=== PATIENT | female | born 1945 | race Hispanic/Latino ===

== ENCOUNTER 2020-05-18 09:53 | Emergency (ER) | payer OTHER ==
--- NOTE | 2020-05-18 10:25 | EDPHYS ---
Physician Documentation [facility] Name: Adriana De La Paz Age: 74 yrs Sex: Female : 1945 Arrival Date: 05/18/2020 Time: 09:55 Bed 20 Private MD: ED Physician Mike Cole HPI: 05/18 10:26 This 74 yrs old Female presents to ER via Ambulatory with complaints of Back kb Pain. 10:26 The patient presents with pain that is acute, with no known mechanism of injury. The kb symptoms are located in the low back. Onset: The symptoms/episode began/occurred 4 day(s) ago. The pain does not radiate. Associated signs and symptoms: The patient has no apparent associated signs or symptoms. The problem was sustained without known cause. Modifying factors: The patient symptoms are alleviated by nothing, the patient symptoms are aggravated by any movement. Severity of symptoms: At their worst the symptoms were mild, moderate, in the emergency department the symptoms are unchanged. The patient has not experienced similar symptoms in the past. The patient has not recently seen a physician. pain across low back for 4 days. Denies injury, trauma, urinary symptoms. . Historical: - Allergies: 10:02 tramadol; jl7 - PMHx: 10:02 Diabetes - NIDDM; jl7 - Immunization history:: Adult Immunizations unknown. - Social history:: Smoking status: Patient reports the use of cigarette tobacco products, smokes one-half pack cigarettes per day. ROS: 10:29 Constitutional: Negative for fever, chills, and weight loss, Cardiovascular: Negative kb for chest pain, palpitations, and edema, Respiratory: Negative for shortness of breath, cough, wheezing, and pleuritic chest pain, Abdomen/GI: Negative for abdominal pain, nausea, vomiting, diarrhea, and constipation, : Negative for injury, bleeding, discharge, and swelling, MS/Extremity: Negative for injury and deformity, Skin: Negative for injury, rash, and discoloration, Neuro: Negative for headache, weakness, numbness, tingling, and seizure. 10:29 Back: Positive for pain at rest, pain with movement, of the low back area, Negative for injury or acute deformity, decreased range of motion, radiated pain. Exam: 10:29 Constitutional: This is a well developed, well nourished patient who is awake, alert, kb and in no acute distress. Head/Face: Normocephalic, atraumatic. Cardiovascular: Regular rate and rhythm with a normal S1 and S2. No gallops, murmurs, or rubs. Normal PMI, no JVD. No pulse deficits. Respiratory: Lungs have equal breath sounds bilaterally, clear to auscultation and percussion. No rales, rhonchi or wheezes noted. No increased work of breathing, no retractions or nasal flaring. Abdomen/GI: Soft, non-tender, with normal bowel sounds. No distension or tympany. No guarding or rebound. No evidence of tenderness throughout. Back: No spinal tenderness. No costovertebral tenderness. Full range of motion. Skin: Warm, dry with normal turgor. Normal color with no rashes, no lesions, and no evidence of cellulitis. MS/ Extremity: Pulses equal, no cyanosis. Neurovascular intact. Full, normal range of motion. Neuro: Awake and alert, GCS 15, oriented to person, place, time, and situation. Cranial nerves II-XII grossly intact. Motor strength 5/5 in all extremities. Sensory grossly intact. Cerebellar exam normal. Normal gait. Vital Signs: 10:00 BP 138 / 80; Pulse 85; Resp 17; Temp 98; Pulse Ox 99% ; Weight 81.65 kg; Height 5 ft. jl7 (152.40 cm); Pain 7/10; 10:00 Body Mass Index 35.15 (81.65 kg, 152.40 cm) jl7 MDM: 10:05 Patient medically screened. kb 10:27 Data reviewed: vital signs, nurses notes. Data interpreted: Pulse oximetry: on room air kb is 99 %. Interpretation: normal. Counseling: I had a detailed discussion with the patient and/or guardian regarding: the historical points, exam findings, and any diagnostic results supporting the discharge/admit diagnosis, lab results, the need for outpatient follow up, a family practitioner, to return to the emergency department if symptoms worsen or persist or if there are any questions or concerns that arise at home. 05/18 10:21 Order name: Urine Dipstick--Ancillary (enter results) bd 05/18 10:34 Order name: Urine Dipstick-Ancillary EDAL 05/18 10:10 Order name: Urine Dipstick-Ancillary (obtain specimen); Complete Time: 10:20 kb Administered Medications: 10:32 Drug: Flexeril 10 mg Route: PO; ca1 10:35 Follow up: Response: Medication administered at discharge. ca1 10:33 Drug: TORadol 30 mg Route: IM; Site: left deltoid; ca1 10:35 Follow up: Response: Medication administered at discharge. ca1 Disposition: 05/18/20 10:25 Discharged to Home. Impression: Low back pain. - Condition is Stable. - Discharge Instructions: Musculoskeletal Pain, Back Pain, Adult, [id number], Back Exercises, [id number]. - Prescriptions for Cyclobenzaprine 10 mg Oral Tablet - take 1 tablet by ORAL route every 8 hours As needed; 21 tablet. Diclofenac Sodium 75 mg Oral Tablet, Delayed Release (E.C.) - take 1 tablet by ORAL route 2 times per day As needed; 30 tablet. - Medication Reconciliation Form, Thank You Letter, Antibiotic Education, Prescription Opioid Use form. - Follow up: Emergency Department; When: As needed; Reason: Worsening of condition. Follow up: Private Physician; When: 2 - 3 days; Reason: Recheck today's complaints, Continuance of care, Re-evaluation by your physician. Addendum: 05/19/2020 13:37 Co-signature as Attending Physician, Mike Cole MD I agree with the assessment and c newman plan of care. Signatures: Dispatcher [employer] EDLuisa Cortez, GAMER-C GAMER-Ckb Mike Cole MD MD cha Leal, Jahala, RN RN jl7 Brandi Cristina RN RN ca1 Corrections: (The following items were deleted from the chart) 05/18 10: 10:27 Counseling: I had a detailed discussion with the patient and/or guardian art regarding: the historical points, exam findings, and any diagnostic results supporting the discharge/admit diagnosis, radiology results, the need for outpatient follow up, a family practitioner, to return to the emergency department if symptoms worsen or persist or if there are any questions or concerns that arise at home, art 10:35 10:25 05/18/2020 10:25 Discharged to Home. Impression: Low back pain. Condition is ca1 Stable. Forms are Medication Reconciliation Form, Thank You Letter, Antibiotic Education, Prescription Opioid Use. Follow up: Emergency Department; When: As needed; Reason: Worsening of condition. Follow up: Private Physician; When: 2 - 3 days; Reason: Recheck today's complaints, Continuance of care, Re-evaluation by your physician. kb
--- NOTE | 2020-05-18 10:25 | ER ---
Nurse's Notes [facility] Name: Adriana De La Paz Age: 74 yrs Sex: Female : 1945 Arrival Date: 05/18/2020 Time: 09:55 Bed 20 Private MD: Diagnosis: Low back pain Presentation: 05/18 10:00 Chief complaint: Patient states: low back pain since Monday, radiates to mid back, jl7 denies trauma, denies urinary symtpoms. Coronavirus screen: Client denies travel out of the [place] in the last 14 days. At this time, the client does not indicate any symptoms associated with coronavirus-19. Ebola Screen: No symptoms or risks identified at this time. Initial Sepsis Screen: Does the patient meet any 2 criteria? No. Patient's initial sepsis screen is negative. Does the patient have a suspected source of infection? No. Patient's initial sepsis screen is negative. Risk Assessment: Do you want to hurt yourself or someone else? Patient reports no desire to harm self or others. Onset of symptoms was May 15, 2020. Care prior to arrival: None. 10:00 Method Of Arrival: Ambulatory jl7 10:00 Acuity: DEISY 4 jl7 Triage Assessment: 10:02 General: Appears in no apparent distress. uncomfortable, Behavior is calm, cooperative, jl7 appropriate for age. Pain: Complains of pain in low back area Pain currently is 7 out of 10 on a pain scale. Musculoskeletal: Range of motion: intact in all extremities. Historical: - Allergies: 10:02 tramadol; jl7 - PMHx: 10:02 Diabetes - NIDDM; jl7 - Immunization history:: Adult Immunizations unknown. - Social history:: Smoking status: Patient reports the use of cigarette tobacco products, smokes one-half pack cigarettes per day. Screenin:05 Abuse screen: Denies threats or abuse. Denies injuries from another. Nutritional ca1 screening: No deficits noted. Tuberculosis screening: No symptoms or risk factors identified. Fall Risk None identified. Assessment: 10:05 General: Appears in no apparent distress. comfortable, Behavior is calm, cooperative, ca1 appropriate for age. Pain: Complains of pain in low back area Pain does not radiate. Pain currently is 8 out of 10 on a pain scale. Pain began 2-3 days ago. Neuro: Level of Consciousness is awake, alert, obeys commands, Oriented to person, place, time, situation. : No signs and/or symptoms were reported regarding the genitourinary system. Derm: Skin is intact, is healthy with good turgor, Skin is pink, warm \T\ dry. Musculoskeletal: Circulation, motion, and sensation intact. Capillary refill < 3 seconds. 10:35 Reassessment: Patient appears in no apparent distress at this time. Patient is alert, ca1 oriented x 3, equal unlabored respirations, skin warm/dry/pink. Vital Signs: 10:00 BP 138 / 80; Pulse 85; Resp 17; Temp 98; Pulse Ox 99% ; Weight 81.65 kg; Height 5 ft. jl7 (152.40 cm); Pain 7/10; 10:00 Body Mass Index 35.15 (81.65 kg, 152.40 cm) jl7 ED Course: 09:55 Patient arrived in ED. ag5 10:01 Triage completed. jl7 10:02 Arm band placed on right wrist. jl7 10:03 Brandi Cristina, RN is Primary Nurse. ca1 10:04 Luisa Alexander FNP-C is PHCP. kb 10:04 Mike Cole MD is Attending Physician. kb 10:05 Patient has correct armband on for positive identification. Bed in low position. Call ca1 light in reach. Side rails up X 1. Pulse ox on. NIBP on. Warm blanket given. 10:20 No provider procedures requiring assistance completed. Urine collected: clean catch ca1 specimen, clear. Patient did not have IV access during this emergency room visit. Administered Medications: 10:32 Drug: Flexeril 10 mg Route: PO; ca1 10:35 Follow up: Response: Medication administered at discharge. ca1 10:33 Drug: TORadol 30 mg Route: IM; Site: left deltoid; ca1 10:35 Follow up: Response: Medication administered at discharge. ca1 Outcome: 10:25 Discharge ordered by . kb 10:35 Discharged to home ambulatory, with family. ca1 10:35 Condition: stable 10:35 Discharge instructions given to patient, Instructed on discharge instructions, follow up and referral plans. medication usage, Demonstrated understanding of instructions, follow-up care, medications, Prescriptions given X 2. 10:35 Patient left the ED. ca1 Signatures: Luisa Alexander FNP-C VOLUNTEER SERVICES SUPERVISOR-CkMarleny Frias, RN RN jl7 Brandi Cristina RN RN ca1 Heather Medina ag5
[2020-05-18 10:34] LABS: Urine Blood NEGATIVE (NEG); Urine Glucose NEGATIVE (NEG); Urine Protein NEGATIVE (NEG); Urine pH 5.5 (5.0-7.0)
[2020-05-18] MEDS ORDERED: CYCLOBENZAPRINE 10 MG TAB ONE (10:43)
[2020-05-18] MEDS ORDERED: KETOROLAC 30 MG/ML INJ ONE (10:44)
[2020-05-18 11:11] VITALS: BP 138/80; TEMP 98; O2SAT 99
== END 2020-05-18 10:35 | disposition home or self-care (01) ==
LOC: ER 09:53
DX: M54.5 Low back pain (principal); E11.9 Type 2 diabetes mellitus without complications; F17.210 Nicotine dependence, cigarettes, uncomplicated; Z88.5 Allergy status to narcotic agent
CPT/HCPCS: 81003; 96372; 99284

== ENCOUNTER 2021-03-23 09:46 | Emergency (ER) | payer OTHER ==
--- NOTE | 2021-03-23 12:23 | RAD REPORT ---
EXAM DESCRIPTION: CT - C Spine Wo Con - 03/23/2021 12:11 pm CLINICAL HISTORY: PAIN COMPARISON: <Comparisons> TECHNIQUE CT Scan was obtained of the cervical spine without contrast. Reformats were provided in th e sagittal and coronal plane. FINDINGS: No acute fracture of the cervical spine. No traumatic malalignment. No prevertebral edema. No significant focal degenerative changes. No suspicious thyroid nodules or lymphadenopathy. The nicolasa g apices are clear. Trace anterolisthesis at all the levels extending from C2-3 through C5-6. This is unlikely to be related to trauma. Scattered degenerative changes, including at the facets. No signif icant central spinal stenosis identified. Neural foraminal narrowing bilaterally is present though mi ld. IMPRESSION: No fracture or traumatic malalignment of the cervical spine.
[2021-03-23] MEDS ORDERED: IBUPROFEN 200 MG TAB PO ONE (12:24)
[2021-03-23] MEDS ORDERED: DIAZEPAM 5 MG TABLET ONE (12:26)
--- NOTE | 2021-03-23 13:00 | ER ---
Nurse's Notes [facility] Name: Adriana De La Paz Age: 75 yrs Sex: Female : 1945 Arrival Date: 03/23/2021 Time: 09:58 Bed Treatment Private MD: Diagnosis: Torticollis;Strain of muscle, fascia and tendon at neck level, initial encounter;Type 2 diabetes mellitus with hyperglycemia Presentation: 03/23 11:17 Chief complaint: Patient states: pain to left shoulder up to her neck, has a lot of iw pain when she turns her head to right and has a headache. Coronavirus screen: At this time, the client does not indicate any symptoms associated with coronavirus-19. Ebola Screen: Patient negative for fever greater than or equal to 101.5 degrees Fahrenheit, and additional compatible Ebola Virus Disease symptoms Patient denies exposure to infectious person. Patient denies travel to an Ebola-affected area in the 21 days before illness onset. No symptoms or risks identified at this time. Initial Sepsis Screen: Does the patient meet any 2 criteria? No. Patient's initial sepsis screen is negative. Does the patient have a suspected source of infection? No. Patient's initial sepsis screen is negative. Risk Assessment: Do you want to hurt yourself or someone else? Patient reports no desire to harm self or others. Onset of symptoms was March 21, 2021. 11:17 Method Of Arrival: Ambulatory iw 11:17 Acuity: DEISY 3 iw Triage Assessment: 12:00 General: Appears in no apparent distress. iw 12:30 General: Behavior is calm, cooperative. iw Historical: - Allergies: 11:19 tramadol; iw - Home Meds: 11:19 Dexilant oral [Active]; BP med [Active]; Metformin Oral [Active]; atorvastatin oral iw [Active]; - PMHx: 11:19 Diabetes - NIDDM; hyperlipidemia; iw - PSHx: 11:19 pinched nerve; hiatal hernia; hernia; throat; hysterectomy; tubal; Cholecystectomy; iw - Immunization history:: Adult Immunizations unknown. - Family history:: not pertinent. - Social history:: Smoking status: unknown. Screenin:03 Abuse screen: Denies threats or abuse. Denies injuries from another. Nutritional iw screening: No deficits noted. Tuberculosis screening: No symptoms or risk factors identified. Fall Risk None identified. Assessment: 12:00 General: Appears in no apparent distress. Behavior is calm, cooperative. Pain: iw Complains of pain in neck, back of head and back of neck Pain radiates to anterior aspect of left shoulder and posterior aspect of left shoulder. Neuro: Level of Consciousness is awake, alert, obeys commands, Oriented to person, place, time, situation, Full function. Cardiovascular: Patient's skin is warm and dry. Respiratory: Respiratory effort is even, unlabored, Respiratory pattern is regular. Derm: Skin is intact. Musculoskeletal: Range of motion: intact in all extremities. Vital Signs: 11:17 BP 110 / 82; Pulse 65; Resp 16; Temp 97.0; Pulse Ox 100% on R/A; Weight 81.19 kg; iw Height 5 ft. 0 in. (152.40 cm); Pain 6/10; 11:17 Body Mass Index 34.96 (81.19 kg, 152.40 cm) iw ED Course: 09:58 Patient arrived in ED. am2 11:19 Triage completed. iw 11:21 Arm band placed on. 11:31 Mike Cole MD is Attending Physician. [facility] 11:58 Yanira Salgado, RN is Primary Nurse. iw 12:00 Patient has correct armband on for positive identification. iw 12:11 CT C Spine In Process Unspecified. EDMS 13:03 No provider procedures requiring assistance completed. Patient did not have IV access iw during this emergency room visit. Administered Medications: 12:19 Drug: Motrin (ibuprofen) 600 mg Route: PO; iw 12:30 Follow up: Response: No adverse reaction iw Outcome: 12:59 Discharge ordered by . juanito 13:04 Discharged to home ambulatory. iw 13:04 Condition: good 13:04 Discharge instructions given to patient, Instructed on discharge instructions, follow up and referral plans. medication usage, Demonstrated understanding of instructions, follow-up care, medications, Prescriptions given X 2. 13:05 Patient left the ED. 5 Signatures: Dispatcher [employer] Mike Narvaez MD MD cha Williams, Irene, RN RN Ivette Adhikari [facility] Megha Bateman am2
--- NOTE | 2021-03-23 13:00 | EDPHYS ---
Physician Documentation [facility] Name: Adriana De La Paz Age: 75 yrs Sex: Female : 1945 Arrival Date: 03/23/2021 Time: 09:58 Bed Treatment Private MD: NAEL Physician Mike Cole HPI: 03/23 11:44 This 75 yrs old Female presents to ER via Ambulatory with complaints of Neck juanito Pain, <24hrs Old, Shoulder Pain - left. 11:44 This 75 yrs old Female presents to ER via Ambulatory with complaints of Neck juanito Pain, <24hrs Old, Shoulder Pain - left. 11:44 The patient or guardian complains of decreased range of motion, pain, tenderness. The juanito symptoms are located at the cervical spine on the base of the skull. Onset: The symptoms/episode began/occurred 2 day(s) ago. Context: The problem was sustained at an unknown location. Associated signs and symptoms: The patient has no apparent associated signs or symptoms. The pain does not radiate. Modifying factors: The symptoms are alleviated by remaining still, the symptoms are aggravated by movement. Severity of symptoms: At their worst the symptoms were mild, in the emergency department the symptoms are unchanged. The patient has not experienced similar symptoms in the past. Historical: - Allergies: 11:19 tramadol; iw - Home Meds: 11:19 Dexilant oral [Active]; BP med [Active]; Metformin Oral [Active]; atorvastatin oral iw [Active]; - PMHx: 11:19 Diabetes - NIDDM; hyperlipidemia; iw - PSHx: 11:19 pinched nerve; hiatal hernia; hernia; throat; hysterectomy; tubal; Cholecystectomy; iw - Immunization history:: Adult Immunizations unknown. - Family history:: not pertinent. - Social history:: Smoking status: unknown. ROS: 11:44 Constitutional: Negative for fever, chills, and weight loss, Eyes: Negative for injury, juanito pain, redness, and discharge, Neck: Negative for injury, pain, and swelling, Cardiovascular: Negative for chest pain, palpitations, and edema, Respiratory: Negative for shortness of breath, cough, wheezing, and pleuritic chest pain, Abdomen/GI: Negative for abdominal pain, nausea, vomiting, diarrhea, and constipation, Back: Negative for injury and pain, : Negative for injury, bleeding, discharge, and swelling, MS/Extremity: Negative for injury and deformity, Skin: Negative for injury, rash, and discoloration, Neuro: Negative for headache, weakness, numbness, tingling, and seizure, Psych: Negative for depression, anxiety, suicide ideation, homicidal ideation, and hallucinations, Allergy/Immunology: Negative for hives, rash, and allergies, Endocrine: Negative for neck swelling, polydipsia, polyuria, polyphagia, and marked weight changes, Hematologic/Lymphatic: Negative for swollen nodes, abnormal bleeding, and unusual bruising. 11:44 Neck: Positive for pain with movement, pain at rest, of the left trapezius, right trapezius, left scapular area, right scapular area and thoracic area. Exam: 11:44 Constitutional: This is a well developed, well nourished patient who is awake, alert, juanito and in no acute distress. Head/Face: Normocephalic, atraumatic. Eyes: Pupils equal round and reactive to light, extra-ocular motions intact. Lids and lashes normal. Conjunctiva and sclera are non-icteric and not injected. Cornea within normal limits. Periorbital areas with no swelling, redness, or edema. ENT: Nares patent. No nasal discharge, no septal abnormalities noted. Tympanic membranes are normal and external auditory canals are clear. Oropharynx with no redness, swelling, or masses, exudates, or evidence of obstruction, uvula midline. Mucous membranes moist. Neck: Trachea midline, no thyromegaly or masses palpated, and no cervical lymphadenopathy. Supple, full range of motion without nuchal rigidity, or vertebral point tenderness. No Meningismus. Chest/axilla: Normal chest wall appearance and motion. Nontender with no deformity. No lesions are appreciated. Cardiovascular: Regular rate and rhythm with a normal S1 and S2. No gallops, murmurs, or rubs. Normal PMI, no JVD. No pulse deficits. Respiratory: Lungs have equal breath sounds bilaterally, clear to auscultation and percussion. No rales, rhonchi or wheezes noted. No increased work of breathing, no retractions or nasal flaring. Abdomen/GI: Soft, non-tender, with normal bowel sounds. No distension or tympany. No guarding or rebound. No evidence of tenderness throughout. Female : Normal external genitalia. Skin: Warm, dry with normal turgor. Normal color with no rashes, no lesions, and no evidence of cellulitis. MS/ Extremity: Pulses equal, no cyanosis. Neurovascular intact. Full, normal range of motion. Neuro: Awake and alert, GCS 15, oriented to person, place, time, and situation. Cranial nerves II-XII grossly intact. Motor strength 5/5 in all extremities. Sensory grossly intact. Cerebellar exam normal. Normal gait. Psych: Awake, alert, with orientation to person, place and time. Behavior, mood, and affect are within normal limits. 11:44 Back: pain, that is mild, that is moderate, of the left trapezius, right trapezius, left scapular area, right scapular area and thoracic area, ROM is painful, normal spinal alignment noted, CVA tenderness, that is mild, vertebral tenderness, is not appreciated, muscle spasm, is appreciated in the left trapezius, right trapezius, left scapular area, right scapular area and thoracic area. Vital Signs: 11:17 BP 110 / 82; Pulse 65; Resp 16; Temp 97.0; Pulse Ox 100% on R/A; Weight 81.19 kg; iw Height 5 ft. 0 in. (152.40 cm); Pain 6/10; 11:17 Body Mass Index 34.96 (81.19 kg, 152.40 cm) iw MDM: 11:31 Patient medically screened. [facility] 12:02 Differential diagnosis: Cervical Disc Herniation Cervical Raiculopathy cervical strain, juanito Degenerative Disc Disease Neck Contusion Whiplash Injury. Data reviewed: vital signs, nurses notes, radiologic studies, CT scan. Data interpreted: hard hat diver: not applicable for this patient encounter. rate is 65 beats/min, rhythm is regular, Pulse oximetry: on room air is 100 %. Counseling: I had a detailed discussion with the patient and/or guardian regarding: the historical points, exam findings, and any diagnostic results supporting the discharge/admit diagnosis, lab results, the need for outpatient follow up, for definitive care, a family practitioner, a neurologist. 03/23 11:43 Order name: CT C Spine; Complete Time: 12:59 juanito Administered Medications: 12:19 Drug: Motrin (ibuprofen) 600 mg Route: PO; iw 12:30 Follow up: Response: No adverse reaction iw Disposition Summary: 03/23/21 12:59 Discharge Ordered Location: Home juanito Problem: new juanito Symptoms: have improved juanito Condition: Stable juanito Diagnosis - Torticollis juanito - Strain of muscle, fascia and tendon at neck level, initial encounter juanito - Type 2 diabetes mellitus with hyperglycemia juanito Followup: juanito - With: Private Physician - When: 2 - 3 days - Reason: Recheck today's complaints, Continuance of care, Re-evaluation by your physician Discharge Instructions: - Discharge Summary Sheet juanito - Type 2 Diabetes Mellitus, Diagnosis, Adult juanito - Acute Torticollis, Adult juanito Forms: - Medication Reconciliation Form juanito - Thank You Letter juanito - Antibiotic Education juanito - Prescription Opioid Use juanito Prescriptions: - Valium 2 mg Oral Tablet - take 1 tablet by ORAL route every 8 hours As needed; 20 tablet; Refills: 0, juanito Product Selection Permitted - Medrol (Kumar) 4 mg Oral Tablets, Dose Pack - take 1 tablet by ORAL route as directed - follow package instructions; 1 juanito packet; Refills: 0, Product Selection Permitted - Motrin IB 200 mg Oral Tablet - take 2 tablet by ORAL route every 6 hours As needed as needed with food; 30 juanito tablet; Refills: 0, Product Selection Permitted Signatures: Dispatcher [employer] Mike Narvaez MD MD cha Williams, Irene, RN RN iw
[2021-03-23 13:14] VITALS: BP 110/82; TEMP 97; O2SAT 100
== END 2021-03-23 13:05 | disposition home or self-care (01) ==
LOC: ER 09:46
DX: S16.1XXA Strain of muscle, fascia and tendon at neck level, initial encounter (principal); E11.65 Type 2 diabetes mellitus with hyperglycemia; Z88.5 Allergy status to narcotic agent
CPT/HCPCS: 72125; 99283

== ENCOUNTER 2023-05-12 11:20 | Emergency (ER) | payer OTHER ==
--- OUTSIDE RECORDS SUMMARY | 2023-05-12 11:26 | XMS REPORT | Continuity of Care Document ---
:1945 Author Organization [facility] t Address [address] [facility] [address] [place] [address] Care Team Providers Name Role Phone Mary Lou PHILLIPS, Benjie Primary Care Physician [phone] Problems This patient has no known problems. Allergies, Adverse Reactions, Alerts Allergy Allergy Status Severity Reaction(s) Onset Inactive Treating Comm ents Source Name Type Date Date Clinician Tramadol Propensi Active ty to 2-18 adverse 00:00: reaction 00 to drug Medications Ordered Filled Start Stop Current Ordering Indication Dosage Frequency Signature Comments Components Source Medication Medication Date Date Medication? Clinician (SIG) Name Name Dose 2021-0 No Unknown 8-15 00:00: 00 Dose 2021-0 No Unknown 815 00:00: 00 Dose 2021-0 No Unknown 8-11 00:00: 00 TAKE 1 2021-0 No 60 TABLET BY 8-11 MOUTH EVERY 00:00: DAY 00 Dose 2021-0 No Unknown 8-11 00:00: 00 TAKE 1 2021-0 No 60 TABLET BY 8-11 MOUTH EVERY 00:00: DAY 00 Dose 2021-0 No Unknown 8-10 00:00: 00 TAKE 1 2021-0 No 40 CAPSULE BY 8-10 MOUTH EVERY 00:00: DAY 00 &lt 2021-0 No 300 8-10 00:00: 00 TAKE 1 2021-0 No 40 TABLET BY 8-10 MOUTH DAILY 00:00: AT NIGHT 00 Dose 2-0 No Unknown 8-10 00:00: 00 Dose 2021-0 No Unknown 8-10 00:00: 00 TAKE 1 2021-0 No 40 CAPSULE BY 8-10 MOUTH EVERY 00:00: DAY 00 &lt 2021-0 No 300 8-10 00:00: 00 TAKE 1 2022-0 No 40 TABLET BY 8-10 MOUTH DAILY 00:00: AT NIGHT 00 Dose 2022-0 No Unknown 8 00:00: 00 TAKE 1 2022-0 No 2 TABLET BY 7-11 MOUTH EVERY 00:00: 8 HOURS 00 NEEDED Dose 2022-0 No Unknown 7 00:00: 00 TAKE 1 2022-0 No 2 TABLET BY 7-11 MOUTH EVERY 00:00: 8 HOURS 00 NEEDED Dose 2022-0 No Unknown 7 00:00: 00 Dose 2022-0 No Unknown 7- 00:00: 00 Dose 2022-0 No Unknown 7 00:00: 00 Dose 2022-0 No Unknown 02-25 00:00: 00 Dose 2022-0 No Unknown 02-25 00:00: 00 Dose 2022-0 No Unknown 02-25 00:00: 00 Dose 2022-0 No Unknown 7- 00:00: 00 &lt 2022-0 No 7- 00:00: 00 &lt 2022-0 No 7- 00:00: 00 TAKE 1 2022-0 No TABLET BY 7- MOUTH THREE 00:00: TIMES A DAY 00 NEEDED FOR MUSCLE SPASMS TAKE 1 2022-0 No TABLET BY 7- MOUTH THREE 00:00: TIMES A DAY 00 NEEDED FOR MUSCLE SPASMS &lt 2022-0 No 7- 00:00: 00 &lt 2022-0 No 7- 00:00: 00 &lt 2022-0 No 7- 00:00: 00 TAKE 1 2022-0 No TABLET BY 7- MOUTH THREE 00:00: TIMES A DAY 00 NEEDED FOR MUSCLE SPASMS &lt 2022-0 No 7- 00:00: 00 Dose 2022-0 No Unknown 7- 00:00: 00 &lt 2022-0 No 7- 00:00: 00 &lt 2022-0 No 7- 00:00: 00 TAKE 1 2022-0 No TABLET BY 7- MOUTH THREE 00:00: TIMES A DAY 00 NEEDED FOR MUSCLE SPASMS TAKE 1 2022-0 No TABLET BY 7-01 MOUTH THREE 00:00: TIMES A DAY 00 NEEDED FOR MUSCLE SPASMS &lt 2022-0 No 7- 00:00: 00 &lt 2022-0 No 7-01 00:00: 00 &lt 2022-0 No 7-01 00:00: 00 TAKE 1 2-0 No TABLET BY 7- MOUTH THREE 00:00: TIMES A DAY 00 NEEDED FOR MUSCLE SPASMS &lt 2022-0 No 7-01 00:00: 00 Dose 2022-0 No Unknown 7-01 00:00: 00 sertraline 2022-0 No 1mg 100 mg 6-14 tablet 00:00: 00 omeprazole 2022-0 No 1mg 40 mg 6-14 capsule,del 00:00: ayed 00 release sertraline 2022-0 No 1mg 100 mg 6-14 tablet 00:00: 00 omeprazole 2022-0 No 1mg 40 mg 6-14 capsule,del 00:00: ayed 00 release Dose 2022-0 No Unknown 3-30 00:00: 00 Dose 2022-0 No Unknown 3-30 00:00: 00 Dose 2022-0 No Unknown 3-30 00:00: 00 Dose 2022-0 No Unknown 3-30 00:00: 00 Dose 2022-0 No Unknown 3-30 00:00: 00 Dose 2022-0 No Unknown 3-30 00:00: 00 Dose 2022-0 No Unknown 3-30 00:00: 00 Dose 2022-0 No Unknown 3-30 00:00: 00 Dose 2022-0 No Unknown 3-30 00:00: 00 Dose 2022-0 No Unknown 3-30 00:00: 00 sertraline 2022-0 No 1mg 100 mg 3-28 tablet 00:00: 00 sertraline 2022-0 No 1mg 100 mg 3-28 tablet 00:00: 00 Dose 2022-0 No Unknown 3-22 00:00: 00 Dose 2022-0 No Unknown 3-22 00:00: 00 Dose 2022-0 No Unknown 3-22 00:00: 00 Dose 2022-0 No Unknown 3-22 00:00: 00 Dose 2022-0 No Unknown 3-22 00:00: 00 Dose 2022-0 No Unknown 3-22 00:00: 00 Dose 2022-0 No Unknown 3-22 00:00: 00 Dose 2022-0 No Unknown 3-22 00:00: 00 Dose 2022-0 No Unknown 3-22 00:00: 00 Dose 2022-0 No Unknown 3-22 00:00: 00 Dose 2022-0 No Unknown 3-22 00:00: 00 Dose 2022-0 No Unknown 3-22 00:00: 00 Dose 2022-0 No Unknown 3-22 00:00: 00 Dose 2022-0 No Unknown 3-22 00:00: 00 Dose 2022-0 No Unknown 3-22 00:00: 00 Dose 2022-0 No Unknown 3-22 00:00: 00 Dose 2022-0 No Unknown 3-22 00:00: 00 Dose 2022-0 No Unknown 3-22 00:00: 00 Dose 2022-0 No Unknown 3-22 00:00: 00 Dose 2022-0 No Unknown 3-22 00:00: 00 Dose 2022-0 No Unknown 3-16 00:00: 00 Dose 2022-0 No Unknown 3-16 00:00: 00 Dose 2022-0 No Unknown 3-16 00:00: 00 Dose 2022-0 No Unknown 3-16 00:00: 00 Dose 2022-0 No Unknown 3-16 00:00: 00 Dose 2022-0 No Unknown 3-16 00:00: 00 Dose 2022-0 No Unknown 3-15 00:00: 00 Dose 2022-0 No Unknown 3-15 00:00: 00 Dose 2022-0 No Unknown 3-15 00:00: 00 Dose 2022-0 No Unknown 3-15 00:00: 00 Dose 2022-0 No Unknown 3-15 00:00: 00 Dose 2022-0 No Unknown 3-15 00:00: 00 Dose 2022-0 No Unknown 3-15 00:00: 00 Dose 2022-0 No Unknown 3-15 00:00: 00 Dose 2022-0 No Unknown 3-15 00:00: 00 Dose 2022-0 No Unknown 3-15 00:00: 00 Dose 2022-0 No Unknown 3-15 00:00: 00 Dose 2022-0 No Unknown 3-15 00:00: 00 Dose 2022-0 No Unknown 3-15 00:00: 00 Dose 2022-0 No Unknown 3-15 00:00: 00 Dose 2022-0 No Unknown 3-15 00:00: 00 Dose 2022-0 No Unknown 3-15 00:00: 00 Dose 2022-0 No Unknown 3-15 00:00: 00 Dose 2022-0 No Unknown 3-15 00:00: 00 Dose 2022-0 No Unknown 3-15 00:00: 00 omeprazole 2022-0 No 1mg 40 mg 3-15 capsule,del 00:00: ayed 00 release Dose 2022-0 No Unknown 3-15 00:00: 00 Dose 2022-0 No Unknown 3-15 00:00: 00 Dose 2022-0 No Unknown 3-15 00:00: 00 Dose 2022-0 No Unknown 3-15 00:00: 00 Dose 2022-0 No Unknown 3-15 00:00: 00 Dose 2022-0 No Unknown 3-15 00:00: 00 Dose 2022-0 No Unknown 3-15 00:00: 00 Dose 2022-0 No Unknown 3-15 00:00: 00 Dose 2022-0 No Unknown 3-15 00:00: 00 Dose 2022-0 No Unknown 3-15 00:00: 00 Dose 2022-0 No Unknown 3-15 00:00: 00 Dose 2022-0 No Unknown 3-15 00:00: 00 Dose 2022-0 No Unknown 3-15 00:00: 00 Dose 2022-0 No Unknown 3-15 00:00: 00 Dose 2022-0 No Unknown 3-15 00:00: 00 Dose 2022-0 No Unknown 3-15 00:00: 00 Dose 2022-0 No Unknown 3-15 00:00: 00 Dose 2022-0 No Unknown 3-15 00:00: 00 Dose 2022-0 No Unknown 3-15 00:00: 00 Dose 2022-0 No Unknown 3-15 00:00: 00 Dose 2022-0 No Unknown 3-15 00:00: 00 Dose 2022-0 No Unknown 3-15 00:00: 00 Dose 2022-0 No Unknown 3-15 00:00: 00 Dose 2022-0 No Unknown 3-15 00:00: 00 Dose 2022-0 No Unknown 3-15 00:00: 00 Dose 2022-0 No Unknown 3-15 00:00: 00 Dose 2022-0 No Unknown 3-15 00:00: 00 Dose 2022-0 No Unknown 3-15 00:00: 00 Dose 2022-0 No Unknown 3-15 00:00: 00 Dose 2022-0 No Unknown 3-15 00:00: 00 Dose 2022-0 No Unknown 3-15 00:00: 00 Dose 2022-0 No Unknown 3-15 00:00: 00 Dose 2022-0 No Unknown 3-15 00:00: 00 Dose 2022-0 No Unknown 3-15 00:00: 00 Dose 2022-0 No Unknown 3-15 00:00: 00 Dose 2022-0 No Unknown 3-15 00:00: 00 Dose 2022-0 No Unknown 3-15 00:00: 00 Dose 2022-0 No Unknown 3-15 00:00: 00 Dose 2022-0 No Unknown 3-15 00:00: 00 Dose 2022-0 No Unknown 3-15 00:00: 00 Dose 2022-0 No Unknown 3-15 00:00: 00 Dose 2022-0 No Unknown 3-15 00:00: 00 Dose 2022-0 No Unknown 3-15 00:00: 00 Dose 2022-0 No Unknown 3-15 00:00: 00 Dose 2022-0 No Unknown 3-15 00:00: 00 Dose 2022-0 No Unknown 3-15 00:00: 00 Dose 2022-0 No Unknown 3-15 00:00: 00 Dose 2022-0 No Unknown 3-15 00:00: 00 Dose 2022-0 No Unknown 3-15 00:00: 00 Dose 2022-0 No Unknown 3-15 00:00: 00 Dose 2022-0 No Unknown 3-15 00:00: 00 Dose 2022-0 No Unknown 3-15 00:00: 00 Dose 2022-0 No Unknown 3-15 00:00: 00 Dose 2022-0 No Unknown 3-15 00:00: 00 Dose 2022-0 No Unknown 3-15 00:00: 00 Dose 2022-0 No Unknown 3-15 00:00: 00 Dose 2022-0 No Unknown 3-15 00:00: 00 Dose 2022-0 No Unknown 3-15 00:00: 00 Dose 2022-0 No Unknown 3-15 00:00: 00 Dose 2022-0 No Unknown 3-15 00:00: 00 Dose 2022-0 No Unknown 3-15 00:00: 00 Dose 2022-0 No Unknown 3-15 00:00: 00 Dose 2022-0 No Unknown 3-15 00:00: 00 Dose 2022-0 No Unknown 3-15 00:00: 00 Dose 2022-0 No Unknown 3-15 00:00: 00 omeprazole 2022-0 No 1mg 40 mg 3-15 capsule,del 00:00: ayed 00 release Dose 2022-0 No Unknown 3-15 00:00: 00 Dose 2022-0 No Unknown 3-15 00:00: 00 Dose 2022-0 No Unknown 3-15 00:00: 00 Dose 2022-0 No Unknown 3-15 00:00: 00 Dose 2022-0 No Unknown 3-15 00:00: 00 Dose 2022-0 No Unknown 3-15 00:00: 00 Dose 2022-0 No Unknown 3-15 00:00: 00 Dose 2022-0 No Unknown 3-15 00:00: 00 Dose 2022-0 No Unknown 3-15 00:00: 00 Dose 2022-0 No Unknown 3-15 00:00: 00 Dose 2022-0 No Unknown 3-15 00:00: 00 Dose 2022-0 No Unknown 3-15 00:00: 00 Dose 2022-0 No Unknown 3-15 00:00: 00 Dose 2022-0 No Unknown 3-15 00:00: 00 Dose 2022-0 No Unknown 3-15 00:00: 00 Dose 2022-0 No Unknown 3-15 00:00: 00 Dose 2022-0 No Unknown 3-15 00:00: 00 Dose 2022-0 No Unknown 3-15 00:00: 00 Dose 2022-0 No Unknown 3-15 00:00: 00 Dose 2022-0 No Unknown 3-15 00:00: 00 Dose 2022-0 No Unknown 3-15 00:00: 00 Dose 2022-0 No Unknown 3-15 00:00: 00 Dose 2022-0 No Unknown 3-15 00:00: 00 Dose 2022-0 No Unknown 3-15 00:00: 00 Dose 2022-0 No Unknown 3-15 00:00: 00 Dose 2022-0 No Unknown 3-15 00:00: 00 Dose 2022-0 No Unknown 3-15 00:00: 00 Dose 2022-0 No Unknown 3-15 00:00: 00 Dose 2022-0 No Unknown 3-15 00:00: 00 Dose 2022-0 No Unknown 3-15 00:00: 00 Dose 2022-0 No Unknown 3-15 00:00: 00 Dose 2022-0 No Unknown 3-15 00:00: 00 Dose 2022-0 No Unknown 3-15 00:00: 00 Dose 2022-0 No Unknown 3-15 00:00: 00 Dose 2022-0 No Unknown 3-15 00:00: 00 Dose 2022-0 No Unknown 3-15 00:00: 00 Dose 2022-0 No Unknown 3-15 00:00: 00 Dose 2022-0 No Unknown 3-15 00:00: 00 Dose 2022-0 No Unknown 3-15 00:00: 00 Dose 2022-0 No Unknown 3-15 00:00: 00 Dose 2022-0 No Unknown 3-15 00:00: 00 Dose 2022-0 No Unknown 3-15 00:00: 00 Dose 2022-0 No Unknown 3-15 00:00: 00 Dose 2022-0 No Unknown 3-15 00:00: 00 Dose 2022-0 No Unknown 3-15 00:00: 00 Dose 2022-0 No Unknown 3-15 00:00: 00 gabapentin 2022-0 No 1mg 300 mg 2-10 capsule 00:00: 00 gabapentin 2022-0 No 1mg 300 mg 2-10 capsule 00:00: 00 Dose 2022-0 No Unknown 2-08 00:00: 00 Dose 2022-0 No Unknown 2-08 00:00: 00 metformin 2022-0 No 1mg 500 mg 2-08 tablet 00:00: 00 Dexilant 30 2022-0 No 1mg mg capsule, 2-08 delayed 00:00: release 00 Dose 2022-0 No Unknown 2-08 00:00: 00 pravastatin 2022-0 No 1mg 40 mg 2-08 tablet 00:00: 00 metformin 2022-0 No 1mg 500 mg 2-08 tablet 00:00: 00 Dexilant 30 2022-0 No 1mg mg capsule, 2-08 delayed 00:00: release 00 Dexilant 30 1-1 No 1mg mg capsule, 1-22 delayed 00:00: release 00 Dexilant 30 1-1 No 1mg mg capsule, 1-22 delayed 00:00: release 00 fluoxetine 2021-1 No 1mg 60 mg 1-09 tablet 00:00: 00 fluoxetine 2021-1 No 1mg 60 mg 1-09 tablet 00:00: 00 Prozac 40 2021-0 No 1mg mg capsule 05-11 00:00: 00 Prozac 40 2021-0 No 1mg mg capsule 05-11 00:00: 00 pravastatin 2021-0 No 1mg 40 mg 8-09 tablet 00:00: 00 pravastatin 2021-0 No 1mg 40 mg 8-09 tablet 00:00: 00 fluoxetine 2021-0 No 1mg 60 mg 8-09 tablet 00:00: 00 metformin 2021-0 No 1mg 500 mg 8-09 tablet 00:00: 00 cyclobenzap 2021-0 No 1mg rine 5 mg 8-09 tablet 00:00: 00 Dexilant 30 2021-0 No 1mg mg capsule, 8-09 delayed 00:00: release 00 fluoxetine 2021-0 No 1mg 60 mg 8-09 tablet 00:00: 00 metformin 2021-0 No 1mg 500 mg 8-09 tablet 00:00: 00 cyclobenzap 2021-0 No 1mg rine 5 mg 8-09 tablet 00:00: 00 Dexilant 30 2021-0 No 1mg mg capsule, 8-09 delayed 00:00: release 00 pravastatin 2021-0 No 1mg 40 mg 4-16 tablet 00:00: 00 metformin 2021-0 No 1mg 500 mg 4-16 tablet 00:00: 00 fluoxetine 2021-0 No 1mg 40 mg 4-16 capsule 00:00: 00 Dexilant 30 2021-0 No 1mg mg capsule, 4-16 delayed 00:00: release 00 pravastatin 2021-0 No 1mg 40 mg 4-16 tablet 00:00: 00 metformin 2021-0 No 1mg 500 mg 4-16 tablet 00:00: 00 fluoxetine 2021-0 No 1mg 40 mg 4-16 capsule 00:00: 00 Dexilant 30 2021-0 No 1mg mg capsule, 4-16 delayed 00:00: release 00 pravastatin 2020-0 No 1mg 40 mg 9-22 tablet 00:00: 00 metformin 2020-0 No 1mg 500 mg 9-22 tablet 00:00: 00 Dexilant 30 2020-0 No 1mg mg capsule, 9- delayed 00:00: release 00 fluoxetine 2020-0 No 1mg 40 mg 9-22 capsule 00:00: 00 pravastatin 2020-0 No 1mg 40 mg 9-22 tablet 00:00: 00 metformin 2020-0 No 1mg 500 mg 9-22 tablet 00:00: 00 Dexilant 30 2020-0 No 1mg mg capsule, 9- delayed 00:00: release 00 fluoxetine 2020-0 No 1mg 40 mg 9-22 capsule 00:00: 00 pravastatin 2020-0 No 1mg 40 mg 6-03 tablet 00:00: 00 metformin 2020-0 No 1mg 500 mg 6-03 tablet 00:00: 00 fluoxetine 2020-0 No 1mg 40 mg 6-03 capsule 00:00: 00 Dexilant 30 2020-0 No 1mg mg capsule, 6-03 delayed 00:00: release 00 pravastatin 2020-0 No 1mg 40 mg 6-03 tablet 00:00: 00 metformin 2020-0 No 1mg 500 mg 6-03 tablet 00:00: 00 fluoxetine 2020-0 No 1mg 40 mg 6-03 capsule 00:00: 00 Dexilant 30 2020-0 No 1mg mg capsule, 6-03 delayed 00:00: release 00 diclofenac 2020-0 No 1% 1 % topical 3-18 gel 00:00: 00 Dose 2020-0 No Unknown 3-18 00:00: 00 Zyrtec 10 2020-0 No 1mg mg tablet 2-03 00:00: 00 Zyrtec 10 2020-0 No 1mg mg tablet 2-03 00:00: 00 loratadine 2019-1 No 1mg 10 mg 2-11 tablet 00:00: 00 Miralax 17 2019-1 No 1gram gram oral 2-11 powder 00:00: packet 00 loratadine 2019-1 No 1mg 10 mg 2-11 tablet 00:00: 00 Miralax 17 2019-1 No 1gram gram oral 2-11 powder 00:00: packet 00 pravastatin 2019-1 No 1mg 40 mg 1-20 tablet 00:00: 00 metformin 2019-1 No 1mg 500 mg 1-20 tablet 00:00: 00 Dexilant 30 2019-1 No 1mg mg capsule, 1-20 delayed 00:00: release 00 fluoxetine 2019-1 No 1mg 40 mg 1-20 capsule 00:00: 00 pravastatin 2019-1 No 1mg 40 mg 1-20 tablet 00:00: 00 metformin 2019-1 No 1mg 500 mg 1-20 tablet 00:00: 00 Dexilant 30 2019-1 No 1mg mg capsule, 1-20 delayed 00:00: release 00 fluoxetine 2019-1 No 1mg 40 mg 1-20 capsule 00:00: 00 pravastatin 2019-0 No 1mg 40 mg 9-04 tablet 00:00: 00 metformin 2019-0 No 1mg 500 mg 9-04 tablet 00:00: 00 fluoxetine 2019-0 No 1mg 40 mg 9-04 capsule 00:00: 00 pravastatin 2019-0 No 1mg 40 mg 9-04 tablet 00:00: 00 metformin 2019-0 No 1mg 500 mg 9-04 tablet 00:00: 00 fluoxetine 2019-0 No 1mg 40 mg 9-04 capsule 00:00: 00 pravastatin 2019-0 No 1mg 40 mg 8-27 tablet 00:00: 00 metformin 2019-0 No 1mg 500 mg 8-27 tablet 00:00: 00 fluoxetine 2019-0 No 1mg 40 mg 8-27 capsule 00:00: 00 pravastatin 2019-0 No 1mg 40 mg 8-27 tablet 00:00: 00 metformin 2019-0 No 1mg 500 mg 8-27 tablet 00:00: 00 fluoxetine 2019-0 No 1mg 40 mg 8-27 capsule 00:00: 00 pravastatin 2019-0 No 1mg 40 mg 5-15 tablet 00:00: 00 metformin 2019-0 No 1mg 500 mg 5-15 tablet 00:00: 00 fluticasone 2019-0 No 2mcg/ac propionate 5-15 tuation 50 00:00: mcg/actuati 00 on nasal spray,suspe nsion fluoxetine 2019-0 No 1mg 40 mg 5-15 capsule 00:00: 00 pravastatin 2019-0 No 1mg 40 mg 5-15 tablet 00:00: 00 metformin 2019-0 No 1mg 500 mg 5-15 tablet 00:00: 00 fluticasone 2019-0 No 2mcg/ac propionate 5-15 tuation 50 00:00: mcg/actuati 00 on nasal spray,suspe nsion fluoxetine 2019-0 No 1mg 40 mg 5-15 capsule 00:00: 00 pravastatin 2019-0 No 1mg 40 mg 2-13 tablet 00:00: 00 metformin 2019-0 No 2mg 500 mg 2-13 tablet 00:00: 00 ranitidine 2019-0 No 1mg 150 mg 2-13 tablet 00:00: 00 metformin 2019-0 No 1mg 500 mg 2-13 tablet 00:00: 00 fluoxetine 2019-0 No 1mg 20 mg 2-13 capsule 00:00: 00 gabapentin 2019-0 No 1mg 300 mg 2-13 capsule 00:00: 00 pravastatin 2019-0 No 1mg 40 mg 2-13 tablet 00:00: 00 metformin 2019-0 No 2mg 500 mg 2-13 tablet 00:00: 00 ranitidine 2019-0 No 1mg 150 mg 2-13 tablet 00:00: 00 metformin 2019-0 No 1mg 500 mg 2-13 tablet 00:00: 00 fluoxetine 2019-0 No 1mg 20 mg 2-13 capsule 00:00: 00 gabapentin 2019-0 No 1mg 300 mg 2-13 capsule 00:00: 00 Vital Signs Vital Name Observation Time Observation Value Comments Source BP Systolic 2022-05-18 08:30:00 117 mm[Hg] BP Diastolic 2022-05-18 08:30:00 72 mm[Hg] Weight Measured 2022-05-18 08:30:00 183.20 pounds Height Measured 2022-05-18 08:30:00 60.00 inches Body Temperature 2022-05-18 08:30:00 Heart Rate 2022-05-18 08:30:00 Respiratory Rate 2022-05-18 08:30:00 BP Systolic 2022-04-06 09:25:00 129 mm[Hg] BP Diastolic 2022-04-06 09:25:00 74 mm[Hg] Weight Measured 2022-04-06 09:25:00 186.20 pounds Height Measured 2022-04-06 09:25:00 60.00 inches Body Temperature 2022-04-06 09:25:00 98.30 degrees Heart Rate 2022-04-06 09:25:00 69.00 /min Respiratory Rate 2022-04-06 09:25:00 18.00 /min BP Systolic 2021-12-23 15:39:00 BP Diastolic 2021-12-23 15:39:00 Weight Measured 2021-12-23 15:39:00 182.00 pounds Height Measured 2021-12-23 15:39:00 60.00 inches Body Temperature 2021-12-23 15:39:00 Heart Rate 2021-12-23 15:39:00 Respiratory Rate 2021-12-23 15:39:00 BP Systolic 2021-11-17 09:30:00 113 mm[Hg] BP Diastolic 2021-11-17 09:30:00 76 mm[Hg] Weight Measured 2021-11-17 09:30:00 182.00 pounds Height Measured 2021-11-17 09:30:00 60.00 inches Body Temperature 2021-11-17 09:30:00 98.30 degrees Heart Rate 2021-11-17 09:30:00 77.00 /min Respiratory Rate 2021-11-17 09:30:00 16.00 /min BP Systolic 2021-11-09 09:00:00 115 mm[Hg] BP Diastolic 2021-11-09 09:00:00 68 mm[Hg] Weight Measured 2021-11-09 09:00:00 178.60 pounds Height Measured 2021-11-09 09:00:00 60.43 inches Body Temperature 2021-11-09 09:00:00 98.20 degrees Heart Rate 2021-11-09 09:00:00 84.00 /min Respiratory Rate 2021-11-09 09:00:00 16.00 /min BP Systolic 2021-11-02 09:10:00 109 mm[Hg] BP Diastolic 2021-11-02 09:10:00 72 mm[Hg] Weight Measured 2021-11-02 09:10:00 175.80 pounds Height Measured 2021-11-02 09:10:00 60.43 inches Body Temperature 2021-11-02 09:10:00 98.20 degrees Heart Rate 2021-11-02 09:10:00 86.00 /min Respiratory Rate 2021-11-02 09:10:00 17.00 /min BP Systolic 2021-09-30 13:55:00 106 mm[Hg] BP Diastolic 2021-09-30 13:55:00 71 mm[Hg] Weight Measured 2021-09-30 13:55:00 179.40 pounds Height Measured 2021-09-30 13:55:00 60.43 inches Body Temperature 2021-09-30 13:55:00 98.90 degrees Heart Rate 2021-09-30 13:55:00 85.00 /min Respiratory Rate 2021-09-30 13:55:00 16.00 /min BP Systolic 2021-09-07 10:41:00 BP Diastolic 2021-09-07 10:41:00 Weight Measured 2021-09-07 10:41:00 177.60 pounds Height Measured 2021-09-07 10:41:00 60.43 inches Body Temperature 2021-09-07 10:41:00 98.50 degrees Heart Rate 2021-09-07 10:41:00 98.00 /min Respiratory Rate 2021-09-07 10:41:00 16.00 /min BP Systolic 2021-09-07 10:24:00 110 mm[Hg] BP Diastolic 2021-09-07 10:24:00 63 mm[Hg] Weight Measured 2021-09-07 10:24:00 177.60 pounds Height Measured 2021-09-07 10:24:00 60.43 inches Body Temperature 2021-09-07 10:24:00 98.50 degrees Heart Rate 2021-09-07 10:24:00 98.00 /min Respiratory Rate 2021-09-07 10:24:00 16.00 /min BP Systolic 2021-03-29 09:15:00 131 mm[Hg] BP Diastolic 2021-03-29 09:15:00 79 mm[Hg] Weight Measured 2021-03-29 09:15:00 184.40 pounds Height Measured 2021-03-29 09:15:00 60.43 inches Body Temperature 2021-03-29 09:15:00 98.20 degrees Heart Rate 2021-03-29 09:15:00 83.00 /min Respiratory Rate 2021-03-29 09:15:00 17.00 /min BP Systolic 2020-10-12 10:07:00 126 mm[Hg] BP Diastolic 2020-10-12 10:07:00 85 mm[Hg] Weight Measured 2020-10-12 10:07:00 182.20 pounds Height Measured 2020-10-12 10:07:00 60.43 inches Body Temperature 2020-10-12 10:07:00 98.30 degrees Heart Rate 2020-10-12 10:07:00 73.00 /min Respiratory Rate 2020-10-12 10:07:00 16.00 /min Procedures This patient has no known procedures. Plan of Care Planned Activity Planned Date Details Comments Source Goal Plan of Care Note [code = 04505-9] Goal Plan of Care Note [code = 06656-5] Goal Plan of Care Note [code = 18299-2] Goal Plan of Care Note [code = 28916-5] Goal Plan of Care Note [code = 77808-9] Goal Plan of Care Note [code = 89039-9] Goal Plan of Care Note [code = 04614-8] Goal Plan of Care Note [code = 68689-1] Goal Plan of Care Note [code = 04076-2] Goal Plan of Care Note [code = 74553-7] Goal Plan of Care Note [code = 94461-8] Goal Plan of Care Note [code = 91811-0] Goal Plan of Care Note [code = 35783-1] Goal Plan of Care Note [code = 42495-2] Goal Plan of Care Note [code = 83393-6] Goal Plan of Care Note [code = 24655-2] Goal Plan of Care Note [code = 02092-9] Goal Plan of Care Note [code = 46770-2] Goal Plan of Care Note [code = 26526-6] Goal Plan of Care Note [code = 18034-4] Goal Plan of Care Note [code = 59581-6] Goal Plan of Care Note [code = 22769-0] Goal Plan of Care Note [code = 02006-2] Goal Plan of Care Note [code = 30340-8] Goal Plan of Care Note [code = 88185-5] Goal Plan of Care Note [code = 95722-5] Goal Plan of Care Note [code = 80696-8] Goal Plan of Care Note [code = 55130-0] Goal Plan of Care Note [code = 51561-3] Goal Plan of Care Note [code = 10476-1] Goal Plan of Care Note [code = 26816-5] Goal Plan of Care Note [code = 72873-6] Goal Plan of Care Note [code = 85934-1] Goal Plan of Care Note [code = 53051-9] Goal Plan of Care Note [code = 52085-7] Goal Plan of Care Note [code = 89232-2] Goal Plan of Care Note [code = 67594-4] Goal Plan of Care Note [code = 32131-7] Goal Plan of Care Note [code = 89944-6] Goal Plan of Care Note [code = 73783-4] Goal Plan of Care Note [code = 57779-2] Goal Plan of Care Note [code = 95247-4] Goal Plan of Care Note [code = 69850-5] Goal Plan of Care Note [code = 61578-0] Goal Plan of Care Note [code = 14916-8] Goal Plan of Care Note [code = 96882-7] Goal Plan of Care Note [code = 73695-2] Goal Plan of Care Note [code = 60433-6] Goal Plan of Care Note [code = 81238-1] Goal Plan of Care Note [code = 98410-0] Goal Plan of Care Note [code = 54507-4] Goal Plan of Care Note [code = 08519-9] Goal Plan of Care Note [code = 91902-0] Goal Plan of Care Note [code = 03482-1] Goal Plan of Care Note [code = 14916-4] Goal Plan of Care Note [code = 37910-0] Goal Plan of Care Note [code = 27583-8] Goal Plan of Care Note [code = 60817-6] Goal Plan of Care Note [code = 66827-6] Goal Plan of Care Note [code = 28418-0] Goal Plan of Care Note [code = 01428-5] Encounters Start End Encounter Admission Attending Care Care Encounter Source Date/Time Date/Time Type Type Clinicians Facility Department ID 2022-11-22 2022-11-22 Outpatient [facility] [id number] Edwin 08:39:07 08:39:[address] 2022-11-14 2022-11-14 Outpatient [facility] [id number] Edwin 09:24:21 09:24:[address] 2022-05-24 2022-05-24 Outpatient [facility] CATHERINE [id number] Edwin 08:51:31 08:51:[address] 2022-05-18 2022-05-18 Outpatient [id number] 88m0gm-3 00:00:00 00:00:00 Visit 95cb-43eb 5cb-43eb-8 -0p77-g3a c49-y3bo0e g9co7xycx d8faac 2022-04-06 2022-04-06 Outpatient [id number]- [id number] 1a n897yg-4 00:00:00 00:00:00 Visit 6f16-028k g02-408n-3 -8yc4-261 [id number] Results Test Description Test Time Test Comments Results Result Comments Source COMPREHENSIVE METABOLIC PANEL 2022-11-23 06:04:13 Test Item Value Reference Range Interpretation Comme nts GLUCOSE (test code = 2217) 137 MG/DL 70-99 H BUN (test code = 2208) 27 MG/DL 8-23 H CREATININE (test code = 0.92 MG/DL 0.60-1.30 2213) eGFR (2020 CKD-EPI) (test 65 ML/MIN/1.73 >60 code = 08726) CALC BUN/CREAT (test code = 29 RATIO 6-28 H 2234) SODIUM (test code = 2231) 140 MEQ/L 133-146 POTASSIUM (test code = 2228) 4.4 MEQ/L 3.5-5.4 CHLORIDE (test code = 2215) 102 MEQ/L 95-107 CARBON DIOXIDE (test code = 25 MEQ/L 19-31 2205) CALCIUM (test code = 2209) 10.2 MG/DL 8.5-10.5 PROTEIN, TOTAL (test code = 7.0 G/DL 6.1-8.3 2228) ALBUMIN (test code = 2201) 4.8 G/DL 3.5-5.2 CALC GLOBULIN (test code = 2.2 G/DL 1.9-3.7 2239) CALC A/G RATIO (test code = 2.2 RATIO 1.0-2.6 2233) BILIRUBIN, TOTAL (test code 0.3 MG/DL See_Comment [Automated message] The = 2206) system which ge nerated this result transmit jhonatan reference range: <=1.2. T he reference range was not u sed to interpret this result as normal/abnormal . ALKALINE PHOSPHATASE (test 91 U/L 40-142 code = 2204) AST (test code = 2218) 14 U/L 9-40 ALT (test code = 2219) 12 U/L 5-40 TSH, THIRD [id number] 05:39:45 Test Item Value Reference Range Interpretation Comments TSH, THIRD 2.510 UIU/ML 0.400-4.[address] [facility] has im portant GENERATION (test pathology s taff code = 2821) changes effecti ve 10/19/2022. New pathology staff will provide uninter rupted, excellent patie nt care and clinical consultation. S ee URL: [email or web address]. UNLES S OTHERWISE INDIC ATED, ALL TESTING PER FORMED AT [facility] [employer], [facility]. [address] [place] [address] SAM LARA DIRECTOR: Jeane PEREZ AISHA NUMBER [id number] CAP ACCREDITATION N O. [id number] CBC W/AUTO DIFF WITH [id number] 02:39:45 Test Item Value Reference Range Interpretation Comments WBC (test code = 5.9 K/UL 3.5-11.0 1001) RBC (test code = 4.08 M/UL 3.80-5.40 1002) HEMOGLOBIN (test code 12.0 G/DL 11.5-15.5 = 1003) HEMATOCRIT (test code 35.9 % 34.0-45.0 = 1004) MCV (test code = 88.0 fL 80.0-99.0 1005) MCH (test code = 29.4 PG 25.0-33.0 1006) MCHC (test code = 33.4 G/DL 31.0-36.0 1007) RDW (test code = 13.7 % 11.5-15.0 1038) NEUTROPHILS (test 73.3 % code = 1008) LYMPHOCYTES (test 18.9 % code = 1010) MONOCYTES (test code 5.6 % = 1011) EOSINOPHILS (test 1.7 % code = 1012) BASOPHILS (test code 0.3 % = 1013) IMMATURE GRANULOCYTES 0.2 % (test code = 1036) NUCLEATED RBCS (test 0.0 /100 WBC'S See_Comment [Aut omated code = 1065) message] The sy stem which generated this result transmitted reference range : 0.0. The refere nce range was not u sed to interpret th is result as normal/abnormal . PLATELET COUNT (test 237 K/UL 130-400 code = 1015) ABSOLUTE NEUTROPHILS 4.29 K/UL 1.50-7.50 (test code = 1066) ABSOLUTE LYMPHOCYTES 1.11 K/UL 1.00-4.00 (test code = 1067) ABSOLUTE MONOCYTES 0.33 K/UL 0.20-1.00 (test code = 1068) ABSOLUTE EOSINOPHILS 0.10 K/UL 0.00-0.50 (test code = 1040) ABSOLUTE BASOPHILS 0.02 K/UL 0.00-0.20 (test code = 1069) ABS IMMATURE 0.01 K/UL 0.00-0.10 GRANULOCYTES (test code = 1020) ABS NUCLEATED RBCS 0.00 K/UL 0.00-0.11 (test code = 15891) HEMOGLOBIN [id number] 04:07:16 Test Item Value Reference Range Interpretation Comments HEMOGLOBIN A1c (test 6.2 % 4.2-5.6 H AMERIC AN DIABETES code = 69000) ASSOCIATION IDELINES FOR HGB A1C: PREDIABETES/INC REASED RISK . . . . . . . 5.7 -6.4% DIAGNOSIS OF DI ABETES . . . . . . . . . >=6 .5% WITH CONFIRMATION OR APPROPRIATE SYMPTOMS NOTE: ASSAY MAY BE AFFECTED BY HEMOGLOBINOPATH IES (SICKLE CELL ANEMIA, S- C DISEASE, OTHERS) OR MILIND FICIALLY LOWERED BY DECR EASED RED CELL SURVIVAL ( HEMOLYTIC ANEMIAS, BLOOD LOSS, ETC.). CONSIDER ALTERN ATE TESTING OR LABORATORY C ONSULTATION. LIPID [id number] 02:39:07 Test Item Value Reference Range Interpretation Comments CHOLESTEROL (test 199 MG/DL <200 code = 2210) TRIGLYCERIDES (test 120 MG/DL <150 code = 2232) HDL CHOLESTEROL (test 72 MG/DL >39 code = 2220) CALC LDL CHOL (test 105 MG/DL <100 H NOTE: C ALCULATED LDL code = 2237) IS BASED ON TASHA-BALLESTEROS METHOD WHICHINCLUDES ADJUSTABLE TRIGLYCERIDE:VL DL CHOLESTEROL RAT IO.THIS FACTOR VARIES B Y MEASURED TRIGLY CERIDE AND NON-HDLCHOL ESTEROL CONCENTRATIONS WITH INCREASED CALCU LATED LDL SEENIN HIGH ER TRIGLYCERIDE OR LOWER NON-HDL SPECIME NS. FOR MOREINFORMATION , SEE CLIENT ANNOUNCE MENT AT [email or web address] [email or web address] [email or web address] LDL/HDL 1.46 RATIO <3.[address] [facility] has important (test code = 2238) pathology staff changes effecti ve 10/19/2022. New pathology staff will provide uninter rupted, excellent patie nt care and clinical consultation. S ee URL: [email or web address]. UNLES S OTHERWISE INDIC ATED, ALL TESTING PER FORMED AT CLINICAL [facility] [employer], [facility]. [address] [place] [address] SAM LARA DIRECTOR: LUZMA LEYVA M.D. C AISHA NUMBER [id number] CAP ACCREDITATION N O. [id number] HEMOGLOBIN [id number] 19:53:47 Test Item Value Reference Range Interpretation Comments HEMOGLOBIN A1c (test 6.0 % 4.2-5.6 H UNLESS OTHERWISE code = 28186) INDICATED, ALL TESTING PERFORMED [facility] [employer] [address] [place] [address] SAM LARA DIRECTOR: Jeane QUIROSIA NUMBER [id number] CAP ACCREDITATION N O. [id number] HEMOGLOBIN [id number] 00:00:00 Test Item Value Reference Range Interpretation Comments HEMOGLOBIN A1c (test code = 55978) 6.0 % HEMOGLOBIN [id number] 00:00:00 Test Item Value Reference Range Interpretation Comments HEMOGLOBIN A1c (test code = 69865) 6.0 % HEMOGLOBIN [id number] 00:00:00 Test Item Value Reference Range Interpretation Comments HEMOGLOBIN A1c (test code = 23870) 6.0 % HEMOGLOBIN [id number] 00:00:00 Test Item Value Reference Range Interpretation Comments HEMOGLOBIN A1c (test code = 36457) 6.0 % HEMOGLOBIN [id number] 00:00:00 Test Item Value Reference Range Interpretation Comments HEMOGLOBIN A1c (test code = 90134) 6.0 % HEMOGLOBIN [id number] 00:00:00 Test Item Value Reference Range Interpretation Comments HEMOGLOBIN A1c (test code = 77205) 6.0 % VITAMIN [id number] 05:55:49 Test Item Value Reference Range Interpretation Comments VITAMIN B-12 (test 420 PG/ML 200-950 UNLESS O THERWISE code = 2840) INDICATED, ALL TESTING PERFORMED [facility] [employer]. [address] [place] [address] [facility] DIRECTOR: YING CHAVEZ M.D. [place] NUMBER [id number] CAP ACCREDITATION N O. [id number] 04:55:41 Test Item Value Reference Range Interpretation Comments RPR RESULT (test code = NON-REACTIVE NON-REACTIVE 3501) RPR TITER (test code = 3500) NOT INDIC. TITER NOT INDIC. [id number] 00:00:00 Test Item Value Reference Range Interpretation Comments RPR RESULT (test code = NON-REACTIVE 3501) RPR TITER (test code = 3500) NOT INDIC. TITER [id number] 00:00:00 Test Item Value Reference Range Interpretation Comments RPR RESULT (test code = NON-REACTIVE 3501) RPR TITER (test code = 3500) NOT INDIC. TITER [id number] 00:00:00 Test Item Value Reference Range Interpretation Comments RPR RESULT (test code = NON-REACTIVE 3501) RPR TITER (test code = 3500) NOT INDIC. TITER VITAMIN [id number] 00:00:00 Test Item Value Reference Range Interpretation Comments VITAMIN B-12 (test code = 2840) 420 PG/ML VITAMIN [id number] 00:00:00 Test Item Value Reference Range Interpretation Comments VITAMIN B-12 (test code = 2840) 420 PG/ML VITAMIN [id number] 00:00:00 Test Item Value Reference Range Interpretation Comments VITAMIN B-12 (test code = 2840) 420 PG/ML [id number] 00:00:00 Test Item Value Reference Range Interpretation Comments RPR RESULT (test code = NON-REACTIVE 3501) RPR TITER (test code = 3500) NOT INDIC. TITER [id number] 00:00:00 Test Item Value Reference Range Interpretation Comments RPR RESULT (test code = NON-REACTIVE 3501) RPR TITER (test code = 3500) NOT INDIC. TITER [id number] 00:00:00 Test Item Value Reference Range Interpretation Comments RPR RESULT (test code = NON-REACTIVE 3501) RPR TITER (test code = 3500) NOT INDIC. TITER VITAMIN [id number] 00:00:00 Test Item Value Reference Range Interpretation Comments VITAMIN B-12 (test code = 2840) 420 PG/ML VITAMIN [id number] 00:00:00 Test Item Value Reference Range Interpretation Comments VITAMIN B-12 (test code = 2840) 420 PG/ML VITAMIN [id number] 00:00:00 Test Item Value Reference Range Interpretation Comments VITAMIN B-12 (test code = 2840) 420 PG/ML HEMOGLOBIN [id number] 05:01:16 Test Item Value Reference Range Interpretation Comments HEMOGLOBIN A1c (test code = 63785) 6.2 % 4.2-5.6 H LIPID [id number] 04:11:53 Test Item Value Reference Range Interpretation Comments CHOLESTEROL (test 183 MG/DL <200 code = 2210) TRIGLYCERIDES (test 97 MG/DL <150 code = 2232) HDL CHOLESTEROL (test 67 MG/DL >39 code = 2220) CALC LDL CHOL (test 97 MG/DL <100 NOTE: C ALCULATED LDL code = 2237) IS BASED ON TASHA-BALLESTEROS METHOD WHICHINCLUDES ADJUSTABLE TRIGLYCERIDE:VL DL CHOLESTEROL RAT IO.THIS FACTOR VARIES B Y MEASURED TRIGLY CERIDE AND NON-HDLCHOL ESTEROL CONCENTRATIONS WITH INCREASED CALCU LATED LDL SEENIN HIGH ER TRIGLYCERIDE OR LOWER NON-HDL SPECIME NS. FOR MOREINFORMATION , SEE CLIENT ANNOUNCE MENT AT [email or web address] RISK RATIO LDL/HDL 1.45 RATIO <3.22 (test code = 2238) COMPREHENSIVE METABOLIC [id number] 04:11:53 Test Item Value Reference Range Interpretation Comments GLUCOSE (test code = 98 MG/DL 70-99 2216) BUN (test code = 27 MG/DL 8-23 H 2207) CREATININE (test 0.78 MG/DL 0.60-1.30 code = 2214) eGFR (2020 CKD-EPI) 80 ML/MIN/1.73 >60 (test code = 69376) CALC BUN/CREAT (test 35 RATIO 6-28 H code = 2235) SODIUM (test code = 141 MEQ/L 032-281 5941) POTASSIUM (test code 4.3 MEQ/L 3.5-5.4 = 2228) CHLORIDE (test code 101 MEQ/L 95-107 = 2215) CARBON DIOXIDE (test 24 MEQ/L 19-31 code = 2206) CALCIUM (test code = 10.0 MG/DL 8.5-10.5 220) PROTEIN, TOTAL (test 7.1 G/DL 6.1-8.3 code = 2229) ALBUMIN (test code = 4.7 G/DL 3.5-5.2 220) CALC GLOBULIN (test 2.4 G/DL 1.9-3.7 code = 2240) CALC A/G RATIO (test 2.0 RATIO 1.0-2.6 code = 2234) BILIRUBIN, TOTAL 0.4 MG/DL See_Comment [Automated message] (test code = 2207) The syste m which generated this result transmit jhonatan reference range : <=1.2. The refe rence range was not u sed to interpret th is result as normal/abnormal . ALKALINE PHOSPHATASE 81 U/L 40-142 (test code = 2204) AST (test code = 14 U/L 9-40 2217) ALT (test code = 11 U/L 5-40 2218) HEPATITIS PANEL, [id number] 04:00:14 Test Item Value Reference Range Interpretation Comments HEPATITIS A IgM (test NON-REACTIVE NON-REACTIVE code = 61794) HEPATITIS B CORE IgM NON-REACTIVE NON-REACTIVE (test code = 4644) HEPATITIS B SURF AG NON-REACTIVE NON-REACTIVE (test code = 2739) HEPATITIS C ANTIBODY NON-REACTIVE NON-REACTIVE (test code = 4675) INTERPRETATION (NOTE) Hepatitis A HEPATITIS A: (test serology shows no code = 2552) evidence of acu te hepatitis A. INTERPRETATION (NOTE) Hepatitis B HEPATITIS B: (test serology shows no code = 71997) evidence of ac priyanka hepatitis B and no indication of exposure to hepatitis B vir us in the previous si xto eight months. INTERPRETATION (NOTE) Hepatitis C HEPATITIS C: (test serology shows no code = 36071) evidence of ex posure to hepatitisC v irus at this time. I t can take up to 12 m onths after exposure tothe hepatitis C vir us for antibodies to become detectab le in the blood in ce rtain patients. UNLES S OTHERWISE INDIC ATED, ALL TESTING PERFORMED [facility] [place]. [address] [place] [address] [facility] DIRECTOR: YING CHAVEZ M.D. CLIA NUMBER [id number] CAP ACCREDITATI ON NO. CBC W/AUTO DIFF WITH [id number] 03:20:55 Test Item Value Reference Range Interpretation Comments WBC (test code = 4.4 K/UL 3.5-11.0 1001) RBC (test code = 3.87 M/UL 3.80-5.40 1002) HEMOGLOBIN (test code 11.5 G/DL 11.5-15.5 = 1003) HEMATOCRIT (test code 34.1 % 34.0-45.0 = 1004) MCV (test code = 88.1 fL 80.0-99.0 1005) MCH (test code = 29.7 PG 25.0-33.0 1006) MCHC (test code = 33.7 G/DL 31.0-36.0 1007) RDW (test code = 13.5 % 11.5-15.0 1038) NEUTROPHILS (test 60.0 % code = 1008) LYMPHOCYTES (test 28.0 % code = 1010) MONOCYTES (test code 8.3 % = 1011) EOSINOPHILS (test 3.0 % code = 1012) BASOPHILS (test code 0.5 % = 1013) IMMATURE GRANYLOCYTES 0.2 % (test code = 1036) NUCLEATED RBCS (test 0.0 /100 WBC'S See_Comment [Aut omated code = 1065) message] The sy stem which generated this result transmitted reference range : 0.0. The refere nce range was not u sed to interpret th is result as normal/abnormal . PLATELET COUNT (test 225 K/UL 130-400 code = 1015) ABSOLUTE NEUTROPHILS 2.62 K/UL 1.50-7.50 (test code = 1066) ABSOLUTE LYMPHOCYTES 1.22 K/UL 1.00-4.00 (test code = 1067) ABSOLUTE MONOCYTES 0.36 K/UL 0.20-1.00 (test code = 1068) ABSOLUTE EOSINOPHILS 0.13 K/UL 0.00-0.50 (test code = 1040) ABSOLUTE BASOPHILS 0.02 K/UL 0.00-0.20 (test code = 1069) ABS IMMATURE 0.01 K/UL 0.00-0.10 GRANULOCYTES (test code = 1020) ABS NUCLEATED RBCS 0.00 K/UL 0.00-0.11 (test code = 84625) CBC W/AUTO [id number] 00:00:00 Test Item Value Reference Range Interpretation Comments WBC (test code = 1001) 4.4 K/UL RBC (test code = 1002) 3.87 M/UL HEMOGLOBIN (test code = 1003) 11.5 G/DL HEMATOCRIT (test code = 1004) 34.1 % MCV (test code = 1005) 88.1 fL MCH (test code = 1006) 29.7 PG MCHC (test code = 1007) 33.7 G/DL RDW (test code = 1038) 13.5 % NEUTROPHILS (test code = 1008) 60.0 % LYMPHOCYTES (test code = 1010) 28.0 % MONOCYTES (test code = 1011) 8.3 % EOSINOPHILS (test code = 1012) 3.0 % BASOPHILS (test code = 1013) 0.5 % IMMATURE GRANYLOCYTES (test 0.2 % code = 1036) NUCLEATED RBCS (test code = 0.0 /100WBC'S 1065) PLATELET COUNT (test code = 225 K/UL 1015) ABSOLUTE NEUTROPHILS (test code 2.62 K/UL = 1066) ABSOLUTE LYMPHOCYTES (test code 1.22 K/UL = 1067) ABSOLUTE MONOCYTES (test code = 0.36 K/UL 1068) ABSOLUTE EOSINOPHILS (test code 0.13 K/UL = 1040) ABSOLUTE BASOPHILS (test code = 0.02 K/UL 1069) ABS IMMATURE GRANULOCYTES (test 0.01 K/UL code = 1020) ABS NUCLEATED RBCS (test code = 0.00 K/UL 15785) CBC W/AUTO [id number] 00:00:00 Test Item Value Reference Range Interpretation Comments WBC (test code = 1001) 4.4 K/UL RBC (test code = 1002) 3.87 M/UL HEMOGLOBIN (test code = 1003) 11.5 G/DL HEMATOCRIT (test code = 1004) 34.1 % MCV (test code = 1005) 88.1 fL MCH (test code = 1006) 29.7 PG MCHC (test code = 1007) 33.7 G/DL RDW (test code = 1038) 13.5 % NEUTROPHILS (test code = 1008) 60.0 % LYMPHOCYTES (test code = 1010) 28.0 % MONOCYTES (test code = 1011) 8.3 % EOSINOPHILS (test code = 1012) 3.0 % BASOPHILS (test code = 1013) 0.5 % IMMATURE GRANYLOCYTES (test 0.2 % code = 1036) NUCLEATED RBCS (test code = 0.0 /100WBC'S 1065) PLATELET COUNT (test code = 225 K/UL 1015) ABSOLUTE NEUTROPHILS (test code 2.62 K/UL = 1066) ABSOLUTE LYMPHOCYTES (test code 1.22 K/UL = 1067) ABSOLUTE MONOCYTES (test code = 0.36 K/UL 1068) ABSOLUTE EOSINOPHILS (test code 0.13 K/UL = 1040) ABSOLUTE BASOPHILS (test code = 0.02 K/UL 1069) ABS IMMATURE GRANULOCYTES (test 0.01 K/UL code = 1020) ABS NUCLEATED RBCS (test code = 0.00 K/UL 12733) CBC W/AUTO [id number] 00:00:00 Test Item Value Reference Range Interpretation Comments WBC (test code = 1001) 4.4 K/UL RBC (test code = 1002) 3.87 M/UL HEMOGLOBIN (test code = 1003) 11.5 G/DL HEMATOCRIT (test code = 1004) 34.1 % MCV (test code = 1005) 88.1 fL MCH (test code = 1006) 29.7 PG MCHC (test code = 1007) 33.7 G/DL RDW (test code = 1038) 13.5 % NEUTROPHILS (test code = 1008) 60.0 % LYMPHOCYTES (test code = 1010) 28.0 % MONOCYTES (test code = 1011) 8.3 % EOSINOPHILS (test code = 1012) 3.0 % BASOPHILS (test code = 1013) 0.5 % IMMATURE GRANYLOCYTES (test 0.2 % code = 1036) NUCLEATED RBCS (test code = 0.0 /100WBC'S 1065) PLATELET COUNT (test code = 225 K/UL 1015) ABSOLUTE NEUTROPHILS (test code 2.62 K/UL = 1066) ABSOLUTE LYMPHOCYTES (test code 1.22 K/UL = 1067) ABSOLUTE MONOCYTES (test code = 0.36 K/UL 1068) ABSOLUTE EOSINOPHILS (test code 0.13 K/UL = 1040) ABSOLUTE BASOPHILS (test code = 0.02 K/UL 1069) ABS IMMATURE GRANULOCYTES (test 0.01 K/UL code = 1020) ABS NUCLEATED RBCS (test code = 0.00 K/UL 72400) HEMOGLOBIN [id number] 00:00:00 Test Item Value Reference Range Interpretation Comments HEMOGLOBIN A1c (test code = 30401) 6.2 % HEMOGLOBIN [id number] 00:00:00 Test Item Value Reference Range Interpretation Comments HEMOGLOBIN A1c (test code = 86008) 6.2 % HEMOGLOBIN [id number] 00:00:00 Test Item Value Reference Range Interpretation Comments HEMOGLOBIN A1c (test code = 84518) 6.2 % LIPID [id number] 00:00:00 Test Item Value Reference Range Interpretation Comments CHOLESTEROL (test code = 2210) 183 MG/DL TRIGLYCERIDES (test code = 2232) 97 MG/DL HDL CHOLESTEROL (test code = 2220) 67 MG/DL CALC LDL CHOL (test code = 2237) 97 MG/DL RISK RATIO LDL/HDL (test code = 1.45 RATIO 2238) LIPID [id number] 00:00:00 Test Item Value Reference Range Interpretation Comments CHOLESTEROL (test code = 2210) 183 MG/DL TRIGLYCERIDES (test code = 2232) 97 MG/DL HDL CHOLESTEROL (test code = 2220) 67 MG/DL CALC LDL CHOL (test code = 2237) 97 MG/DL RISK RATIO LDL/HDL (test code = 1.45 RATIO 2238) COMPREHENSIVE METABOLIC [id number] 00:00:00 Test Item Value Reference Range Interpretation Comments GLUCOSE (test code = 2217) 98 MG/DL BUN (test code = 2208) 27 MG/DL CREATININE (test code = 2214) 0.78 MG/DL eGFR (2020 CKD-EPI) (test code 80 ML/MIN/1.73 = 81994) CALC BUN/CREAT (test code = 35 RATIO 2235) SODIUM (test code = 2231) 141 MEQ/L POTASSIUM (test code = 2228) 4.3 MEQ/L CHLORIDE (test code = 2215) 101 MEQ/L CARBON DIOXIDE (test code = 24 MEQ/L 2206) CALCIUM (test code = 2209) 10.0 MG/DL PROTEIN, TOTAL (test code = 7.1 G/DL 2229) ALBUMIN (test code = 2201) 4.7 G/DL CALC GLOBULIN (test code = 2.4 G/DL 2240) CALC A/G RATIO (test code = 2.0 RATIO 2234) BILIRUBIN, TOTAL (test code = 0.4 MG/DL 2207) ALKALINE PHOSPHATASE (test 81 U/L code = 2204) AST (test code = 2218) 14 U/L ALT (test code = 2219) 11 U/L COMPREHENSIVE METABOLIC [id number] 00:00:00 Test Item Value Reference Range Interpretation Comments GLUCOSE (test code = 2217) 98 MG/DL BUN (test code = 2208) 27 MG/DL CREATININE (test code = 2214) 0.78 MG/DL eGFR (2020 CKD-EPI) (test code 80 ML/MIN/1.73 = 88383) CALC BUN/CREAT (test code = 35 RATIO 2235) SODIUM (test code = 2231) 141 MEQ/L POTASSIUM (test code = 2228) 4.3 MEQ/L CHLORIDE (test code = 2215) 101 MEQ/L CARBON DIOXIDE (test code = 24 MEQ/L 6) CALCIUM (test code = 2209) 10.0 MG/DL PROTEIN, TOTAL (test code = 7.1 G/DL 2229) ALBUMIN (test code = 2201) 4.7 G/DL CALC GLOBULIN (test code = 2.4 G/DL 2240) CALC A/G RATIO (test code = 2.0 RATIO 2234) BILIRUBIN, TOTAL (test code = 0.4 MG/DL 2207) ALKALINE PHOSPHATASE (test 81 U/L code = 2204) AST (test code = 2218) 14 U/L ALT (test code = 2219) 11 U/L ACUTE HEPATITIS [id number] 00:00:00 Test Item Value Reference Range Interpretation Comments HEPATITIS A IgM (test code = NON-REACTIVE 49646) HEPATITIS B CORE IgM (test code NON-REACTIVE = 2015) HEPATITIS B SURF AG (test code = NON-REACTIVE 8167) HEPATITIS C ANTIBODY (test code NON-REACTIVE = 4675) INTERPRETATION HEPATITIS A: (NOTE) (test code = 2552) INTERPRETATION HEPATITIS B: (NOTE) (test code = 11863) INTERPRETATION HEPATITIS C: (NOTE) (test code = 11413) ACUTE HEPATITIS [id number] 00:00:00 Test Item Value Reference Range Interpretation Comments HEPATITIS A IgM (test code = NON-REACTIVE 76312) HEPATITIS B CORE IgM (test code NON-REACTIVE = 4644) HEPATITIS B SURF AG (test code = NON-REACTIVE 2739) HEPATITIS C ANTIBODY (test code NON-REACTIVE = 4675) INTERPRETATION HEPATITIS A: (NOTE) (test code = 2552) INTERPRETATION HEPATITIS B: (NOTE) (test code = 62297) INTERPRETATION HEPATITIS C: (NOTE) (test code = 32658) CBC W/AUTO [id number] 00:00:00 Test Item Value Reference Range Interpretation Comments WBC (test code = 1001) 4.4 K/UL RBC (test code = 1002) 3.87 M/UL HEMOGLOBIN (test code = 1003) 11.5 G/DL HEMATOCRIT (test code = 1004) 34.1 % MCV (test code = 1005) 88.1 fL MCH (test code = 1006) 29.7 PG MCHC (test code = 1007) 33.7 G/DL RDW (test code = 1038) 13.5 % NEUTROPHILS (test code = 1008) 60.0 % LYMPHOCYTES (test code = 1010) 28.0 % MONOCYTES (test code = 1011) 8.3 % EOSINOPHILS (test code = 1012) 3.0 % BASOPHILS (test code = 1013) 0.5 % IMMATURE GRANYLOCYTES (test 0.2 % code = 1036) NUCLEATED RBCS (test code = 0.0 /100WBC'S 1065) PLATELET COUNT (test code = 225 K/UL 1015) ABSOLUTE NEUTROPHILS (test code 2.62 K/UL = 1066) ABSOLUTE LYMPHOCYTES (test code 1.22 K/UL = 1067) ABSOLUTE MONOCYTES (test code = 0.36 K/UL 1068) ABSOLUTE EOSINOPHILS (test code 0.13 K/UL = 1040) ABSOLUTE BASOPHILS (test code = 0.02 K/UL 1069) ABS IMMATURE GRANULOCYTES (test 0.01 K/UL code = 1020) ABS NUCLEATED RBCS (test code = 0.00 K/UL 22150) CBC W/AUTO [id number] 00:00:00 Test Item Value Reference Range Interpretation Comments WBC (test code = 1001) 4.4 K/UL RBC (test code = 1002) 3.87 M/UL HEMOGLOBIN (test code = 1003) 11.5 G/DL HEMATOCRIT (test code = 1004) 34.1 % MCV (test code = 1005) 88.1 fL MCH (test code = 1006) 29.7 PG MCHC (test code = 1007) 33.7 G/DL RDW (test code = 1038) 13.5 % NEUTROPHILS (test code = 1008) 60.0 % LYMPHOCYTES (test code = 1010) 28.0 % MONOCYTES (test code = 1011) 8.3 % EOSINOPHILS (test code = 1012) 3.0 % BASOPHILS (test code = 1013) 0.5 % IMMATURE GRANYLOCYTES (test 0.2 % code = 1036) NUCLEATED RBCS (test code = 0.0 /100WBC'S 1065) PLATELET COUNT (test code = 225 K/UL 1015) ABSOLUTE NEUTROPHILS (test code 2.62 K/UL = 1066) ABSOLUTE LYMPHOCYTES (test code 1.22 K/UL = 1067) ABSOLUTE MONOCYTES (test code = 0.36 K/UL 1068) ABSOLUTE EOSINOPHILS (test code 0.13 K/UL = 1040) ABSOLUTE BASOPHILS (test code = 0.02 K/UL 1069) ABS IMMATURE GRANULOCYTES (test 0.01 K/UL code = 1020) ABS NUCLEATED RBCS (test code = 0.00 K/UL 71250) CBC W/AUTO [id number] 00:00:00 Test Item Value Reference Range Interpretation Comments WBC (test code = 1001) 4.4 K/UL RBC (test code = 1002) 3.87 M/UL HEMOGLOBIN (test code = 1003) 11.5 G/DL HEMATOCRIT (test code = 1004) 34.1 % MCV (test code = 1005) 88.1 fL MCH (test code = 1006) 29.7 PG MCHC (test code = 1007) 33.7 G/DL RDW (test code = 1038) 13.5 % NEUTROPHILS (test code = 1008) 60.0 % LYMPHOCYTES (test code = 1010) 28.0 % MONOCYTES (test code = 1011) 8.3 % EOSINOPHILS (test code = 1012) 3.0 % BASOPHILS (test code = 1013) 0.5 % IMMATURE GRANYLOCYTES (test 0.2 % code = 1036) NUCLEATED RBCS (test code = 0.0 /100WBC'S 1065) PLATELET COUNT (test code = 225 K/UL 1015) ABSOLUTE NEUTROPHILS (test code 2.62 K/UL = 1066) ABSOLUTE LYMPHOCYTES (test code 1.22 K/UL = 1067) ABSOLUTE MONOCYTES (test code = 0.36 K/UL 1068) ABSOLUTE EOSINOPHILS (test code 0.13 K/UL = 1040) ABSOLUTE BASOPHILS (test code = 0.02 K/UL 1069) ABS IMMATURE GRANULOCYTES (test 0.01 K/UL code = 1020) ABS NUCLEATED RBCS (test code = 0.00 K/UL 01213) HEMOGLOBIN [id number] 00:00:00 Test Item Value Reference Range Interpretation Comments HEMOGLOBIN A1c (test code = 53899) 6.2 % HEMOGLOBIN [id number] 00:00:00 Test Item Value Reference Range Interpretation Comments HEMOGLOBIN A1c (test code = 58686) 6.2 % HEMOGLOBIN [id number] 00:00:00 Test Item Value Reference Range Interpretation Comments HEMOGLOBIN A1c (test code = 83982) 6.2 % LIPID [id number] 00:00:00 Test Item Value Reference Range Interpretation Comments CHOLESTEROL (test code = 2210) 183 MG/DL TRIGLYCERIDES (test code = 2232) 97 MG/DL HDL CHOLESTEROL (test code = 2220) 67 MG/DL CALC LDL CHOL (test code = 2237) 97 MG/DL RISK RATIO LDL/HDL (test code = 1.45 RATIO 2238) LIPID [id number] 00:00:00 Test Item Value Reference Range Interpretation Comments CHOLESTEROL (test code = 2210) 183 MG/DL TRIGLYCERIDES (test code = 2232) 97 MG/DL HDL CHOLESTEROL (test code = 2220) 67 MG/DL CALC LDL CHOL (test code = 2237) 97 MG/DL RISK RATIO LDL/HDL (test code = 1.45 RATIO 2238) COMPREHENSIVE METABOLIC [id number] 00:00:00 Test Item Value Reference Range Interpretation Comments GLUCOSE (test code = 2217) 98 MG/DL BUN (test code = 2208) 27 MG/DL CREATININE (test code = 2214) 0.78 MG/DL eGFR (2020 CKD-EPI) (test code 80 ML/MIN/1.73 = 23696) CALC BUN/CREAT (test code = 35 RATIO 2235) SODIUM (test code = 2231) 141 MEQ/L POTASSIUM (test code = 2228) 4.3 MEQ/L CHLORIDE (test code = 2215) 101 MEQ/L CARBON DIOXIDE (test code = 24 MEQ/L 2205) CALCIUM (test code = 2209) 10.0 MG/DL PROTEIN, TOTAL (test code = 7.1 G/DL 2228) ALBUMIN (test code = 2201) 4.7 G/DL CALC GLOBULIN (test code = 2.4 G/DL 2240) CALC A/G RATIO (test code = 2.0 RATIO 2234) BILIRUBIN, TOTAL (test code = 0.4 MG/DL 2206) ALKALINE PHOSPHATASE (test 81 U/L code = 2204) AST (test code = 2218) 14 U/L ALT (test code = 2219) 11 U/L COMPREHENSIVE METABOLIC [id number] 00:00:00 Test Item Value Reference Range Interpretation Comments GLUCOSE (test code = 2217) 98 MG/DL BUN (test code = 2208) 27 MG/DL CREATININE (test code = 2214) 0.78 MG/DL eGFR (2020 CKD-EPI) (test code 80 ML/MIN/1.73 = 66576) CALC BUN/CREAT (test code = 35 RATIO 2235) SODIUM (test code = 2231) 141 MEQ/L POTASSIUM (test code = 2228) 4.3 MEQ/L CHLORIDE (test code = 2215) 101 MEQ/L CARBON DIOXIDE (test code = 24 MEQ/L 2205) CALCIUM (test code = 2209) 10.0 MG/DL PROTEIN, TOTAL (test code = 7.1 G/DL 2228) ALBUMIN (test code = 2201) 4.7 G/DL CALC GLOBULIN (test code = 2.4 G/DL 2240) CALC A/G RATIO (test code = 2.0 RATIO 2234) BILIRUBIN, TOTAL (test code = 0.4 MG/DL 2206) ALKALINE PHOSPHATASE (test 81 U/L code = 2204) AST (test code = 2218) 14 U/L ALT (test code = 2219) 11 U/L ACUTE HEPATITIS [id number] 00:00:00 Test Item Value Reference Range Interpretation Comments HEPATITIS A IgM (test code = NON-REACTIVE 22481) HEPATITIS B CORE IgM (test code NON-REACTIVE = 4644) HEPATITIS B SURF AG (test code = NON-REACTIVE 2739) HEPATITIS C ANTIBODY (test code NON-REACTIVE = 4675) INTERPRETATION HEPATITIS A: (NOTE) (test code = 2552) INTERPRETATION HEPATITIS B: (NOTE) (test code = 73109) INTERPRETATION HEPATITIS C: (NOTE) (test code = 87561) ACUTE HEPATITIS [id number] 00:00:00 Test Item Value Reference Range Interpretation Comments HEPATITIS A IgM (test code = NON-REACTIVE 50559) HEPATITIS B CORE IgM (test code NON-REACTIVE = 4644) HEPATITIS B SURF AG (test code = NON-REACTIVE 2739) HEPATITIS C ANTIBODY (test code NON-REACTIVE = 4675) INTERPRETATION HEPATITIS A: (NOTE) (test code = 2552) INTERPRETATION HEPATITIS B: (NOTE) (test code = 86231) INTERPRETATION HEPATITIS C: (NOTE) (test code = 50393) CBC W/AUTO [id number] 00:00:00 Test Item Value Reference Range Interpretation Comments WBC (test code = 1001) 4.4 K/UL RBC (test code = 1002) 3.76 M/UL HEMOGLOBIN (test code = 1003) 10.7 G/DL HEMATOCRIT (test code = 1004) 32.7 % MCV (test code = 1005) 87.0 fL MCH (test code = 1006) 28.5 PG MCHC (test code = 1007) 32.7 G/DL RDW (test code = 1038) 13.6 % NEUTROPHILS (test code = 1008) 69.3 % LYMPHOCYTES (test code = 1010) 20.5 % MONOCYTES (test code = 1011) 6.8 % EOSINOPHILS (test code = 1012) 3.2 % BASOPHILS (test code = 1013) 0.2 % IMMATURE GRANULOCYTES (test 0.0 % code = 1036) NUCLEATED RBCS (test code = 0.0 /100WBC'S 1065) PLATELET COUNT (test code = 225 K/UL 1015) ABSOLUTE NEUTROPHILS (test code 3.05 K/UL = 1066) ABSOLUTE LYMPHOCYTES (test code 0.90 K/UL = 1067) ABSOLUTE MONOCYTES (test code = 0.30 K/UL 1068) ABSOLUTE EOSINOPHILS (test code 0.14 K/UL = 1040) ABSOLUTE BASOPHILS (test code = 0.01 K/UL 1069) ABS IMMATURE GRANULOCYTES (test 0.00 K/UL code = 1020) ABS NUCLEATED RBCS (test code = 0.00 K/UL 55818) CBC W/AUTO [id number] 00:00:00 Test Item Value Reference Range Interpretation Comments WBC (test code = 1001) 4.4 K/UL RBC (test code = 1002) 3.76 M/UL HEMOGLOBIN (test code = 1003) 10.7 G/DL HEMATOCRIT (test code = 1004) 32.7 % MCV (test code = 1005) 87.0 fL MCH (test code = 1006) 28.5 PG MCHC (test code = 1007) 32.7 G/DL RDW (test code = 1038) 13.6 % NEUTROPHILS (test code = 1008) 69.3 % LYMPHOCYTES (test code = 1010) 20.5 % MONOCYTES (test code = 1011) 6.8 % EOSINOPHILS (test code = 1012) 3.2 % BASOPHILS (test code = 1013) 0.2 % IMMATURE GRANULOCYTES (test 0.0 % code = 1036) NUCLEATED RBCS (test code = 0.0 /100WBC'S 1065) PLATELET COUNT (test code = 225 K/UL 1015) ABSOLUTE NEUTROPHILS (test code 3.05 K/UL = 1066) ABSOLUTE LYMPHOCYTES (test code 0.90 K/UL = 1067) ABSOLUTE MONOCYTES (test code = 0.30 K/UL 1068) ABSOLUTE EOSINOPHILS (test code 0.14 K/UL = 1040) ABSOLUTE BASOPHILS (test code = 0.01 K/UL 1069) ABS IMMATURE GRANULOCYTES (test 0.00 K/UL code = 1020) ABS NUCLEATED RBCS (test code = 0.00 K/UL 96935) HEMOGLOBIN [id number] 00:00:00 Test Item Value Reference Range Interpretation Comments HEMOGLOBIN A1c (test code = 65667) 6.0 % HEMOGLOBIN [id number] 00:00:00 Test Item Value Reference Range Interpretation Comments HEMOGLOBIN A1c (test code = 99138) 6.0 % HEMOGLOBIN [id number] 00:00:00 Test Item Value Reference Range Interpretation Comments HEMOGLOBIN A1c (test code = 14022) 6.0 % LIPID [id number] 00:00:00 Test Item Value Reference Range Interpretation Comments CHOLESTEROL (test code = 2210) 159 MG/DL TRIGLYCERIDES (test code = 2232) 112 MG/DL HDL CHOLESTEROL (test code = 2220) 59 MG/DL CALC LDL CHOL (test code = 2237) 79 MG/DL RISK RATIO LDL/HDL (test code = 1.34 RATIO 2238) LIPID [id number] 00:00:00 Test Item Value Reference Range Interpretation Comments CHOLESTEROL (test code = 2210) 159 MG/DL TRIGLYCERIDES (test code = 2232) 112 MG/DL HDL CHOLESTEROL (test code = 2220) 59 MG/DL CALC LDL CHOL (test code = 2237) 79 MG/DL RISK RATIO LDL/HDL (test code = 1.34 RATIO 2238) COMPREHENSIVE METABOLIC [id number] 00:00:00 Test Item Value Reference Range Interpretation Comments GLUCOSE (test code = 2217) 117 MG/DL BUN (test code = 2208) 19 MG/DL CREATININE (test code = 2214) 0.63 MG/DL eGFR AMER. (test code 102 ML/MIN/1.73 = 91414) eGFR NON- AMER. (test 88 ML/MIN/1.73 code = 98132) CALC BUN/CREAT (test code = 30 RATIO 2235) SODIUM (test code = 2231) 144 MEQ/L POTASSIUM (test code = 2228) 4.4 MEQ/L CHLORIDE (test code = 2215) 108 MEQ/L CARBON DIOXIDE (test code = 24 MEQ/L 2205) CALCIUM (test code = 2209) 9.2 MG/DL PROTEIN, TOTAL (test code = 6.4 G/DL 2228) ALBUMIN (test code = 2201) 4.2 G/DL CALC GLOBULIN (test code = 2.2 G/DL 0) CALC A/G RATIO (test code = 1.9 RATIO 2234) BILIRUBIN, TOTAL (test code = 0.3 MG/DL 2206) ALKALINE PHOSPHATASE (test 72 U/L code = 2204) AST (test code = 2218) 13 U/L ALT (test code = 2219) 11 U/L COMPREHENSIVE METABOLIC [id number] 00:00:00 Test Item Value Reference Range Interpretation Comments GLUCOSE (test code = 2217) 117 MG/DL BUN (test code = 2208) 19 MG/DL CREATININE (test code = 2214) 0.63 MG/DL eGFR AMER. (test code 102 ML/MIN/1.73 = 46818) eGFR NON- AMER. (test 88 ML/MIN/1.73 code = 06069) CALC BUN/CREAT (test code = 30 RATIO 2235) SODIUM (test code = 2231) 144 MEQ/L POTASSIUM (test code = 2228) 4.4 MEQ/L CHLORIDE (test code = 2215) 108 MEQ/L CARBON DIOXIDE (test code = 24 MEQ/L 2205) CALCIUM (test code = 2209) 9.2 MG/DL PROTEIN, TOTAL (test code = 6.4 G/DL 2228) ALBUMIN (test code = 220) 4.2 G/DL CALC GLOBULIN (test code = 2.2 G/DL 2239) CALC A/G RATIO (test code = 1.9 RATIO 2233) BILIRUBIN, TOTAL (test code = 0.3 MG/DL 2206) ALKALINE PHOSPHATASE (test 72 U/L code = 2204) AST (test code = 2218) 13 U/L ALT (test code = 2219) 11 U/L MICROALBUMIN/CREATININE, RANDOM AND [id number] 00:00:00 Test Item Value Reference Range Interpretation Comments CREATININE, URINE, CONC. (test 158.6 MG/DL code = 2072) ALBUMIN, URINE, RANDOM (test code 0.8 MG/DL = 15484) CALC ALBUMIN/CREAT, RND (test 5 MG/G code = 64679) MICROALBUMIN/CREATININE, RANDOM AND [id number] 00:00:00 Test Item Value Reference Range Interpretation Comments CREATININE, URINE, CONC. (test 158.6 MG/DL code = 2072) ALBUMIN, URINE, RANDOM (test code 0.8 MG/DL = 34088) CALC ALBUMIN/CREAT, RND (test 5 MG/G code = 09906) CBC W/AUTO [id number] 00:00:00 Test Item Value Reference Range Interpretation Comments WBC (test code = 1001) 4.4 K/UL RBC (test code = 1002) 3.76 M/UL HEMOGLOBIN (test code = 1003) 10.7 G/DL HEMATOCRIT (test code = 1004) 32.7 % MCV (test code = 1005) 87.0 fL MCH (test code = 1006) 28.5 PG MCHC (test code = 1007) 32.7 G/DL RDW (test code = 1038) 13.6 % NEUTROPHILS (test code = 1008) 69.3 % LYMPHOCYTES (test code = 1010) 20.5 % MONOCYTES (test code = 1011) 6.8 % EOSINOPHILS (test code = 1012) 3.2 % BASOPHILS (test code = 1013) 0.2 % IMMATURE GRANULOCYTES (test 0.0 % code = 1036) NUCLEATED RBCS (test code = 0.0 /100WBC'S 1065) PLATELET COUNT (test code = 225 K/UL 1015) ABSOLUTE NEUTROPHILS (test code 3.05 K/UL = 1066) ABSOLUTE LYMPHOCYTES (test code 0.90 K/UL = 1067) ABSOLUTE MONOCYTES (test code = 0.30 K/UL 1068) ABSOLUTE EOSINOPHILS (test code 0.14 K/UL = 1040) ABSOLUTE BASOPHILS (test code = 0.01 K/UL 1069) ABS IMMATURE GRANULOCYTES (test 0.00 K/UL code = 1020) ABS NUCLEATED RBCS (test code = 0.00 K/UL 19202) CBC W/AUTO [id number] 00:00:00 Test Item Value Reference Range Interpretation Comments WBC (test code = 1001) 4.4 K/UL RBC (test code = 1002) 3.76 M/UL HEMOGLOBIN (test code = 1003) 10.7 G/DL HEMATOCRIT (test code = 1004) 32.7 % MCV (test code = 1005) 87.0 fL MCH (test code = 1006) 28.5 PG MCHC (test code = 1007) 32.7 G/DL RDW (test code = 1038) 13.6 % NEUTROPHILS (test code = 1008) 69.3 % LYMPHOCYTES (test code = 1010) 20.5 % MONOCYTES (test code = 1011) 6.8 % EOSINOPHILS (test code = 1012) 3.2 % BASOPHILS (test code = 1013) 0.2 % IMMATURE GRANULOCYTES (test 0.0 % code = 1036) NUCLEATED RBCS (test code = 0.0 /100WBC'S 1065) PLATELET COUNT (test code = 225 K/UL 1015) ABSOLUTE NEUTROPHILS (test code 3.05 K/UL = 1066) ABSOLUTE LYMPHOCYTES (test code 0.90 K/UL = 1067) ABSOLUTE MONOCYTES (test code = 0.30 K/UL 1068) ABSOLUTE EOSINOPHILS (test code 0.14 K/UL = 1040) ABSOLUTE BASOPHILS (test code = 0.01 K/UL 1069) ABS IMMATURE GRANULOCYTES (test 0.00 K/UL code = 1020) ABS NUCLEATED RBCS (test code = 0.00 K/UL 48794) CBC W/AUTO [id number] 00:00:00 Test Item Value Reference Range Interpretation Comments WBC (test code = 1001) 4.4 K/UL RBC (test code = 1002) 3.76 M/UL HEMOGLOBIN (test code = 1003) 10.7 G/DL HEMATOCRIT (test code = 1004) 32.7 % MCV (test code = 1005) 87.0 fL MCH (test code = 1006) 28.5 PG MCHC (test code = 1007) 32.7 G/DL RDW (test code = 1038) 13.6 % NEUTROPHILS (test code = 1008) 69.3 % LYMPHOCYTES (test code = 1010) 20.5 % MONOCYTES (test code = 1011) 6.8 % EOSINOPHILS (test code = 1012) 3.2 % BASOPHILS (test code = 1013) 0.2 % IMMATURE GRANULOCYTES (test 0.0 % code = 1036) NUCLEATED RBCS (test code = 0.0 /100WBC'S 1065) PLATELET COUNT (test code = 225 K/UL 1015) ABSOLUTE NEUTROPHILS (test code 3.05 K/UL = 1066) ABSOLUTE LYMPHOCYTES (test code 0.90 K/UL = 1067) ABSOLUTE MONOCYTES (test code = 0.30 K/UL 1068) ABSOLUTE EOSINOPHILS (test code 0.14 K/UL = 1040) ABSOLUTE BASOPHILS (test code = 0.01 K/UL 1069) ABS IMMATURE GRANULOCYTES (test 0.00 K/UL code = 1020) ABS NUCLEATED RBCS (test code = 0.00 K/UL 51971) HEMOGLOBIN [id number] 00:00:00 Test Item Value Reference Range Interpretation Comments HEMOGLOBIN A1c (test code = 76742) 6.0 % HEMOGLOBIN [id number] 00:00:00 Test Item Value Reference Range Interpretation Comments HEMOGLOBIN A1c (test code = 92085) 6.0 % HEMOGLOBIN [id number] 00:00:00 Test Item Value Reference Range Interpretation Comments HEMOGLOBIN A1c (test code = 98556) 6.0 % LIPID [id number] 00:00:00 Test Item Value Reference Range Interpretation Comments CHOLESTEROL (test code = 2210) 159 MG/DL TRIGLYCERIDES (test code = 2232) 112 MG/DL HDL CHOLESTEROL (test code = 2220) 59 MG/DL CALC LDL CHOL (test code = 2237) 79 MG/DL RISK RATIO LDL/HDL (test code = 1.34 RATIO 2238) LIPID [id number] 00:00:00 Test Item Value Reference Range Interpretation Comments CHOLESTEROL (test code = 2210) 159 MG/DL TRIGLYCERIDES (test code = 2232) 112 MG/DL HDL CHOLESTEROL (test code = 2220) 59 MG/DL CALC LDL CHOL (test code = 2237) 79 MG/DL RISK RATIO LDL/HDL (test code = 1.34 RATIO 2238) COMPREHENSIVE METABOLIC [id number] 00:00:00 Test Item Value Reference Range Interpretation Comments GLUCOSE (test code = 2217) 117 MG/DL BUN (test code = 2208) 19 MG/DL CREATININE (test code = 2214) 0.63 MG/DL eGFR AMER. (test code 102 ML/MIN/1.73 = 91122) eGFR NON- AMER. (test 88 ML/MIN/1.73 code = 55769) CALC BUN/CREAT (test code = 30 RATIO 2235) SODIUM (test code = 2231) 144 MEQ/L POTASSIUM (test code = 2228) 4.4 MEQ/L CHLORIDE (test code = 2215) 108 MEQ/L CARBON DIOXIDE (test code = 24 MEQ/L 2205) CALCIUM (test code = 2209) 9.2 MG/DL PROTEIN, TOTAL (test code = 6.4 G/DL 2228) ALBUMIN (test code = 2201) 4.2 G/DL CALC GLOBULIN (test code = 2.2 G/DL 0) CALC A/G RATIO (test code = 1.9 RATIO 2234) BILIRUBIN, TOTAL (test code = 0.3 MG/DL 2206) ALKALINE PHOSPHATASE (test 72 U/L code = 2204) AST (test code = 2218) 13 U/L ALT (test code = 2219) 11 U/L COMPREHENSIVE METABOLIC [id number] 00:00:00 Test Item Value Reference Range Interpretation Comments GLUCOSE (test code = 2217) 117 MG/DL BUN (test code = 2208) 19 MG/DL CREATININE (test code = 2214) 0.63 MG/DL eGFR AMER. (test code 102 ML/MIN/1.73 = 32389) eGFR NON- AMER. (test 88 ML/MIN/1.73 code = 81237) CALC BUN/CREAT (test code = 30 RATIO 2235) SODIUM (test code = 2231) 144 MEQ/L POTASSIUM (test code = 2228) 4.4 MEQ/L CHLORIDE (test code = 2215) 108 MEQ/L CARBON DIOXIDE (test code = 24 MEQ/L 2206) CALCIUM (test code = 2209) 9.2 MG/DL PROTEIN, TOTAL (test code = 6.4 G/DL 2229) ALBUMIN (test code = 2201) 4.2 G/DL CALC GLOBULIN (test code = 2.2 G/DL 2240) CALC A/G RATIO (test code = 1.9 RATIO 2234) BILIRUBIN, TOTAL (test code = 0.3 MG/DL 220) ALKALINE PHOSPHATASE (test 72 U/L code = 2204) AST (test code = 2218) 13 U/L ALT (test code = 2219) 11 U/L MICROALBUMIN/CREATININE, RANDOM AND [id number] 00:00:00 Test Item Value Reference Range Interpretation Comments CREATININE, URINE, CONC. (test 158.6 MG/DL code = 2072) ALBUMIN, URINE, RANDOM (test code 0.8 MG/DL = 88879) CALC ALBUMIN/CREAT, RND (test 5 MG/G code = 67052) MICROALBUMIN/CREATININE, RANDOM AND [id number] 00:00:00 Test Item Value Reference Range Interpretation Comments CREATININE, URINE, CONC. (test 158.6 MG/DL code = 2072) ALBUMIN, URINE, RANDOM (test code 0.8 MG/DL = 91296) CALC ALBUMIN/CREAT, RND (test 5 MG/G code = 37958) CBC W/AUTO [id number] 00:00:00 Test Item Value Reference Range Interpretation Comments WBC (test code = 1001) 4.4 K/UL RBC (test code = 1002) 3.76 M/UL HEMOGLOBIN (test code = 1003) 10.7 G/DL HEMATOCRIT (test code = 1004) 32.7 % MCV (test code = 1005) 87.0 fL MCH (test code = 1006) 28.5 PG MCHC (test code = 1007) 32.7 G/DL RDW (test code = 1038) 13.6 % NEUTROPHILS (test code = 1008) 69.3 % LYMPHOCYTES (test code = 1010) 20.5 % MONOCYTES (test code = 1011) 6.8 % EOSINOPHILS (test code = 1012) 3.2 % BASOPHILS (test code = 1013) 0.2 % IMMATURE GRANULOCYTES (test 0.0 % code = 1036) NUCLEATED RBCS (test code = 0.0 /100WBC'S 1065) PLATELET COUNT (test code = 225 K/UL 1015) ABSOLUTE NEUTROPHILS (test code 3.05 K/UL = 1066) ABSOLUTE LYMPHOCYTES (test code 0.90 K/UL = 1067) ABSOLUTE MONOCYTES (test code = 0.30 K/UL 1068) ABSOLUTE EOSINOPHILS (test code 0.14 K/UL = 1040) ABSOLUTE BASOPHILS (test code = 0.01 K/UL 1069) ABS IMMATURE GRANULOCYTES (test 0.00 K/UL code = 1020) ABS NUCLEATED RBCS (test code = 0.00 K/UL 96781) CBC W/AUTO [id number] 00:00:00 Test Item Value Reference Range Interpretation Comments WBC (test code = 1001) 4.3 K/UL RBC (test code = 1002) 3.73 M/UL HEMOGLOBIN (test code = 1003) 10.9 G/DL HEMATOCRIT (test code = 1004) 32.7 % MCV (test code = 1005) 87.7 fL MCH (test code = 1006) 29.2 PG MCHC (test code = 1007) 33.3 G/DL RDW (test code = 1038) 13.6 % NEUTROPHILS (test code = 1008) 67.6 % LYMPHOCYTES (test code = 1010) 23.1 % MONOCYTES (test code = 1011) 6.4 % EOSINOPHILS (test code = 1012) 2.4 % BASOPHILS (test code = 1013) 0.5 % PLATELET COUNT (test code = 1015) 223 K/UL CBC W/AUTO [id number] 00:00:00 Test Item Value Reference Range Interpretation Comments WBC (test code = 1001) 4.3 K/UL RBC (test code = 1002) 3.73 M/UL HEMOGLOBIN (test code = 1003) 10.9 G/DL HEMATOCRIT (test code = 1004) 32.7 % MCV (test code = 1005) 87.7 fL MCH (test code = 1006) 29.2 PG MCHC (test code = 1007) 33.3 G/DL RDW (test code = 1038) 13.6 % NEUTROPHILS (test code = 1008) 67.6 % LYMPHOCYTES (test code = 1010) 23.1 % MONOCYTES (test code = 1011) 6.4 % EOSINOPHILS (test code = 1012) 2.4 % BASOPHILS (test code = 1013) 0.5 % PLATELET COUNT (test code = 1015) 223 K/UL HEMOGLOBIN [id number] 00:00:00 Test Item Value Reference Range Interpretation Comments HEMOGLOBIN A1c (test code = 56564) 5.9 % HEMOGLOBIN [id number] 00:00:00 Test Item Value Reference Range Interpretation Comments HEMOGLOBIN A1c (test code = 89232) 5.9 % HEMOGLOBIN [id number] 00:00:00 Test Item Value Reference Range Interpretation Comments HEMOGLOBIN A1c (test code = 00428) 5.9 % LIPID [id number] 00:00:00 Test Item Value Reference Range Interpretation Comments CHOLESTEROL (test code = 2210) 181 MG/DL TRIGLYCERIDES (test code = 2232) 62 MG/DL HDL CHOLESTEROL (test code = 2220) 82 MG/DL CALC LDL CHOL (test code = 2237) 85 MG/DL RISK RATIO LDL/HDL (test code = 1.04 RATIO 2238) LIPID [id number] 00:00:00 Test Item Value Reference Range Interpretation Comments CHOLESTEROL (test code = 2210) 181 MG/DL TRIGLYCERIDES (test code = 2232) 62 MG/DL HDL CHOLESTEROL (test code = 2220) 82 MG/DL CALC LDL CHOL (test code = 2237) 85 MG/DL RISK RATIO LDL/HDL (test code = 1.04 RATIO 2238) COMPREHENSIVE METABOLIC [id number] 00:00:00 Test Item Value Reference Range Interpretation Comments GLUCOSE (test code = 2217) 115 MG/DL BUN (test code = 2208) 23 MG/DL CREATININE (test code = 2214) 0.67 MG/DL eGFR AMER. (test code 101 ML/MIN/1.73 = 31812) eGFR NON- AMER. (test 87 ML/MIN/1.73 code = 36339) CALC BUN/CREAT (test code = 34 RATIO 2235) SODIUM (test code = 2231) 141 MEQ/L POTASSIUM (test code = 2228) 4.3 MEQ/L CHLORIDE (test code = 2215) 103 MEQ/L CARBON DIOXIDE (test code = 26 MEQ/L 220) CALCIUM (test code = 2209) 9.4 MG/DL PROTEIN, TOTAL (test code = 7.0 G/DL 2228) ALBUMIN (test code = 2201) 4.7 G/DL CALC GLOBULIN (test code = 2.3 G/DL 2240) CALC A/G RATIO (test code = 2.0 RATIO 2233) BILIRUBIN, TOTAL (test code = 0.3 MG/DL 2206) ALKALINE PHOSPHATASE (test 69 U/L code = 2204) AST (test code = 2218) 19 U/L ALT (test code = 2219) 14 U/L COMPREHENSIVE METABOLIC [id number] 00:00:00 Test Item Value Reference Range Interpretation Comments GLUCOSE (test code = 2217) 115 MG/DL BUN (test code = 2208) 23 MG/DL CREATININE (test code = 2214) 0.67 MG/DL eGFR AMER. (test code 101 ML/MIN/1.73 = 51276) eGFR NON- AMER. (test 87 ML/MIN/1.73 code = 67760) CALC BUN/CREAT (test code = 34 RATIO 2235) SODIUM (test code = 2231) 141 MEQ/L POTASSIUM (test code = 2228) 4.3 MEQ/L CHLORIDE (test code = 2215) 103 MEQ/L CARBON DIOXIDE (test code = 26 MEQ/L 2206) CALCIUM (test code = 2209) 9.4 MG/DL PROTEIN, TOTAL (test code = 7.0 G/DL 2228) ALBUMIN (test code = 2201) 4.7 G/DL CALC GLOBULIN (test code = 2.3 G/DL 2240) CALC A/G RATIO (test code = 2.0 RATIO 2234) BILIRUBIN, TOTAL (test code = 0.3 MG/DL 2207) ALKALINE PHOSPHATASE (test 69 U/L code = 2204) AST (test code = 2218) 19 U/L ALT (test code = 2219) 14 U/L MICROALBUMIN/CREATININE, RANDOM AND [id number] 00:00:00 Test Item Value Reference Range Interpretation Comments CREATININE, URINE, CONC. (test 140.1 MG/DL code = 2072) ALBUMIN, URINE, RANDOM (test code 1.2 MG/DL = 25614) CALC ALBUMIN/CREAT, RND (test 9 MG/G code = 62479) MICROALBUMIN/CREATININE, RANDOM AND [id number] 00:00:00 Test Item Value Reference Range Interpretation Comments CREATININE, URINE, CONC. (test 140.1 MG/DL code = 2072) ALBUMIN, URINE, RANDOM (test code 1.2 MG/DL = 61496) CALC ALBUMIN/CREAT, RND (test 9 MG/G code = 49873) CBC W/AUTO [id number] 00:00:00 Test Item Value Reference Range Interpretation Comments WBC (test code = 1001) 4.3 K/UL RBC (test code = 1002) 3.73 M/UL HEMOGLOBIN (test code = 1003) 10.9 G/DL HEMATOCRIT (test code = 1004) 32.7 % MCV (test code = 1005) 87.7 fL MCH (test code = 1006) 29.2 PG MCHC (test code = 1007) 33.3 G/DL RDW (test code = 1038) 13.6 % NEUTROPHILS (test code = 1008) 67.6 % LYMPHOCYTES (test code = 1010) 23.1 % MONOCYTES (test code = 1011) 6.4 % EOSINOPHILS (test code = 1012) 2.4 % BASOPHILS (test code = 1013) 0.5 % PLATELET COUNT (test code = 1015) 223 K/UL CBC W/AUTO [id number] 00:00:00 Test Item Value Reference Range Interpretation Comments WBC (test code = 1001) 4.3 K/UL RBC (test code = 1002) 3.73 M/UL HEMOGLOBIN (test code = 1003) 10.9 G/DL HEMATOCRIT (test code = 1004) 32.7 % MCV (test code = 1005) 87.7 fL MCH (test code = 1006) 29.2 PG MCHC (test code = 1007) 33.3 G/DL RDW (test code = 1038) 13.6 % NEUTROPHILS (test code = 1008) 67.6 % LYMPHOCYTES (test code = 1010) 23.1 % MONOCYTES (test code = 1011) 6.4 % EOSINOPHILS (test code = 1012) 2.4 % BASOPHILS (test code = 1013) 0.5 % PLATELET COUNT (test code = 1015) 223 K/UL CBC W/AUTO [id number] 00:00:00 Test Item Value Reference Range Interpretation Comments WBC (test code = 1001) 4.3 K/UL RBC (test code = 1002) 3.73 M/UL HEMOGLOBIN (test code = 1003) 10.9 G/DL HEMATOCRIT (test code = 1004) 32.7 % MCV (test code = 1005) 87.7 fL MCH (test code = 1006) 29.2 PG MCHC (test code = 1007) 33.3 G/DL RDW (test code = 1038) 13.6 % NEUTROPHILS (test code = 1008) 67.6 % LYMPHOCYTES (test code = 1010) 23.1 % MONOCYTES (test code = 1011) 6.4 % EOSINOPHILS (test code = 1012) 2.4 % BASOPHILS (test code = 1013) 0.5 % PLATELET COUNT (test code = 1015) 223 K/UL HEMOGLOBIN [id number] 00:00:00 Test Item Value Reference Range Interpretation Comments HEMOGLOBIN A1c (test code = 90729) 5.9 % HEMOGLOBIN [id number] 00:00:00 Test Item Value Reference Range Interpretation Comments HEMOGLOBIN A1c (test code = 01954) 5.9 % HEMOGLOBIN [id number] 00:00:00 Test Item Value Reference Range Interpretation Comments HEMOGLOBIN A1c (test code = 16123) 5.9 % LIPID [id number] 00:00:00 Test Item Value Reference Range Interpretation Comments CHOLESTEROL (test code = 2210) 181 MG/DL TRIGLYCERIDES (test code = 2232) 62 MG/DL HDL CHOLESTEROL (test code = 2220) 82 MG/DL CALC LDL CHOL (test code = 2237) 85 MG/DL RISK RATIO LDL/HDL (test code = 1.04 RATIO 2238) LIPID [id number] 00:00:00 Test Item Value Reference Range Interpretation Comments CHOLESTEROL (test code = 2210) 181 MG/DL TRIGLYCERIDES (test code = 2232) 62 MG/DL HDL CHOLESTEROL (test code = 2220) 82 MG/DL CALC LDL CHOL (test code = 2237) 85 MG/DL RISK RATIO LDL/HDL (test code = 1.04 RATIO 2238) COMPREHENSIVE METABOLIC [id number] 00:00:00 Test Item Value Reference Range Interpretation Comments GLUCOSE (test code = 2217) 115 MG/DL BUN (test code = 2208) 23 MG/DL CREATININE (test code = 2214) 0.67 MG/DL eGFR AMER. (test code 101 ML/MIN/1.73 = 52651) eGFR NON- AMER. (test 87 ML/MIN/1.73 code = 00837) CALC BUN/CREAT (test code = 34 RATIO 2235) SODIUM (test code = 2231) 141 MEQ/L POTASSIUM (test code = 2228) 4.3 MEQ/L CHLORIDE (test code = 2215) 103 MEQ/L CARBON DIOXIDE (test code = 26 MEQ/L 2205) CALCIUM (test code = 2209) 9.4 MG/DL PROTEIN, TOTAL (test code = 7.0 G/DL 2228) ALBUMIN (test code = 2201) 4.7 G/DL CALC GLOBULIN (test code = 2.3 G/DL 2240) CALC A/G RATIO (test code = 2.0 RATIO 2234) BILIRUBIN, TOTAL (test code = 0.3 MG/DL 2206) ALKALINE PHOSPHATASE (test 69 U/L code = 2204) AST (test code = 2218) 19 U/L ALT (test code = 2219) 14 U/L COMPREHENSIVE METABOLIC [id number] 00:00:00 Test Item Value Reference Range Interpretation Comments GLUCOSE (test code = 2217) 115 MG/DL BUN (test code = 2208) 23 MG/DL CREATININE (test code = 2214) 0.67 MG/DL eGFR AMER. (test code 101 ML/MIN/1.73 = 23051) eGFR NON- AMER. (test 87 ML/MIN/1.73 code = 86546) CALC BUN/CREAT (test code = 34 RATIO 2235) SODIUM (test code = 2231) 141 MEQ/L POTASSIUM (test code = 2228) 4.3 MEQ/L CHLORIDE (test code = 2215) 103 MEQ/L CARBON DIOXIDE (test code = 26 MEQ/L 2205) CALCIUM (test code = 2209) 9.4 MG/DL PROTEIN, TOTAL (test code = 7.0 G/DL 2228) ALBUMIN (test code = 220) 4.7 G/DL CALC GLOBULIN (test code = 2.3 G/DL 2239) CALC A/G RATIO (test code = 2.0 RATIO 2233) BILIRUBIN, TOTAL (test code = 0.3 MG/DL 2206) ALKALINE PHOSPHATASE (test 69 U/L code = 2203) AST (test code = 2218) 19 U/L ALT (test code = 2219) 14 U/L MICROALBUMIN/CREATININE, RANDOM AND [id number] 00:00:00 Test Item Value Reference Range Interpretation Comments CREATININE, URINE, CONC. (test 140.1 MG/DL code = 2072) ALBUMIN, URINE, RANDOM (test code 1.2 MG/DL = 69294) CALC ALBUMIN/CREAT, RND (test 9 MG/G code = 83797) MICROALBUMIN/CREATININE, RANDOM AND [id number] 00:00:00 Test Item Value Reference Range Interpretation Comments CREATININE, URINE, CONC. (test 140.1 MG/DL code = 2072) ALBUMIN, URINE, RANDOM (test code 1.2 MG/DL = 47956) CALC ALBUMIN/CREAT, RND (test 9 MG/G code = 40227) CBC W/AUTO [id number] 00:00:00 Test Item Value Reference Range Interpretation Comments WBC (test code = 1001) 4.3 K/UL RBC (test code = 1002) 3.73 M/UL HEMOGLOBIN (test code = 1003) 10.9 G/DL HEMATOCRIT (test code = 1004) 32.7 % MCV (test code = 1005) 87.7 fL MCH (test code = 1006) 29.2 PG MCHC (test code = 1007) 33.3 G/DL RDW (test code = 1038) 13.6 % NEUTROPHILS (test code = 1008) 67.6 % LYMPHOCYTES (test code = 1010) 23.1 % MONOCYTES (test code = 1011) 6.4 % EOSINOPHILS (test code = 1012) 2.4 % BASOPHILS (test code = 1013) 0.5 % PLATELET COUNT (test code = 1015) 223 K/UL SARS-CoV-2 (COVID-19) by RT-PCR (HIGH RISK)2020-08-18 00:00:00 Test Item Value Reference Range Interpretation Comments SARS-CoV-2 INTERPRETATION (test NEGATIVE code = 68921) SOURCE (test code = 51901) NOT SPECIFIED SARS-CoV-2 (COVID-19) by RT-PCR (HIGH RISK)2020-08-18 00:00:00 Test Item Value Reference Range Interpretation Comments SARS-CoV-2 INTERPRETATION (test NEGATIVE code = 00775) SOURCE (test code = 48236) NOT SPECIFIED SARS-CoV-2 (COVID-19) by RT-PCR (HIGH RISK)2020-08-18 00:00:00 Test Item Value Reference Range Interpretation Comments SARS-CoV-2 INTERPRETATION (test NEGATIVE code = 14924) SOURCE (test code = 54688) NOT SPECIFIED SARS-CoV-2 (COVID-19) by RT-PCR (HIGH RISK)2020-08-18 00:00:00 Test Item Value Reference Range Interpretation Comments SARS-CoV-2 INTERPRETATION (test NEGATIVE code = 60789) SOURCE (test code = 73659) NOT SPECIFIED CBC W/AUTO [id number] 00:00:00 Test Item Value Reference Range Interpretation Comments WBC (test code = 1001) 4.8 K/UL RBC (test code = 1002) 3.69 M/UL HEMOGLOBIN (test code = 1003) 10.6 G/DL HEMATOCRIT (test code = 1004) 31.7 % MCV (test code = 1005) 85.9 fL MCH (test code = 1006) 28.7 PG MCHC (test code = 1007) 33.4 G/DL RDW (test code = 1038) 13.8 % NEUTROPHILS (test code = 1008) 68.1 % LYMPHOCYTES (test code = 1010) 22.1 % MONOCYTES (test code = 1011) 6.7 % EOSINOPHILS (test code = 1012) 2.7 % BASOPHILS (test code = 1013) 0.4 % PLATELET COUNT (test code = 1015) 220 K/UL CBC W/AUTO [id number] 00:00:00 Test Item Value Reference Range Interpretation Comments WBC (test code = 1001) 4.8 K/UL RBC (test code = 1002) 3.69 M/UL HEMOGLOBIN (test code = 1003) 10.6 G/DL HEMATOCRIT (test code = 1004) 31.7 % MCV (test code = 1005) 85.9 fL MCH (test code = 1006) 28.7 PG MCHC (test code = 1007) 33.4 G/DL RDW (test code = 1038) 13.8 % NEUTROPHILS (test code = 1008) 68.1 % LYMPHOCYTES (test code = 1010) 22.1 % MONOCYTES (test code = 1011) 6.7 % EOSINOPHILS (test code = 1012) 2.7 % BASOPHILS (test code = 1013) 0.4 % PLATELET COUNT (test code = 1015) 220 K/UL HEMOGLOBIN [id number] 00:00:00 Test Item Value Reference Range Interpretation Comments HEMOGLOBIN A1c (test code = 05567) 5.7 % HEMOGLOBIN [id number] 00:00:00 Test Item Value Reference Range Interpretation Comments HEMOGLOBIN A1c (test code = 43690) 5.7 % HEMOGLOBIN [id number] 00:00:00 Test Item Value Reference Range Interpretation Comments HEMOGLOBIN A1c (test code = 87273) 5.7 % LIPID [id number] 00:00:00 Test Item Value Reference Range Interpretation Comments CHOLESTEROL (test code = 2210) 169 MG/DL TRIGLYCERIDES (test code = 2232) 92 MG/DL HDL CHOLESTEROL (test code = 2220) 74 MG/DL CALC LDL CHOL (test code = 2237) 77 MG/DL RISK RATIO LDL/HDL (test code = 1.04 RATIO 2238) LIPID [id number] 00:00:00 Test Item Value Reference Range Interpretation Comments CHOLESTEROL (test code = 2210) 169 MG/DL TRIGLYCERIDES (test code = 2232) 92 MG/DL HDL CHOLESTEROL (test code = 2220) 74 MG/DL CALC LDL CHOL (test code = 2237) 77 MG/DL RISK RATIO LDL/HDL (test code = 1.04 RATIO 2238) COMPREHENSIVE METABOLIC [id number] 00:00:00 Test Item Value Reference Range Interpretation Comments GLUCOSE (test code = 2217) 116 MG/DL BUN (test code = 2208) 26 MG/DL CREATININE (test code = 2214) 0.72 MG/DL eGFR AMER. (test code 97 ML/MIN/1.73 = 63064) eGFR NON- AMER. (test 84 ML/MIN/1.73 code = 62841) CALC BUN/CREAT (test code = 36 RATIO 2235) SODIUM (test code = 2231) 144 MEQ/L POTASSIUM (test code = 2228) 4.6 MEQ/L CHLORIDE (test code = 2215) 105 MEQ/L CARBON DIOXIDE (test code = 24 MEQ/L 2205) CALCIUM (test code = 2209) 9.7 MG/DL PROTEIN, TOTAL (test code = 6.9 G/DL 2228) ALBUMIN (test code = 2201) 4.6 G/DL CALC GLOBULIN (test code = 2.3 G/DL 2240) CALC A/G RATIO (test code = 2.0 RATIO 223) BILIRUBIN, TOTAL (test code = <0.2 MG/DL 2206) ALKALINE PHOSPHATASE (test 68 U/L code = 2204) AST (test code = 2218) 14 U/L ALT (test code = 2219) 12 U/L COMPREHENSIVE METABOLIC [id number] 00:00:00 Test Item Value Reference Range Interpretation Comments GLUCOSE (test code = 2217) 116 MG/DL BUN (test code = 2208) 26 MG/DL CREATININE (test code = 2214) 0.72 MG/DL eGFR AMER. (test code 97 ML/MIN/1.73 = 08691) eGFR NON- AMER. (test 84 ML/MIN/1.73 code = 50434) CALC BUN/CREAT (test code = 36 RATIO 2235) SODIUM (test code = 2231) 144 MEQ/L POTASSIUM (test code = 2228) 4.6 MEQ/L CHLORIDE (test code = 2215) 105 MEQ/L CARBON DIOXIDE (test code = 24 MEQ/L 220) CALCIUM (test code = 2209) 9.7 MG/DL PROTEIN, TOTAL (test code = 6.9 G/DL 2228) ALBUMIN (test code = 2201) 4.6 G/DL CALC GLOBULIN (test code = 2.3 G/DL 2240) CALC A/G RATIO (test code = 2.0 RATIO 2234) BILIRUBIN, TOTAL (test code = <0.2 MG/DL 2207) ALKALINE PHOSPHATASE (test 68 U/L code = 2204) AST (test code = 2218) 14 U/L ALT (test code = 2219) 12 U/L MICROALBUMIN/CREATININE, RANDOM AND [id number] 00:00:00 Test Item Value Reference Range Interpretation Comments CREATININE, URINE, CONC. (test 208.5 MG/DL code = 2072) ALBUMIN, URINE, RANDOM (test code 1.3 MG/DL = 25620) CALC ALBUMIN/CREAT, RND (test 6 MG/G code = 44573) MICROALBUMIN/CREATININE, RANDOM AND [id number] 00:00:00 Test Item Value Reference Range Interpretation Comments CREATININE, URINE, CONC. (test 208.5 MG/DL code = 2072) ALBUMIN, URINE, RANDOM (test code 1.3 MG/DL = 43600) CALC ALBUMIN/CREAT, RND (test 6 MG/G code = 14879) CBC W/AUTO [id number] 00:00:00 Test Item Value Reference Range Interpretation Comments WBC (test code = 1001) 4.8 K/UL RBC (test code = 1002) 3.69 M/UL HEMOGLOBIN (test code = 1003) 10.6 G/DL HEMATOCRIT (test code = 1004) 31.7 % MCV (test code = 1005) 85.9 fL MCH (test code = 1006) 28.7 PG MCHC (test code = 1007) 33.4 G/DL RDW (test code = 1038) 13.8 % NEUTROPHILS (test code = 1008) 68.1 % LYMPHOCYTES (test code = 1010) 22.1 % MONOCYTES (test code = 1011) 6.7 % EOSINOPHILS (test code = 1012) 2.7 % BASOPHILS (test code = 1013) 0.4 % PLATELET COUNT (test code = 1015) 220 K/UL CBC W/AUTO [id number] 00:00:00 Test Item Value Reference Range Interpretation Comments WBC (test code = 1001) 4.8 K/UL RBC (test code = 1002) 3.69 M/UL HEMOGLOBIN (test code = 1003) 10.6 G/DL HEMATOCRIT (test code = 1004) 31.7 % MCV (test code = 1005) 85.9 fL MCH (test code = 1006) 28.7 PG MCHC (test code = 1007) 33.4 G/DL RDW (test code = 1038) 13.8 % NEUTROPHILS (test code = 1008) 68.1 % LYMPHOCYTES (test code = 1010) 22.1 % MONOCYTES (test code = 1011) 6.7 % EOSINOPHILS (test code = 1012) 2.7 % BASOPHILS (test code = 1013) 0.4 % PLATELET COUNT (test code = 1015) 220 K/UL CBC W/AUTO [id number] 00:00:00 Test Item Value Reference Range Interpretation Comments WBC (test code = 1001) 4.8 K/UL RBC (test code = 1002) 3.69 M/UL HEMOGLOBIN (test code = 1003) 10.6 G/DL HEMATOCRIT (test code = 1004) 31.7 % MCV (test code = 1005) 85.9 fL MCH (test code = 1006) 28.7 PG MCHC (test code = 1007) 33.4 G/DL RDW (test code = 1038) 13.8 % NEUTROPHILS (test code = 1008) 68.1 % LYMPHOCYTES (test code = 1010) 22.1 % MONOCYTES (test code = 1011) 6.7 % EOSINOPHILS (test code = 1012) 2.7 % BASOPHILS (test code = 1013) 0.4 % PLATELET COUNT (test code = 1015) 220 K/UL HEMOGLOBIN [id number] 00:00:00 Test Item Value Reference Range Interpretation Comments HEMOGLOBIN A1c (test code = 17661) 5.7 % HEMOGLOBIN [id number] 00:00:00 Test Item Value Reference Range Interpretation Comments HEMOGLOBIN A1c (test code = 69403) 5.7 % HEMOGLOBIN [id number] 00:00:00 Test Item Value Reference Range Interpretation Comments HEMOGLOBIN A1c (test code = 29315) 5.7 % LIPID [id number] 00:00:00 Test Item Value Reference Range Interpretation Comments CHOLESTEROL (test code = 2210) 169 MG/DL TRIGLYCERIDES (test code = 2232) 92 MG/DL HDL CHOLESTEROL (test code = 2220) 74 MG/DL CALC LDL CHOL (test code = 2237) 77 MG/DL RISK RATIO LDL/HDL (test code = 1.04 RATIO 2238) LIPID [id number] 00:00:00 Test Item Value Reference Range Interpretation Comments CHOLESTEROL (test code = 2210) 169 MG/DL TRIGLYCERIDES (test code = 2232) 92 MG/DL HDL CHOLESTEROL (test code = 2220) 74 MG/DL CALC LDL CHOL (test code = 2237) 77 MG/DL RISK RATIO LDL/HDL (test code = 1.04 RATIO 2238) COMPREHENSIVE METABOLIC [id number] 00:00:00 Test Item Value Reference Range Interpretation Comments GLUCOSE (test code = 2217) 116 MG/DL BUN (test code = 2208) 26 MG/DL CREATININE (test code = 2214) 0.72 MG/DL eGFR AMER. (test code 97 ML/MIN/1.73 = 84460) eGFR NON- AMER. (test 84 ML/MIN/1.73 code = 36926) CALC BUN/CREAT (test code = 36 RATIO 2235) SODIUM (test code = 2231) 144 MEQ/L POTASSIUM (test code = 2228) 4.6 MEQ/L CHLORIDE (test code = 2215) 105 MEQ/L CARBON DIOXIDE (test code = 24 MEQ/L 220) CALCIUM (test code = 2209) 9.7 MG/DL PROTEIN, TOTAL (test code = 6.9 G/DL 2228) ALBUMIN (test code = 2201) 4.6 G/DL CALC GLOBULIN (test code = 2.3 G/DL 2240) CALC A/G RATIO (test code = 2.0 RATIO 2234) BILIRUBIN, TOTAL (test code = <0.2 MG/DL 2206) ALKALINE PHOSPHATASE (test 68 U/L code = 2204) AST (test code = 2218) 14 U/L ALT (test code = 2219) 12 U/L COMPREHENSIVE METABOLIC [id number] 00:00:00 Test Item Value Reference Range Interpretation Comments GLUCOSE (test code = 2217) 116 MG/DL BUN (test code = 2208) 26 MG/DL CREATININE (test code = 2214) 0.72 MG/DL eGFR AMER. (test code 97 ML/MIN/1.73 = 52708) eGFR NON- AMER. (test 84 ML/MIN/1.73 code = 11616) CALC BUN/CREAT (test code = 36 RATIO 2235) SODIUM (test code = 2231) 144 MEQ/L POTASSIUM (test code = 2228) 4.6 MEQ/L CHLORIDE (test code = 2215) 105 MEQ/L CARBON DIOXIDE (test code = 24 MEQ/L 2205) CALCIUM (test code = 2209) 9.7 MG/DL PROTEIN, TOTAL (test code = 6.9 G/DL 2228) ALBUMIN (test code = 220) 4.6 G/DL CALC GLOBULIN (test code = 2.3 G/DL 224) CALC A/G RATIO (test code = 2.0 RATIO 223) BILIRUBIN, TOTAL (test code = <0.2 MG/DL 2206) ALKALINE PHOSPHATASE (test 68 U/L code = 220) AST (test code = 2218) 14 U/L ALT (test code = 2219) 12 U/L MICROALBUMIN/CREATININE, RANDOM AND [id number] 00:00:00 Test Item Value Reference Range Interpretation Comments CREATININE, URINE, CONC. (test 208.5 MG/DL code = 2072) ALBUMIN, URINE, RANDOM (test code 1.3 MG/DL = 82188) CALC ALBUMIN/CREAT, RND (test 6 MG/G code = 93678) MICROALBUMIN/CREATININE, RANDOM AND [id number] 00:00:00 Test Item Value Reference Range Interpretation Comments CREATININE, URINE, CONC. (test 208.5 MG/DL code = 2072) ALBUMIN, URINE, RANDOM (test code 1.3 MG/DL = 40971) CALC ALBUMIN/CREAT, RND (test 6 MG/G code = 72285) CBC W/AUTO [id number] 00:00:00 Test Item Value Reference Range Interpretation Comments WBC (test code = 1001) 4.8 K/UL RBC (test code = 1002) 3.69 M/UL HEMOGLOBIN (test code = 1003) 10.6 G/DL HEMATOCRIT (test code = 1004) 31.7 % MCV (test code = 1005) 85.9 fL MCH (test code = 1006) 28.7 PG MCHC (test code = 1007) 33.4 G/DL RDW (test code = 1038) 13.8 % NEUTROPHILS (test code = 1008) 68.1 % LYMPHOCYTES (test code = 1010) 22.1 % MONOCYTES (test code = 1011) 6.7 % EOSINOPHILS (test code = 1012) 2.7 % BASOPHILS (test code = 1013) 0.4 % PLATELET COUNT (test code = 1015) 220 K/UL PATHOLOGIST SMEAR [id number] 00:00:00 Test Item Value Reference Range Interpretation Comments DIAGNOSIS: (test code = 8200) (NOTE) COMMENTS: (test code = 8205) (NOTE) MICROSCOPIC DESCRIPTION: (test code (NOTE) = 8210) PATHOLOGIST: (test code = 8250) CPT: (test code = 8400) 86271 WBC (test code = 1001) 3.7 K/UL RBC (test code = 1002) 3.69 M/UL HEMOGLOBIN (test code = 1003) 10.5 G/DL HEMATOCRIT (test code = 1004) 31.8 % MCV (test code = 1005) 86.2 fL MCH (test code = 1006) 28.5 PG MCHC (test code = 1007) 33.0 G/DL RDW (test code = 1038) 13.4 % NEUTROPHILS (test code = 1008) 65.2 % LYMPHOCYTES (test code = 1010) 24.1 % MONOCYTES (test code = 1011) 6.7 % EOSINOPHILS (test code = 1012) 3.7 % BASOPHILS (test code = 1013) 0.3 % PLATELET COUNT (test code = 1015) 213 K/UL COMMENTS (test code = 1016) (NOTE) PATHOLOGIST SMEAR [id number] 00:00:00 Test Item Value Reference Range Interpretation Comments DIAGNOSIS: (test code = 8200) (NOTE) COMMENTS: (test code = 8205) (NOTE) MICROSCOPIC DESCRIPTION: (test code (NOTE) = 8210) PATHOLOGIST: (test code = 8250) CPT: (test code = 8400) 39537 WBC (test code = 1001) 3.7 K/UL RBC (test code = 1002) 3.69 M/UL HEMOGLOBIN (test code = 1003) 10.5 G/DL HEMATOCRIT (test code = 1004) 31.8 % MCV (test code = 1005) 86.2 fL MCH (test code = 1006) 28.5 PG MCHC (test code = 1007) 33.0 G/DL RDW (test code = 1038) 13.4 % NEUTROPHILS (test code = 1008) 65.2 % LYMPHOCYTES (test code = 1010) 24.1 % MONOCYTES (test code = 1011) 6.7 % EOSINOPHILS (test code = 1012) 3.7 % BASOPHILS (test code = 1013) 0.3 % PLATELET COUNT (test code = 1015) 213 K/UL COMMENTS (test code = 1016) (NOTE) PATHOLOGIST SMEAR [id number] 00:00:00 Test Item Value Reference Range Interpretation Comments DIAGNOSIS: (test code = 8200) (NOTE) COMMENTS: (test code = 8205) (NOTE) MICROSCOPIC DESCRIPTION: (test code (NOTE) = 8210) PATHOLOGIST: (test code = 8250) CPT: (test code = 8400) 35550 WBC (test code = 1001) 3.7 K/UL RBC (test code = 1002) 3.69 M/UL HEMOGLOBIN (test code = 1003) 10.5 G/DL HEMATOCRIT (test code = 1004) 31.8 % MCV (test code = 1005) 86.2 fL MCH (test code = 1006) 28.5 PG MCHC (test code = 1007) 33.0 G/DL RDW (test code = 1038) 13.4 % NEUTROPHILS (test code = 1008) 65.2 % LYMPHOCYTES (test code = 1010) 24.1 % MONOCYTES (test code = 1011) 6.7 % EOSINOPHILS (test code = 1012) 3.7 % BASOPHILS (test code = 1013) 0.3 % PLATELET COUNT (test code = 1015) 213 K/UL COMMENTS (test code = 1016) (NOTE) PATHOLOGIST SMEAR [id number] 00:00:00 Test Item Value Reference Range Interpretation Comments DIAGNOSIS: (test code = 8200) (NOTE) COMMENTS: (test code = 8205) (NOTE) MICROSCOPIC DESCRIPTION: (test code (NOTE) = 8210) PATHOLOGIST: (test code = 8250) CPT: (test code = 8400) 13443 WBC (test code = 1001) 3.7 K/UL RBC (test code = 1002) 3.69 M/UL HEMOGLOBIN (test code = 1003) 10.5 G/DL HEMATOCRIT (test code = 1004) 31.8 % MCV (test code = 1005) 86.2 fL MCH (test code = 1006) 28.5 PG MCHC (test code = 1007) 33.0 G/DL RDW (test code = 1038) 13.4 % NEUTROPHILS (test code = 1008) 65.2 % LYMPHOCYTES (test code = 1010) 24.1 % MONOCYTES (test code = 1011) 6.7 % EOSINOPHILS (test code = 1012) 3.7 % BASOPHILS (test code = 1013) 0.3 % PLATELET COUNT (test code = 1015) 213 K/UL COMMENTS (test code = 1016) (NOTE) CBC W/AUTO [id number] 00:00:00 Test Item Value Reference Range Interpretation Comments WBC (test code = 1001) 4.7 K/UL RBC (test code = 1002) 3.82 M/UL HEMOGLOBIN (test code = 1003) 10.8 G/DL HEMATOCRIT (test code = 1004) 32.5 % MCV (test code = 1005) 85.1 fL MCH (test code = 1006) 28.3 PG MCHC (test code = 1007) 33.2 G/DL RDW (test code = 1038) 13.4 % NEUTROPHILS (test code = 1008) 62.2 % LYMPHOCYTES (test code = 1010) 29.0 % MONOCYTES (test code = 1011) 6.0 % EOSINOPHILS (test code = 1012) 2.4 % BASOPHILS (test code = 1013) 0.4 % PLATELET COUNT (test code = 1015) 237 K/UL CBC W/AUTO [id number] 00:00:00 Test Item Value Reference Range Interpretation Comments WBC (test code = 1001) 4.7 K/UL RBC (test code = 1002) 3.82 M/UL HEMOGLOBIN (test code = 1003) 10.8 G/DL HEMATOCRIT (test code = 1004) 32.5 % MCV (test code = 1005) 85.1 fL MCH (test code = 1006) 28.3 PG MCHC (test code = 1007) 33.2 G/DL RDW (test code = 1038) 13.4 % NEUTROPHILS (test code = 1008) 62.2 % LYMPHOCYTES (test code = 1010) 29.0 % MONOCYTES (test code = 1011) 6.0 % EOSINOPHILS (test code = 1012) 2.4 % BASOPHILS (test code = 1013) 0.4 % PLATELET COUNT (test code = 1015) 237 K/UL CBC W/AUTO [id number] 00:00:00 Test Item Value Reference Range Interpretation Comments WBC (test code = 1001) 4.7 K/UL RBC (test code = 1002) 3.82 M/UL HEMOGLOBIN (test code = 1003) 10.8 G/DL HEMATOCRIT (test code = 1004) 32.5 % MCV (test code = 1005) 85.1 fL MCH (test code = 1006) 28.3 PG MCHC (test code = 1007) 33.2 G/DL RDW (test code = 1038) 13.4 % NEUTROPHILS (test code = 1008) 62.2 % LYMPHOCYTES (test code = 1010) 29.0 % MONOCYTES (test code = 1011) 6.0 % EOSINOPHILS (test code = 1012) 2.4 % BASOPHILS (test code = 1013) 0.4 % PLATELET COUNT (test code = 1015) 237 K/UL CBC W/AUTO [id number] 00:00:00 Test Item Value Reference Range Interpretation Comments WBC (test code = 1001) 4.7 K/UL RBC (test code = 1002) 3.82 M/UL HEMOGLOBIN (test code = 1003) 10.8 G/DL HEMATOCRIT (test code = 1004) 32.5 % MCV (test code = 1005) 85.1 fL MCH (test code = 1006) 28.3 PG MCHC (test code = 1007) 33.2 G/DL RDW (test code = 1038) 13.4 % NEUTROPHILS (test code = 1008) 62.2 % LYMPHOCYTES (test code = 1010) 29.0 % MONOCYTES (test code = 1011) 6.0 % EOSINOPHILS (test code = 1012) 2.4 % BASOPHILS (test code = 1013) 0.4 % PLATELET COUNT (test code = 1015) 237 K/UL CBC W/AUTO [id number] 00:00:00 Test Item Value Reference Range Interpretation Comments WBC (test code = 1001) 4.7 K/UL RBC (test code = 1002) 3.82 M/UL HEMOGLOBIN (test code = 1003) 10.8 G/DL HEMATOCRIT (test code = 1004) 32.5 % MCV (test code = 1005) 85.1 fL MCH (test code = 1006) 28.3 PG MCHC (test code = 1007) 33.2 G/DL RDW (test code = 1038) 13.4 % NEUTROPHILS (test code = 1008) 62.2 % LYMPHOCYTES (test code = 1010) 29.0 % MONOCYTES (test code = 1011) 6.0 % EOSINOPHILS (test code = 1012) 2.4 % BASOPHILS (test code = 1013) 0.4 % PLATELET COUNT (test code = 1015) 237 K/UL CBC W/AUTO [id number] 00:00:00 Test Item Value Reference Range Interpretation Comments WBC (test code = 1001) 4.7 K/UL RBC (test code = 1002) 3.82 M/UL HEMOGLOBIN (test code = 1003) 10.8 G/DL HEMATOCRIT (test code = 1004) 32.5 % MCV (test code = 1005) 85.1 fL MCH (test code = 1006) 28.3 PG MCHC (test code = 1007) 33.2 G/DL RDW (test code = 1038) 13.4 % NEUTROPHILS (test code = 1008) 62.2 % LYMPHOCYTES (test code = 1010) 29.0 % MONOCYTES (test code = 1011) 6.0 % EOSINOPHILS (test code = 1012) 2.4 % BASOPHILS (test code = 1013) 0.4 % PLATELET COUNT (test code = 1015) 237 K/UL IRON BINDING CAPACITY AND IRON AND % [id number] 00:00:00 Test Item Value Reference Range Interpretation Comments IRON, SERUM (test code = 2221) 96 UG/DL UNSATURATED IBC (test code = ) 282 UG/DL CALC TOTAL IBC (test code = 2076) 378 UG/DL CALC % IRON SAT (test code = 2078) 25 % IRON BINDING CAPACITY AND IRON AND % [id number] 00:00:00 Test Item Value Reference Range Interpretation Comments IRON, SERUM (test code = 2) 96 UG/DL UNSATURATED IBC (test code = 57709) 282 UG/DL CALC TOTAL IBC (test code = 7) 378 UG/DL CALC % IRON SAT (test code = 2078) 25 % [id number] 00:00:00 Test Item Value Reference Range Interpretation Comments FERRITIN (test code = 5) 81 NG/ML [id number] 00:00:00 Test Item Value Reference Range Interpretation Comments FERRITIN (test code = 2075) 81 NG/ML [id number] 00:00:00 Test Item Value Reference Range Interpretation Comments TRANSFERRIN (test code = 4936) 333 MG/DL [id number] 00:00:00 Test Item Value Reference Range Interpretation Comments TRANSFERRIN (test code = 4936) 333 MG/DL CBC W/AUTO [id number] 00:00:00 Test Item Value Reference Range Interpretation Comments WBC (test code = 1001) 3.7 K/UL RBC (test code = 1002) 3.88 M/UL HEMOGLOBIN (test code = 1003) 10.8 G/DL HEMATOCRIT (test code = 1004) 32.7 % MCV (test code = 1005) 84.3 fL MCH (test code = 1006) 27.8 PG MCHC (test code = 1007) 33.0 G/DL RDW (test code = 1038) 13.5 % NEUTROPHILS (test code = 1008) 61.2 % LYMPHOCYTES (test code = 1010) 29.2 % MONOCYTES (test code = 1011) 7.5 % EOSINOPHILS (test code = 1012) 1.6 % BASOPHILS (test code = 1013) 0.5 % PLATELET COUNT (test code = 1015) 251 K/UL CBC W/AUTO [id number] 00:00:00 Test Item Value Reference Range Interpretation Comments WBC (test code = 1001) 3.7 K/UL RBC (test code = 1002) 3.88 M/UL HEMOGLOBIN (test code = 1003) 10.8 G/DL HEMATOCRIT (test code = 1004) 32.7 % MCV (test code = 1005) 84.3 fL MCH (test code = 1006) 27.8 PG MCHC (test code = 1007) 33.0 G/DL RDW (test code = 1038) 13.5 % NEUTROPHILS (test code = 1008) 61.2 % LYMPHOCYTES (test code = 1010) 29.2 % MONOCYTES (test code = 1011) 7.5 % EOSINOPHILS (test code = 1012) 1.6 % BASOPHILS (test code = 1013) 0.5 % PLATELET COUNT (test code = 1015) 251 K/UL CBC W/AUTO [id number] 00:00:00 Test Item Value Reference Range Interpretation Comments WBC (test code = 1001) 3.7 K/UL RBC (test code = 1002) 3.88 M/UL HEMOGLOBIN (test code = 1003) 10.8 G/DL HEMATOCRIT (test code = 1004) 32.7 % MCV (test code = 1005) 84.3 fL MCH (test code = 1006) 27.8 PG MCHC (test code = 1007) 33.0 G/DL RDW (test code = 1038) 13.5 % NEUTROPHILS (test code = 1008) 61.2 % LYMPHOCYTES (test code = 1010) 29.2 % MONOCYTES (test code = 1011) 7.5 % EOSINOPHILS (test code = 1012) 1.6 % BASOPHILS (test code = 1013) 0.5 % PLATELET COUNT (test code = 1015) 251 K/UL IRON BINDING CAPACITY AND IRON AND % [id number] 00:00:00 Test Item Value Reference Range Interpretation Comments IRON, SERUM (test code = 2) 96 UG/DL UNSATURATED IBC (test code = 71234) 282 UG/DL CALC TOTAL IBC (test code = 7) 378 UG/DL CALC % IRON SAT (test code = 9) 25 % IRON BINDING CAPACITY AND IRON AND % [id number] 00:00:00 Test Item Value Reference Range Interpretation Comments IRON, SERUM (test code = 2) 96 UG/DL UNSATURATED IBC (test code = 44202) 282 UG/DL CALC TOTAL IBC (test code = 7) 378 UG/DL CALC % IRON SAT (test code = 9) 25 % [id number] 00:00:00 Test Item Value Reference Range Interpretation Comments FERRITIN (test code = 2075) 81 NG/ML [id number] 00:00:00 Test Item Value Reference Range Interpretation Comments FERRITIN (test code = 2075) 81 NG/ML [id number] 00:00:00 Test Item Value Reference Range Interpretation Comments TRANSFERRIN (test code = 4936) 333 MG/DL [id number] 00:00:00 Test Item Value Reference Range Interpretation Comments TRANSFERRIN (test code = 4936) 333 MG/DL CBC W/AUTO [id number] 00:00:00 Test Item Value Reference Range Interpretation Comments WBC (test code = 1001) 3.7 K/UL RBC (test code = 1002) 3.88 M/UL HEMOGLOBIN (test code = 1003) 10.8 G/DL HEMATOCRIT (test code = 1004) 32.7 % MCV (test code = 1005) 84.3 fL MCH (test code = 1006) 27.8 PG MCHC (test code = 1007) 33.0 G/DL RDW (test code = 1038) 13.5 % NEUTROPHILS (test code = 1008) 61.2 % LYMPHOCYTES (test code = 1010) 29.2 % MONOCYTES (test code = 1011) 7.5 % EOSINOPHILS (test code = 1012) 1.6 % BASOPHILS (test code = 1013) 0.5 % PLATELET COUNT (test code = 1015) 251 K/UL CBC W/AUTO [id number] 00:00:00 Test Item Value Reference Range Interpretation Comments WBC (test code = 1001) 3.7 K/UL RBC (test code = 1002) 3.88 M/UL HEMOGLOBIN (test code = 1003) 10.8 G/DL HEMATOCRIT (test code = 1004) 32.7 % MCV (test code = 1005) 84.3 fL MCH (test code = 1006) 27.8 PG MCHC (test code = 1007) 33.0 G/DL RDW (test code = 1038) 13.5 % NEUTROPHILS (test code = 1008) 61.2 % LYMPHOCYTES (test code = 1010) 29.2 % MONOCYTES (test code = 1011) 7.5 % EOSINOPHILS (test code = 1012) 1.6 % BASOPHILS (test code = 1013) 0.5 % PLATELET COUNT (test code = 1015) 251 K/UL CBC W/AUTO [id number] 00:00:00 Test Item Value Reference Range Interpretation Comments WBC (test code = 1001) 3.7 K/UL RBC (test code = 1002) 3.88 M/UL HEMOGLOBIN (test code = 1003) 10.8 G/DL HEMATOCRIT (test code = 1004) 32.7 % MCV (test code = 1005) 84.3 fL MCH (test code = 1006) 27.8 PG MCHC (test code = 1007) 33.0 G/DL RDW (test code = 1038) 13.5 % NEUTROPHILS (test code = 1008) 61.2 % LYMPHOCYTES (test code = 1010) 29.2 % MONOCYTES (test code = 1011) 7.5 % EOSINOPHILS (test code = 1012) 1.6 % BASOPHILS (test code = 1013) 0.5 % PLATELET COUNT (test code = 1015) 251 K/UL CBC W/AUTO [id number] 00:00:00 Test Item Value Reference Range Interpretation Comments WBC (test code = 1001) 3.8 K/UL RBC (test code = 1002) 3.74 M/UL HEMOGLOBIN (test code = 1003) 10.7 G/DL HEMATOCRIT (test code = 1004) 31.7 % MCV (test code = 1005) 84.8 fL MCH (test code = 1006) 28.6 PG MCHC (test code = 1007) 33.8 G/DL RDW (test code = 1038) 13.2 % NEUTROPHILS (test code = 1008) 65.5 % LYMPHOCYTES (test code = 1010) 25.9 % MONOCYTES (test code = 1011) 6.3 % EOSINOPHILS (test code = 1012) 1.8 % BASOPHILS (test code = 1013) 0.5 % PLATELET COUNT (test code = 1015) 241 K/UL HEMOGLOBIN [id number] 00:00:00 Test Item Value Reference Range Interpretation Comments HEMOGLOBIN A1c (test code = 73776) 5.9 % HEMOGLOBIN [id number] 00:00:00 Test Item Value Reference Range Interpretation Comments HEMOGLOBIN A1c (test code = 16350) 5.9 % HEMOGLOBIN [id number] 00:00:00 Test Item Value Reference Range Interpretation Comments HEMOGLOBIN A1c (test code = 35624) 5.9 % CBC W/AUTO [id number] 00:00:00 Test Item Value Reference Range Interpretation Comments WBC (test code = 1001) 3.8 K/UL RBC (test code = 1002) 3.74 M/UL HEMOGLOBIN (test code = 1003) 10.7 G/DL HEMATOCRIT (test code = 1004) 31.7 % MCV (test code = 1005) 84.8 fL MCH (test code = 1006) 28.6 PG MCHC (test code = 1007) 33.8 G/DL RDW (test code = 1038) 13.2 % NEUTROPHILS (test code = 1008) 65.5 % LYMPHOCYTES (test code = 1010) 25.9 % MONOCYTES (test code = 1011) 6.3 % EOSINOPHILS (test code = 1012) 1.8 % BASOPHILS (test code = 1013) 0.5 % PLATELET COUNT (test code = 1015) 241 K/UL CBC W/AUTO [id number] 00:00:00 Test Item Value Reference Range Interpretation Comments WBC (test code = 1001) 3.8 K/UL RBC (test code = 1002) 3.74 M/UL HEMOGLOBIN (test code = 1003) 10.7 G/DL HEMATOCRIT (test code = 1004) 31.7 % MCV (test code = 1005) 84.8 fL MCH (test code = 1006) 28.6 PG MCHC (test code = 1007) 33.8 G/DL RDW (test code = 1038) 13.2 % NEUTROPHILS (test code = 1008) 65.5 % LYMPHOCYTES (test code = 1010) 25.9 % MONOCYTES (test code = 1011) 6.3 % EOSINOPHILS (test code = 1012) 1.8 % BASOPHILS (test code = 1013) 0.5 % PLATELET COUNT (test code = 1015) 241 K/UL CBC W/AUTO [id number] 00:00:00 Test Item Value Reference Range Interpretation Comments WBC (test code = 1001) 3.8 K/UL RBC (test code = 1002) 3.74 M/UL HEMOGLOBIN (test code = 1003) 10.7 G/DL HEMATOCRIT (test code = 1004) 31.7 % MCV (test code = 1005) 84.8 fL MCH (test code = 1006) 28.6 PG MCHC (test code = 1007) 33.8 G/DL RDW (test code = 1038) 13.2 % NEUTROPHILS (test code = 1008) 65.5 % LYMPHOCYTES (test code = 1010) 25.9 % MONOCYTES (test code = 1011) 6.3 % EOSINOPHILS (test code = 1012) 1.8 % BASOPHILS (test code = 1013) 0.5 % PLATELET COUNT (test code = 1015) 241 K/UL HEMOGLOBIN [id number] 00:00:00 Test Item Value Reference Range Interpretation Comments HEMOGLOBIN A1c (test code = 49371) 5.9 % HEMOGLOBIN [id number] 00:00:00 Test Item Value Reference Range Interpretation Comments HEMOGLOBIN A1c (test code = 93708) 5.9 % HEMOGLOBIN [id number] 00:00:00 Test Item Value Reference Range Interpretation Comments HEMOGLOBIN A1c (test code = 77913) 5.9 % CBC W/AUTO [id number] 00:00:00 Test Item Value Reference Range Interpretation Comments WBC (test code = 1001) 3.8 K/UL RBC (test code = 1002) 3.74 M/UL HEMOGLOBIN (test code = 1003) 10.7 G/DL HEMATOCRIT (test code = 1004) 31.7 % MCV (test code = 1005) 84.8 fL MCH (test code = 1006) 28.6 PG MCHC (test code = 1007) 33.8 G/DL RDW (test code = 1038) 13.2 % NEUTROPHILS (test code = 1008) 65.5 % LYMPHOCYTES (test code = 1010) 25.9 % MONOCYTES (test code = 1011) 6.3 % EOSINOPHILS (test code = 1012) 1.8 % BASOPHILS (test code = 1013) 0.5 % PLATELET COUNT (test code = 1015) 241 K/UL CBC W/AUTO [id number] 00:00:00 Test Item Value Reference Range Interpretation Comments WBC (test code = 1001) 3.8 K/UL RBC (test code = 1002) 3.74 M/UL HEMOGLOBIN (test code = 1003) 10.7 G/DL HEMATOCRIT (test code = 1004) 31.7 % MCV (test code = 1005) 84.8 fL MCH (test code = 1006) 28.6 PG MCHC (test code = 1007) 33.8 G/DL RDW (test code = 1038) 13.2 % NEUTROPHILS (test code = 1008) 65.5 % LYMPHOCYTES (test code = 1010) 25.9 % MONOCYTES (test code = 1011) 6.3 % EOSINOPHILS (test code = 1012) 1.8 % BASOPHILS (test code = 1013) 0.5 % PLATELET COUNT (test code = 1015) 241 K/UL HEMOGLOBIN [id number] 00:00:00 Test Item Value Reference Range Interpretation Comments HEMOGLOBIN A1c (test code = 15790) 5.8 % HEMOGLOBIN [id number] 00:00:00 Test Item Value Reference Range Interpretation Comments HEMOGLOBIN A1c (test code = 59348) 5.8 % HEMOGLOBIN [id number] 00:00:00 Test Item Value Reference Range Interpretation Comments HEMOGLOBIN A1c (test code = 12418) 5.8 % HEMOGLOBIN [id number] 00:00:00 Test Item Value Reference Range Interpretation Comments HEMOGLOBIN A1c (test code = 32912) 5.8 % HEMOGLOBIN [id number] 00:00:00 Test Item Value Reference Range Interpretation Comments HEMOGLOBIN A1c (test code = 30603) 5.8 % HEMOGLOBIN [id number] 00:00:00 Test Item Value Reference Range Interpretation Comments HEMOGLOBIN A1c (test code = 07055) 5.8 % VITAMIN B 12 AND FOLIC [id number] 00:00:00 Test Item Value Reference Range Interpretation Comments VITAMIN B-12 (test code = 2840) 512 PG/ML FOLIC ACID (test code = 2695) >20.0 UG/L VITAMIN B 12 AND FOLIC [id number] 00:00:00 Test Item Value Reference Range Interpretation Comments VITAMIN B-12 (test code = 2840) 512 PG/ML FOLIC ACID (test code = 2695) >20.0 UG/L VITAMIN B 12 AND FOLIC [id number] 00:00:00 Test Item Value Reference Range Interpretation Comments VITAMIN B-12 (test code = 2840) 512 PG/ML FOLIC ACID (test code = 2695) >20.0 UG/L VITAMIN B 12 AND FOLIC [id number] 00:00:00 Test Item Value Reference Range Interpretation Comments VITAMIN B-12 (test code = 2840) 512 PG/ML FOLIC ACID (test code = 2695) >20.0 UG/L CBC W/AUTO [id number] 00:00:00 Test Item Value Reference Range Interpretation Comments WBC (test code = 1001) 5.0 K/UL RBC (test code = 1002) 3.85 M/UL HEMOGLOBIN (test code = 1003) 11.2 G/DL HEMATOCRIT (test code = 1004) 32.9 % MCV (test code = 1005) 85.5 fL MCH (test code = 1006) 29.1 PG MCHC (test code = 1007) 34.0 G/DL RDW (test code = 1038) 14.1 % NEUTROPHILS (test code = 1008) 68.7 % LYMPHOCYTES (test code = 1010) 23.0 % MONOCYTES (test code = 1011) 6.3 % EOSINOPHILS (test code = 1012) 1.6 % BASOPHILS (test code = 1013) 0.4 % PLATELET COUNT (test code = 1015) 201 K/UL CBC W/AUTO [id number] 00:00:00 Test Item Value Reference Range Interpretation Comments WBC (test code = 1001) 5.0 K/UL RBC (test code = 1002) 3.85 M/UL HEMOGLOBIN (test code = 1003) 11.2 G/DL HEMATOCRIT (test code = 1004) 32.9 % MCV (test code = 1005) 85.5 fL MCH (test code = 1006) 29.1 PG MCHC (test code = 1007) 34.0 G/DL RDW (test code = 1038) 14.1 % NEUTROPHILS (test code = 1008) 68.7 % LYMPHOCYTES (test code = 1010) 23.0 % MONOCYTES (test code = 1011) 6.3 % EOSINOPHILS (test code = 1012) 1.6 % BASOPHILS (test code = 1013) 0.4 % PLATELET COUNT (test code = 1015) 201 K/UL CBC W/AUTO [id number] 00:00:00 Test Item Value Reference Range Interpretation Comments WBC (test code = 1001) 5.0 K/UL RBC (test code = 1002) 3.85 M/UL HEMOGLOBIN (test code = 1003) 11.2 G/DL HEMATOCRIT (test code = 1004) 32.9 % MCV (test code = 1005) 85.5 fL MCH (test code = 1006) 29.1 PG MCHC (test code = 1007) 34.0 G/DL RDW (test code = 1038) 14.1 % NEUTROPHILS (test code = 1008) 68.7 % LYMPHOCYTES (test code = 1010) 23.0 % MONOCYTES (test code = 1011) 6.3 % EOSINOPHILS (test code = 1012) 1.6 % BASOPHILS (test code = 1013) 0.4 % PLATELET COUNT (test code = 1015) 201 K/UL HEMOGLOBIN [id number] 00:00:00 Test Item Value Reference Range Interpretation Comments HEMOGLOBIN A1c (test code = 58491) 5.7 % HEMOGLOBIN [id number] 00:00:00 Test Item Value Reference Range Interpretation Comments HEMOGLOBIN A1c (test code = 22479) 5.7 % HEMOGLOBIN [id number] 00:00:00 Test Item Value Reference Range Interpretation Comments HEMOGLOBIN A1c (test code = 22957) 5.7 % LIPID [id number] 00:00:00 Test Item Value Reference Range Interpretation Comments CHOLESTEROL (test code = 2210) 177 MG/DL TRIGLYCERIDES (test code = 2232) 95 MG/DL HDL CHOLESTEROL (test code = 2220) 71 MG/DL CALC LDL CHOL (test code = 2237) 87 MG/DL RISK RATIO LDL/HDL (test code = 1.23 RATIO 2238) LIPID [id number] 00:00:00 Test Item Value Reference Range Interpretation Comments CHOLESTEROL (test code = 2210) 177 MG/DL TRIGLYCERIDES (test code = 2232) 95 MG/DL HDL CHOLESTEROL (test code = 2220) 71 MG/DL CALC LDL CHOL (test code = 2237) 87 MG/DL RISK RATIO LDL/HDL (test code = 1.23 RATIO 2238) COMPREHENSIVE METABOLIC [id number] 00:00:00 Test Item Value Reference Range Interpretation Comments GLUCOSE (test code = 2217) 114 MG/DL BUN (test code = 2208) 22 MG/DL CREATININE (test code = 2214) 0.66 MG/DL eGFR AMER. (test code 103 ML/MIN/1.73 = 50800) eGFR NON- AMER. (test 89 ML/MIN/1.73 code = 89360) CALC BUN/CREAT (test code = 33 RATIO 2235) SODIUM (test code = 2231) 142 MEQ/L POTASSIUM (test code = 2228) 4.4 MEQ/L CHLORIDE (test code = 2215) 102 MEQ/L CARBON DIOXIDE (test code = 28 MEQ/L 2205) CALCIUM (test code = 2209) 9.4 MG/DL PROTEIN, TOTAL (test code = 6.8 G/DL 2228) ALBUMIN (test code = 2201) 4.6 G/DL CALC GLOBULIN (test code = 2.2 G/DL 2239) CALC A/G RATIO (test code = 2.1 RATIO 2234) BILIRUBIN, TOTAL (test code = 0.3 MG/DL 2206) ALKALINE PHOSPHATASE (test 80 U/L code = 2204) AST (test code = 2218) 19 U/L ALT (test code = 2219) 14 U/L COMPREHENSIVE METABOLIC [id number] 00:00:00 Test Item Value Reference Range Interpretation Comments GLUCOSE (test code = 2217) 114 MG/DL BUN (test code = 2208) 22 MG/DL CREATININE (test code = 2214) 0.66 MG/DL eGFR AMER. (test code 103 ML/MIN/1.73 = 66745) eGFR NON- AMER. (test 89 ML/MIN/1.73 code = 44899) CALC BUN/CREAT (test code = 33 RATIO 2235) SODIUM (test code = 2231) 142 MEQ/L POTASSIUM (test code = 2228) 4.4 MEQ/L CHLORIDE (test code = 2215) 102 MEQ/L CARBON DIOXIDE (test code = 28 MEQ/L 2205) CALCIUM (test code = 2209) 9.4 MG/DL PROTEIN, TOTAL (test code = 6.8 G/DL 2228) ALBUMIN (test code = 2201) 4.6 G/DL CALC GLOBULIN (test code = 2.2 G/DL 2240) CALC A/G RATIO (test code = 2.1 RATIO 2234) BILIRUBIN, TOTAL (test code = 0.3 MG/DL 2206) ALKALINE PHOSPHATASE (test 80 U/L code = 2204) AST (test code = 2218) 19 U/L ALT (test code = 2219) 14 U/L MICROALBUMIN/CREATININE, RANDOM AND [id number] 00:00:00 Test Item Value Reference Range Interpretation Comments CREATININE, URINE, CONC. (test 147.7 MG/DL code = 2072) ALBUMIN, URINE, RANDOM (test code 0.8 MG/DL = 68350) CALC ALBUMIN/CREAT, RND (test 5 MG/G code = 52023) MICROALBUMIN/CREATININE, RANDOM AND [id number] 00:00:00 Test Item Value Reference Range Interpretation Comments CREATININE, URINE, CONC. (test 147.7 MG/DL code = 2072) ALBUMIN, URINE, RANDOM (test code 0.8 MG/DL = 72802) CALC ALBUMIN/CREAT, RND (test 5 MG/G code = 38791) CBC W/AUTO [id number] 00:00:00 Test Item Value Reference Range Interpretation Comments WBC (test code = 1001) 5.0 K/UL RBC (test code = 1002) 3.85 M/UL HEMOGLOBIN (test code = 1003) 11.2 G/DL HEMATOCRIT (test code = 1004) 32.9 % MCV (test code = 1005) 85.5 fL MCH (test code = 1006) 29.1 PG MCHC (test code = 1007) 34.0 G/DL RDW (test code = 1038) 14.1 % NEUTROPHILS (test code = 1008) 68.7 % LYMPHOCYTES (test code = 1010) 23.0 % MONOCYTES (test code = 1011) 6.3 % EOSINOPHILS (test code = 1012) 1.6 % BASOPHILS (test code = 1013) 0.4 % PLATELET COUNT (test code = 1015) 201 K/UL CBC W/AUTO [id number] 00:00:00 Test Item Value Reference Range Interpretation Comments WBC (test code = 1001) 5.0 K/UL RBC (test code = 1002) 3.85 M/UL HEMOGLOBIN (test code = 1003) 11.2 G/DL HEMATOCRIT (test code = 1004) 32.9 % MCV (test code = 1005) 85.5 fL MCH (test code = 1006) 29.1 PG MCHC (test code = 1007) 34.0 G/DL RDW (test code = 1038) 14.1 % NEUTROPHILS (test code = 1008) 68.7 % LYMPHOCYTES (test code = 1010) 23.0 % MONOCYTES (test code = 1011) 6.3 % EOSINOPHILS (test code = 1012) 1.6 % BASOPHILS (test code = 1013) 0.4 % PLATELET COUNT (test code = 1015) 201 K/UL CBC W/AUTO [id number] 00:00:00 Test Item Value Reference Range Interpretation Comments WBC (test code = 1001) 5.0 K/UL RBC (test code = 1002) 3.85 M/UL HEMOGLOBIN (test code = 1003) 11.2 G/DL HEMATOCRIT (test code = 1004) 32.9 % MCV (test code = 1005) 85.5 fL MCH (test code = 1006) 29.1 PG MCHC (test code = 1007) 34.0 G/DL RDW (test code = 1038) 14.1 % NEUTROPHILS (test code = 1008) 68.7 % LYMPHOCYTES (test code = 1010) 23.0 % MONOCYTES (test code = 1011) 6.3 % EOSINOPHILS (test code = 1012) 1.6 % BASOPHILS (test code = 1013) 0.4 % PLATELET COUNT (test code = 1015) 201 K/UL HEMOGLOBIN [id number] 00:00:00 Test Item Value Reference Range Interpretation Comments HEMOGLOBIN A1c (test code = 69756) 5.7 % HEMOGLOBIN [id number] 00:00:00 Test Item Value Reference Range Interpretation Comments HEMOGLOBIN A1c (test code = 99022) 5.7 % HEMOGLOBIN [id number] 00:00:00 Test Item Value Reference Range Interpretation Comments HEMOGLOBIN A1c (test code = 15353) 5.7 % LIPID [id number] 00:00:00 Test Item Value Reference Range Interpretation Comments CHOLESTEROL (test code = 2210) 177 MG/DL TRIGLYCERIDES (test code = 2232) 95 MG/DL HDL CHOLESTEROL (test code = 2220) 71 MG/DL CALC LDL CHOL (test code = 2237) 87 MG/DL RISK RATIO LDL/HDL (test code = 1.23 RATIO 2238) LIPID [id number] 00:00:00 Test Item Value Reference Range Interpretation Comments CHOLESTEROL (test code = 2210) 177 MG/DL TRIGLYCERIDES (test code = 2232) 95 MG/DL HDL CHOLESTEROL (test code = 2220) 71 MG/DL CALC LDL CHOL (test code = 2237) 87 MG/DL RISK RATIO LDL/HDL (test code = 1.23 RATIO 2238) COMPREHENSIVE METABOLIC [id number] 00:00:00 Test Item Value Reference Range Interpretation Comments GLUCOSE (test code = 2217) 114 MG/DL BUN (test code = 2208) 22 MG/DL CREATININE (test code = 2214) 0.66 MG/DL eGFR AMER. (test code 103 ML/MIN/1.73 = 96126) eGFR NON- AMER. (test 89 ML/MIN/1.73 code = 74380) CALC BUN/CREAT (test code = 33 RATIO 2235) SODIUM (test code = 2231) 142 MEQ/L POTASSIUM (test code = 2228) 4.4 MEQ/L CHLORIDE (test code = 2215) 102 MEQ/L CARBON DIOXIDE (test code = 28 MEQ/L 220) CALCIUM (test code = 2209) 9.4 MG/DL PROTEIN, TOTAL (test code = 6.8 G/DL 2228) ALBUMIN (test code = 2201) 4.6 G/DL CALC GLOBULIN (test code = 2.2 G/DL 2240) CALC A/G RATIO (test code = 2.1 RATIO 2234) BILIRUBIN, TOTAL (test code = 0.3 MG/DL 2206) ALKALINE PHOSPHATASE (test 80 U/L code = 2204) AST (test code = 2218) 19 U/L ALT (test code = 2219) 14 U/L COMPREHENSIVE METABOLIC [id number] 00:00:00 Test Item Value Reference Range Interpretation Comments GLUCOSE (test code = 2217) 114 MG/DL BUN (test code = 2208) 22 MG/DL CREATININE (test code = 2214) 0.66 MG/DL eGFR AMER. (test code 103 ML/MIN/1.73 = 79530) eGFR NON- AMER. (test 89 ML/MIN/1.73 code = 90594) CALC BUN/CREAT (test code = 33 RATIO 2235) SODIUM (test code = 2231) 142 MEQ/L POTASSIUM (test code = 2228) 4.4 MEQ/L CHLORIDE (test code = 2215) 102 MEQ/L CARBON DIOXIDE (test code = 28 MEQ/L 2205) CALCIUM (test code = 2209) 9.4 MG/DL PROTEIN, TOTAL (test code = 6.8 G/DL 2228) ALBUMIN (test code = 2201) 4.6 G/DL CALC GLOBULIN (test code = 2.2 G/DL 2240) CALC A/G RATIO (test code = 2.1 RATIO 2234) BILIRUBIN, TOTAL (test code = 0.3 MG/DL 2206) ALKALINE PHOSPHATASE (test 80 U/L code = 2204) AST (test code = 2218) 19 U/L ALT (test code = 2219) 14 U/L MICROALBUMIN/CREATININE, RANDOM AND [id number] 00:00:00 Test Item Value Reference Range Interpretation Comments CREATININE, URINE, CONC. (test 147.7 MG/DL code = 2072) ALBUMIN, URINE, RANDOM (test code 0.8 MG/DL = 33369) CALC ALBUMIN/CREAT, RND (test 5 MG/G code = 01808) MICROALBUMIN/CREATININE, RANDOM AND [id number] 00:00:00 Test Item Value Reference Range Interpretation Comments CREATININE, URINE, CONC. (test 147.7 MG/DL code = 2072) ALBUMIN, URINE, RANDOM (test code 0.8 MG/DL = 05683) CALC ALBUMIN/CREAT, RND (test 5 MG/G code = 61687)
--- NOTE | 2023-05-12 12:28 | RAD REPORT ---
EXAM DESCRIPTION: RAD - Chest Single View - 05/12/2023 12:17 pm CLINICAL HISTORY: COUGH COMPARISON: No comparisons FINDINGS: Lines: None. Lungs: Consolidative appearing opacity at the right lung base that is not well characterized. Left mathew ng is clear. Pleural: No significant pleural effusions or pneumothorax. Cardiac: The heart size is within normal limits. Mediastinum: Within normal limits. Bones: No acute fractures. Other: None IMPRESSION: Opacity at the right lung base. This could reflect pneumonia or atelectasis. Consider de dicated PA and lateral to better assess.
--- NOTE | 2023-05-12 13:19 | ER ---
Nurse's Notes [facility] Name: Adriana De La Paz Age: 77 yrs Sex: Female : 1945 Arrival Date: 05/12/2023 Time: 11:20 Bed 12 Private MD: Debra Leonard Diagnosis: SARS-associated coronavirus as the cause of diseases classified elsewhere Presentation: 05/12 11:37 Chief complaint: Sinus congestion, headache, and cough x 2 days. Coronavirus screen: hb Client presents with at least one sign or symptom that may indicate coronavirus-19. Provider contacted for isolation considerations. Ebola Screen: No symptoms or risks identified at this time. Initial Sepsis Screen: Does the patient meet any 2 criteria? No. Patient's initial sepsis screen is negative. Does the patient have a suspected source of infection? No. Patient's initial sepsis screen is negative. Risk Assessment: Do you want to hurt yourself or someone else? Patient reports no desire to harm self or others. Onset of symptoms was May 11, 2023. 11:37 Method Of Arrival: Ambulatory hb 11:37 Acuity: DEISY 4 hb Historical: - Allergies: 11:39 tramadol; hb - PMHx: 11:39 Diabetes - NIDDM; Hyperlipidemia; hb - PSHx: 11:39 Cholecystectomy; hernia; hiatal hernia; hysterectomy; pinched nerve; throat; tubal; hb - Immunization history:: Adult Immunizations up to date. - Social history:: Smoking status: Patient reports the use of cigarette tobacco products, smokes one-half pack cigarettes per day. - Family history:: not pertinent. - Hospitalizations: : No recent hospitalization is reported. Screenin:00 [facility] ED Fall Risk Assessment (Adult) Score/Fall Risk Level 0 - 2 = Low Risk hb Oriented to surroundings, Maintained a safe environment. Abuse screen: Denies threats or abuse. Denies injuries from another. Nutritional screening: No deficits noted. Tuberculosis screening: No symptoms or risk factors identified. Assessment: 11:45 General: Appears in no apparent distress. Behavior is calm, cooperative. Pain: Pain hb currently is 5 out of 10 on a pain scale. Neuro: Level of Consciousness is awake, alert, obeys commands, Oriented to person, place, time, situation, Reports headache. Cardiovascular: Patient's skin is warm and dry. Respiratory: Respiratory effort is even, unlabored, Respiratory pattern is regular, symmetrical. GI: Reports nausea. : No signs and/or symptoms were reported regarding the genitourinary system. EENT: Reports sore throat. Derm: Skin is pink, warm \T\ dry. Musculoskeletal: Reports body aches. 13:00 Reassessment: Patient appears in no apparent distress at this time. Patient and/or hb family updated on plan of care and expected duration. Pain level reassessed. Patient is alert, oriented x 3, equal unlabored respirations, skin warm/dry/pink. Vital Signs: 11:37 BP 138 / 103; Pulse 89; Resp 16; Temp 98.7; Pulse Ox 100% on R/A; Weight 83.91 kg; hb Height 5 ft. 0 in. ; Pain 5/10; 11:37 Body Mass Index 36.13 (83.91 kg, 152.4 cm) hb 11:37 Pain Scale: Adult hb ED Course: 11:22 Patient arrived in ED. mr 11:23 Debra Leonard is Private Physician. mr 11:25 Uvaldo Delgado MD is Attending Physician. rn 11:39 Triage completed. hb 11:39 Arm band placed on. hb 12:00 Patient has correct armband on for positive identification. Provided Education on: . hb 12:00 No provider procedures requiring assistance completed. Patient did not have IV access hb during this emergency room visit. 12:19 XRAY Chest (1 view) In Process Unspecified. EDNE 13:53 Beryl Richards, RN is Primary Nurse. hb Administered Medications: No medications were administered Medication: 17:49 VIS not applicable for this client. hb Outcome: 13:19 Discharge ordered by . rn 13:45 Discharged to home ambulatory, hb 13:45 Condition: stable 13:45 Discharge instructions given to patient, Instructed on discharge instructions, follow up and referral plans. medication usage, Demonstrated understanding of instructions, follow-up care, medications, Prescriptions given X 2, 13:53 Patient left the ED. hb Signatures: Dispatcher [employer] EDNE Beatriz Barnes, Carlos Reg mr Uvaldo Delgado MD MD rn Baxter, Heather, RN RN hb
--- NOTE | 2023-05-12 13:19 | EDPHYS ---
Physician Documentation [facility] Name: Adriana De La Paz Age: 77 yrs Sex: Female : 1945 Arrival Date: 05/12/2023 Time: 11:20 Bed 12 Private MD: Debra Leonard ED Physician Uvaldo Delgado HPI: 05/12 11:36 This 77 yrs old Female presents to ER via Unassigned with complaints of Flu rn Symptoms. 11:36 The patient or guardian reports cough, flu symptoms, low-grade fever, myalgias. Onset: rn The symptoms/episode began/occurred 4 day(s) ago. Severity of symptoms: At their worst the symptoms were mild, in the emergency department the symptoms are unchanged. Modifying factors: The symptoms are alleviated by nothing, the symptoms are aggravated by nothing. Associated signs and symptoms: Pertinent positives: fever, rhinorrhea, sore throat, Pertinent negatives: chest pain. The patient has not experienced similar symptoms in the past. Historical: - Allergies: 11:39 tramadol; hb - PMHx: 11:39 Diabetes - NIDDM; Hyperlipidemia; hb - PSHx: 11:39 Cholecystectomy; hernia; hiatal hernia; hysterectomy; pinched nerve; throat; tubal; hb - Immunization history:: Adult Immunizations up to date. - Social history:: Smoking status: Patient reports the use of cigarette tobacco products, smokes one-half pack cigarettes per day. - Family history:: not pertinent. - Hospitalizations: : No recent hospitalization is reported. ROS: 11:36 Constitutional: Positive for fever and chills Eyes: Negative for injury, pain, redness, rn and discharge, ENT: Positive for runny nose and nasal congestion, positive for sore throat Cardiovascular: Negative for chest pain, palpitations, and edema, Respiratory: Positive for mild cough, negative for shortness of breath Abdomen/GI: Negative for abdominal pain, nausea, vomiting, diarrhea, and constipation, MS/Extremity: Negative for injury and deformity, Skin: Negative for injury, rash, and discoloration, Neuro: Positive for headache, negative for focal neurological deficit Exam: 11:36 Constitutional: This is a well developed, well nourished patient who is awake, alert, rn and in no acute distress. Ambulatory to triage without assistance or distress Head/Face: Normocephalic, atraumatic. ENT: Mild pharyngeal erythema, small uvula that is midline, no evidence of tonsillitis, no peritonsillar abscess. No stridor Neck: Trachea midline, no masses palpated, and no cervical lymphadenopathy. Supple, full range of motion without nuchal rigidity, or vertebral point tenderness. No Meningismus. Cardiovascular: Regular rate and rhythm. No pulse deficits. Respiratory: No increased work of breathing, no retractions or nasal flaring. Abdomen/GI: Soft, non-tender, with normal bowel sounds. No distension or tympany. No guarding or rebound. No evidence of tenderness throughout. Skin: Warm, dry Neuro: Awake and alert, GCS 15, oriented to person, place, time, and situation. Cranial nerves II-XII grossly intact. Motor strength 5/5 in all extremities. Sensory grossly intact. Cerebellar exam normal. Normal gait. Vital Signs: 11:37 BP 138 / 103; Pulse 89; Resp 16; Temp 98.7; Pulse Ox 100% on R/A; Weight 83.91 kg; hb Height 5 ft. 0 in. ; Pain 5/10; 11:37 Body Mass Index 36.13 (83.91 kg, 152.4 cm) hb 11:37 Pain Scale: Adult hb MDM: 11:25 Patient medically screened. rn 13:17 Differential Diagnosis: Bronchitis Influenza Upper Respiratory Infection Viral Syndrome rn Pneumonia Other COVID. Data reviewed: vital signs, nurses notes, lab test result(s), radiologic studies, plain films, and as a result, I will discharge patient. Counseling: I had a detailed discussion with the patient and/or guardian regarding the historical points, exam findings, and any diagnostic results supporting the discharge/admit diagnosis, lab results, radiology results, the need for outpatient follow up, to return to the emergency department if symptoms worsen or persist or if there are any questions or concerns that arise at home. Special discussion: I discussed with the patient/guardian in detail that at this point there is no indication for admission to the hospital. It is understood, however, that if the symptoms persist or worsen the patient needs to return immediately for re-evaluation. Based on the history and exam findings, there is no indication for further emergent testing or inpatient evaluation. I discussed with the patient/guardian the need to see the primary care provider for further evaluation of the symptoms. ED course: I have personally reviewed all of the results, including but not limited to blood tests and imaging deemed necessary to safely discharge this patient at this time. All results given to and printed out for patient. I personally went over all the results with the patient and answered all questions. Patient will follow-up with PCP and or specialist as discussed. Return precautions given and understood.. 05/12 11:35 Order name: Flu; Complete Time: 13:14 hb 05/12 11:35 Order name: Strep hb 05/12 11:49 Order name: COVID-19 SARS RT PCR; Complete Time: 13:14 hb 05/12 12:43 Order name: Throat Culture EDMS 05/12 11:35 Order name: XRAY Chest (1 view); Complete Time: 12:30 hb Administered Medications: No medications were administered Disposition Summary: 05/12/23 13:19 Discharge Ordered Notes: Location: Home rn Problem: new rn Symptoms: are unchanged rn Condition: Stable rn Diagnosis - SARS-associated coronavirus as the cause of diseases classified elsewhere rn Followup: rn - With: Private Physician - When: As needed - Reason: Recheck today's complaints, Re-evaluation by your physician Discharge Instructions: - Discharge Summary Sheet rn - COVID-19 rn - 10 Things You Can Do to Manage Your COVID-19 Symptoms at Home - [facility] (03/05/2021) rn - Viral Illness, Adult rn Forms: - Medication Reconciliation Form rn - Thank You Letter rn - Antibiotic purchasing internship - Prescription Opioid Use rn - Patient Portal Instructions rn - Leadership Thank You Letter rn Prescriptions: - Paxlovid 150-100 mg Oral Tablet, Dose Pack - take 1 dose pack ORAL route as directed on dose pack for 5 days take ONE 150 mg rn tablet of nirmatrelvir with ONE 100 mg tablet of ritonavir twice daily for 5 days; 1 packet; Refills: 0, Product Selection Permitted - Medrol (Kumar) 4 mg Oral Tablets, Dose Pack - take 1 tablet ORAL route as directed - follow package instructions; 1 packet; rn Refills: 0, Product Selection Permitted Signatures: Dispatcher [employer] EDMS Uvaldo Delgado MD MD rn Baxter, Heather, RN RN Corrections: (The following items were deleted from the chart) 12:03 11:36 SARS-COV-2 Antigen Rapid+I.LAB.BRZ ordered. EDMS EDMS
[2023-05-12 15:12] VITALS: BP 138/103; TEMP 98.7; O2SAT 100
== END 2023-05-12 13:53 | disposition home or self-care (01) ==
LOC: ER 11:20
DX: U07.1 COVID-19 (principal); E11.9 Type 2 diabetes mellitus without complications; F17.210 Nicotine dependence, cigarettes, uncomplicated; Z88.5 Allergy status to narcotic agent
CPT/HCPCS: 71045; 87070; 87081; 87635; 87804; 99283

== ENCOUNTER 2024-06-01 08:59 | Emergency (ER) | payer OTHER ==
--- OUTSIDE RECORDS SUMMARY | 2024-06-01 09:06 | XMS REPORT | Continuity of Care Document ---
Author Name Unknown Address [address] [facility] Juan Manuel. [address] [place] [address] [facility] thconnect Address [address] [facility] Juan Manuel. [address] [place] [address] Care Team Providers Care Physician Primary Care Sports Medicine Name Role Phone Sachi Godinez Primary Care Physician 0 Attending Clinician Unavailable Ying Schafer Attending Clinician Unavailable Payers Payer Name Policy Type Policy Number Effective Date Expirati on Date Source 1857 OTHER [id number] 2022 00:00:00 2 OTHER [id number] 2021 00:00:00 1 Medicare Primary [id number] Allergies, Adverse Reactions, Alerts Allergy Name Allergy Type Status Severity Reaction(s) Onset Date Inactive Date Treating Clinician Comments Source Tramadol Propensi ty to adverse reaction to drug Active 2-18 00:00: 00 Edwin Sherman Medications Ordered Medication Name Filled Medication Name Start Date Stop Date Current Medication? Ordering Clinician Indication Dosage Frequency Signature (SIG) Comments Components Source clotrimazol e 1 % vaginal cream 2023-08 0- 00:00: 00 Yes 1% Edwin Sherman sertraline 100 mg tablet 2023-08 0- 00:00: 00 Yes 1mg Edwin Sherman metformin 500 mg tablet 2023-08 0- 00:00: 00 Yes 1mg Edwin Sherman pravastatin 40 mg tablet 2023-08 0- 00:00: 00 Yes 1mg Edwin Sherman omeprazole 40 mg capsule,del ayed release 2023-08 0- 00:00: 00 Yes 1mg Edwin Sherman OMEPRAZOLE 40MG 3-02 00:00: 00 Yes Ewdin Sherman METHYLPRED 4MG DPAK 2024-0 3-01 00:00: 00 Yes 4 Edwin Sherman GABAPENTIN 300MG(N) 0 3-01 00:00: 00 Yes 300 Edwin Sherman PRAVASTATIN 40MG 0 1-18 00:00: 00 Yes [id number] Edwin Sherman TAKE 1 TABLET BY MOUTH EVERY DAY 2023-0 1-16 00:00: 00 Yes Edwin Sherman METFORMIN 500MG 0 1-04 00:00: 00 Yes [id number] Edwin Sherman TAKE 1 TABLET BY MOUTH EVERY DAY 1 0-09 00:00: 00 Yes Edwin Sherman PAXLOVID [id number] 1983-0 9- 00:00: 00 Yes Edwin Sherman TAKE 6 TABLETS ON DAY 1 DIRECTED ON PACKAGE AND DECREASE BY 1 TAB EACH DAY FOR A TOTAL OF 6 DAYS 0 - 00:00: 00 Yes Edwin Sherman TAKE 1 TABLET BY MOUTH EVERY DAY 0 9-07 00:00: 00 Yes Edwin Sherman PRAVASTATIN 40MG 0 9-07 00:00: 00 Yes [id number] Edwin Sherman METFORMIN 500MG 0 9-07 00:00: 00 Yes Edwin Sherman TAKE 1 TABLET BY MOUTH TWICE A DAY WITH BREAKFAST AND EVENING MEALS 0 8-12 00:00: 00 12-31 00:00 :00 No 500 Edwin Sherman OMEPRAZOLE 40MG 0 7-24 00:00: 00 Yes Edwin Sherman TAKE 1 TABLET BY MOUTH TWICE A DAY WITH BREAKFAST AND EVENING MEALS 0 -20 00:00: 00 12-31 00:00 :00 No 500 Edwin Sherman TAKE 1 TABLET ONCE DAILY BEFORE MEALS 0 -20 00:00: 00 12-31 00:00 :00 No 40 Edwin Sherman MELOXICAM 7.5MG 0 7-19 00:00: 00 Yes [id number] Edwin Sherman TAKE 1 TABLET ONCE DAILY BEFORE MEALS 0 - 00:00: 00 Yes 40 Edwin Sherman TAKE 1 TABLET BY MOUTH EVERY DAY 0 - 00:00: 00 Yes Edwin Sherman NYSTATIN [id number] OIN 0 5-17 00:00: 00 Yes Edwin Sherman MELOXICAM 7.5MG 5-16 00:00: 00 Yes Edwin Sherman PRAVASTATIN SODIUM 40 MG TABS 3- 00:00: 00 Yes Edwin Sherman TAKE 1 TABLET BY MOUTH TWICE A DAY WITH BREAKFAST AND EVENING MEALS 0 3-27 00:00: 00 12-31 00:00 :00 No 500 Edwin Sherman TAKE 1 TABLET BY MOUTH TWICE A DAY WITH BREAKFAST AND EVENING MEALS - 00:00: 00 12-31 00:00 :00 No 500 Edwin Sherman SERTRALINE HYDROCHLORI DE 100 MG TABS 1-09 00:00: 00 12-31 00:00 :00 No Edwin Sherman TAKE 1 TABLET DAILY. 1-05 00:00: 00 12-31 00:00 :00 No 100 Edwin Sherman TAKE 1 TABLET BY MOUTH EVERY 8 HOURS NEEDED 2021-08 00:00: 00 Yes 2 Edwin Sherman PRAVASTATIN SODIUM 40 MG TABS 2021-08 00:00: 00 Yes 40 Edwin Sherman TAKE 1 TABLET BY MOUTH THREE TIMES A DAY NEEDED FOR MUSCLE SPASMS 2021-08 00:00: 00 Yes 5 Edwin Sherman KETOCONAZOL E 2 % SHAM 2021-08 00:00: 00 Yes Edwin Sherman Dose Unknown 2021-08 00:00: 00 Yes 40 Edwin Sherman TAKE BY MOUTH DIRECTED ON PACKAGE 2021-08 00:00: 00 Yes 4 Edwin Sherman OMEPRAZOLE 40 MG CPDR 2021-08 00:00: 00 12-31 00:00 :00 No 40 Edwin Sherman Dose Unknown 2021-08 0-03 00:00: 00 Yes Edwin Sherman OMEPRAZOLE 40 MG CPDR 2021-08 0-03 00:00: 00 Yes Edwin Sherman TAKE 1 TABLET ONCE DAILY BEFORE MEALS 0 - 00:00: 00 Yes Edwin Sherman TAKE 1 TABLET BY MOUTH TWICE A DAY WITH BREAKFAST AND EVENING MEALS - 00:00: 00 12-31 00:00 :00 No Edwin Carla Sherman Dose Unknown 0 8-15 00:00: 00 Yes Edwin Carla Sherman Dose Unknown 0 8-15 00:00: 00 No Dose Unknown 0 815 00:00: 00 No Dose Unknown 0 8- 00:00: 00 Yes Edwin Sherman TAKE 1 TABLET BY MOUTH EVERY DAY 0 8- 00:00: 00 Yes 60 Edwin Sheramn Dose Unknown 0 8- 00:00: 00 No TAKE 1 TABLET BY MOUTH EVERY DAY 0 8- 00:00: 00 No 60 Dose Unknown 0 8- 00:00: 00 No TAKE 1 TABLET BY MOUTH EVERY DAY 0 8- 00:00: 00 No 60 Dose Unknown 0 8- 00:00: 00 Yes Edwin Sherman TAKE 1 CAPSULE BY MOUTH EVERY DAY 0 8- 00:00: 00 Yes 40 Edwin Shreman &lt 0 8- 00:00: 00 Yes 300 Edwin Sherman TAKE 1 TABLET BY MOUTH DAILY AT NIGHT 0 8- 00:00: 00 Yes 40 Edwin Carla Sherman Dose Unknown 0 8- 00:00: 00 Yes Edwin Sherman Dose Unknown 0 8- 00:00: 00 No TAKE 1 CAPSULE BY MOUTH EVERY DAY 0 8-10 00:00: 00 No 40 &lt 2021-0 8-10 00:00: 00 No 300 TAKE 1 TABLET BY MOUTH DAILY AT NIGHT 0 8-10 00:00: 00 No 40 Dose Unknown 0 8-10 00:00: 00 No Dose Unknown 0 8-10 00:00: 00 No TAKE 1 CAPSULE BY MOUTH EVERY DAY 0 8-10 00:00: 00 No 40 &lt 2021-0 8-10 00:00: 00 No 300 TAKE 1 TABLET BY MOUTH DAILY AT NIGHT 0 8-10 00:00: 00 No 40 Dose Unknown 0 8-10 00:00: 00 No TAKE 1 TABLET BY MOUTH EVERY 8 HOURS NEEDED 0 7- 00:00: 00 Yes 2 Edwin Sherman Dose Unknown 0 7- 00:00: [address] TAKE 1 TABLET BY MOUTH EVERY 8 HOURS NEEDED 2022-0 7-11 00:00: 00 No 2 Dose Unknown 2022-0 7-11 00:00: 00 No TAKE 1 TABLET BY MOUTH EVERY 8 HOURS NEEDED 2022-0 7-11 00:00: 00 No 2 Dose Unknown 2022-0 7- 00:00: 00 No Dose Unknown 2022-0 7-08 00:00: 00 Yes Edwin Sherman Dose Unknown 2022-0 7- 00:00: 00 Yes Edwin Sherman Dose Unknown 2022-0 - 00:00: 00 Yes Edwin Sherman Dose Unknown 2022-0 - 00:00: 00 No Dose Unknown 2022-0 02-25 00:00: 00 No Dose Unknown 2022-0 - 00:00: 00 No Dose Unknown 2022-0 02-25 00:00: 00 No Dose Unknown 2022-0 7- 00:00: 00 No Dose Unknown 2022-0 - 00:00: 00 No &lt 2022-0 7- 00:00: 00 Yes Edwin Sherman TAKE 1 TABLET BY MOUTH THREE TIMES A DAY NEEDED FOR MUSCLE SPASMS 2022-0 7- 00:00: 00 Yes Edwin Sherman &lt 2022-0 7- 00:00: 00 Yes Edwin Sherman &lt 2022-0 7- 00:00: 00 Yes Edwin Sherman &lt 2022-0 7- 00:00: 00 No TAKE 1 TABLET BY MOUTH THREE TIMES A DAY NEEDED FOR MUSCLE SPASMS 2022-0 7- 00:00: 00 No &lt 2022-0 7- 00:00: 00 No &lt 2022-0 7- 00:00: 00 No &lt 2022-0 7- 00:00: 00 No TAKE 1 TABLET BY MOUTH THREE TIMES A DAY NEEDED FOR MUSCLE SPASMS 2022-0 7- 00:00: 00 No &lt 2022-0 7- 00:00: 00 No &lt 2022-0 7- 00:00: 00 No sertraline 100 mg tablet 2-0 6-14 00:00: 00 Yes 1mg Edwin Sherman omeprazole 40 mg capsule,del ayed release 2022-0 6-14 00:00: 00 Yes 1mg Edwin Sherman sertraline 100 mg tablet 2-0 6-14 00:00: 00 No 1mg omeprazole 40 mg capsule,del ayed release 2022-0 6-14 00:00: 00 No 1mg sertraline 100 mg tablet 2-0 6-14 00:00: 00 No 1mg omeprazole 40 mg capsule,del ayed release 2-0 6-14 00:00: 00 No 1mg Dose Unknown 2-0 3-30 00:00: 00 Yes Edwin Sherman Dose Unknown 2-0 3-30 00:00: 00 No Dose Unknown 2-0 3-30 00:00: 00 No sertraline 100 mg tablet 2-0 3-28 00:00: 00 Yes 1mg Edwin Sherman sertraline 100 mg tablet 2021-0 3-28 00:00: 00 No 1mg sertraline 100 mg tablet 2-0 328 00:00: 00 No 1mg Dose Unknown 2-0 3-22 00:00: 00 Yes Ediwn Sherman Dose Unknown 2-0 3-22 00:00: 00 No Dose Unknown 2-0 3-22 00:00: 00 No Dose Unknown 2-0 3-16 00:00: 00 Yes Edwin Sherman Dose Unknown 2-0 3-16 00:00: 00 No Dose Unknown 2022-0 3-16 00:00: 00 No omeprazole 40 mg capsule,del ayed release 2-0 3-15 00:00: 00 Yes 1mg Edwin Sherman Dose Unknown 2-0 3-15 00:00: 00 Yes Edwin Sherman Dose Unknown 2022-0 3-15 00:00: 00 Yes Edwin Carla Sherman Dose Unknown 2022-0 3-15 00:00: [address] Dose Unknown 2022-0 3-15 00:00: 00 Yes Edwin Carla Sherman Dose Unknown 2022-0 3-15 00:00: 00 Yes Edwin Sherman Dose Unknown 2022-0 3-15 00:00: 00 No Dose Unknown 2022-0 3-15 00:00: 00 No Dose Unknown 2022-0 3-15 00:00: 00 No Dose Unknown 2022-0 3-15 00:00: 00 No Dose Unknown 2-0 3-15 00:00: 00 No omeprazole 40 mg capsule,del ayed release 2-0 3-15 00:00: 00 No 1mg Dose Unknown 2021-0 3-15 00:00: 00 No Dose Unknown 2-0 3-15 00:00: 00 No Dose Unknown 2021-0 3-15 00:00: 00 No Dose Unknown 2021-0 3-15 00:00: 00 No Dose Unknown 2021-0 3-15 00:00: 00 No omeprazole 40 mg capsule,del ayed release 2021-0 3-15 00:00: 00 No 1mg Dose Unknown 2021-0 2-10 00:00: 00 Yes 40mg Edwin Sherman gabapentin 300 mg capsule 2021-0 2-10 00:00: 00 No 1mg gabapentin 300 mg capsule 2021-0 2-10 00:00: 00 No 1mg Dose Unknown 2021-0 2-08 00:00: [address] Dose Unknown 2021-0 2-08 00:00: [address] Dose Unknown 2021-0 2-08 00:00: 00 Yes 40mg Edwin Sherman Dexilant 30 mg capsule, delayed release 2021-0 2-08 00:00: [address] Dose Unknown 2021-0 2-08 00:00: 00 No Dose Unknown 2021-0 2-08 00:00: 00 No metformin 500 mg tablet 2021-0 2-08 00:00: 00 No 1mg Dexilant 30 mg capsule, delayed release 2021-0 2-08 00:00: 00 No 1mg Dose Unknown 2021-0 2-08 00:00: 00 No pravastatin 40 mg tablet 2021-0 2-08 00:00: 00 No 1mg metformin 500 mg tablet 2021-0 2-08 00:00: 00 No 1mg Dexilant 30 mg capsule, delayed release 2021-0 2-08 00:00: 00 No 1mg Dose Unknown 2020-1 1-22 00:00: [address] Dexilant 30 mg capsule, delayed release 2020-1 1-22 00:00: 00 No 1mg Dexilant 30 mg capsule, delayed release 2020-08 00:00: 00 No 1mg Dose Unknown 2020-08 00:00: 00 Yes 40mg Edwin Sherman fluoxetine 60 mg tablet 2020-08 00:00: 00 No 1mg fluoxetine 60 mg tablet 2020-08 00:00: 00 No 1mg Dose Unknown 05-11 00:00: 00 Yes 40mg Edwin Sherman Prozac 40 mg capsule 05-11 00:00: 00 No 1mg Prozac 40 mg capsule 05-11 00:00: 00 No 1mg pravastatin 40 mg tablet 03-29 00:00: 00 Yes 1mg Edwin Sherman fluoxetine 60 mg tablet 03-29 00:00: 00 Yes 1mg Edwin Sherman metformin 500 mg tablet 03-29 00:00: 00 Yes 1mg Edwin Sherman cyclobenzap rine 5 mg tablet 03-29 00:00: 00 Yes 1mg Edwin Sherman Dose Unknown 03-29 00:00: 00 Yes 40mg Edwin Sherman pravastatin 40 mg tablet 03-29 00:00: 00 No 1mg pravastatin 40 mg tablet 03-29 00:00: 00 No 1mg fluoxetine 60 mg tablet 03-29 00:00: 00 No 1mg metformin 500 mg tablet 03-29 00:00: 00 No 1mg cyclobenzap rine 5 mg tablet 03-29 00:00: 00 No 1mg Dexilant 30 mg capsule, delayed release 03-29 00:00: 00 No 1mg fluoxetine 60 mg tablet 03-29 00:00: 00 No 1mg metformin 500 mg tablet 03-29 00:00: 00 No 1mg cyclobenzap rine 5 mg tablet 03-29 00:00: 00 No 1mg Dexilant 30 mg capsule, delayed release 03-29 00:00: 00 No 1mg pravastatin 40 mg tablet 12-04 00:00: 00 Yes 1mg Edwin Sherman metformin 500 mg tablet 12-04 00:00: 00 Yes 1mg Edwin Sherman Dose Unknown 12-04 00:00: 00 Yes 40mg Edwin Sherman Dose Unknown 12-04 00:00: 00 Yes 40mg Edwin Sherman pravastatin 40 mg tablet 12-04 00:00: 00 No 1mg metformin 500 mg tablet 12-04 00:00: 00 No 1mg fluoxetine 40 mg capsule 12-04 00:00: 00 No 1mg Dexilant 30 mg capsule, delayed release 12-04 00:00: 00 No 1mg pravastatin 40 mg tablet 12-04 00:00: 00 No 1mg metformin 500 mg tablet 12-04 00:00: 00 No 1mg fluoxetine 40 mg capsule 12-04 00:00: 00 No 1mg Dexilant 30 mg capsule, delayed release 12-04 00:00: 00 No 1mg pravastatin 40 mg tablet 05-12 00:00: 00 Yes 1mg Edwin Sherman metformin 500 mg tablet 05-12 00:00: 00 Yes 1mg Edwin Sherman Dexilant 30 mg capsule, delayed release 05-12 00:00: 00 Yes 1mg Edwin Sherman fluoxetine 40 mg capsule 05-12 00:00: 00 Yes 1mg Edwin Sherman pravastatin 40 mg tablet 05-12 00:00: 00 No 1mg metformin 500 mg tablet 05-12 00:00: 00 No 1mg Dexilant 30 mg capsule, delayed release 05-12 00:00: 00 No 1mg fluoxetine 40 mg capsule 05-12 00:00: 00 No 1mg pravastatin 40 mg tablet 05-12 00:00: 00 No 1mg metformin 500 mg tablet 05-12 00:00: 00 No 1mg Dexilant 30 mg capsule, delayed release 05-12 00:00: 00 No 1mg fluoxetine 40 mg capsule 05-12 00:00: 00 No 1mg pravastatin 40 mg tablet 01-21 00:00: 00 Yes 1mg Edwin Sherman metformin 500 mg tablet 01-21 00:00: 00 Yes 1mg Edwin Sherman fluoxetine 40 mg capsule 01-21 00:00: 00 Yes 1mg Edwin Sherman Dexilant 30 mg capsule, delayed release 01-21 00:00: 00 Yes 1mg Edwin Sherman pravastatin 40 mg tablet 01-21 00:00: 00 No 1mg metformin 500 mg tablet 01-21 00:00: 00 No 1mg fluoxetine 40 mg capsule 01-21 00:00: 00 No 1mg Dexilant 30 mg capsule, delayed release 01-21 00:00: 00 No 1mg pravastatin 40 mg tablet 01-21 00:00: 00 No 1mg metformin 500 mg tablet 01-21 00:00: 00 No 1mg fluoxetine 40 mg capsule 01-21 00:00: 00 No 1mg Dexilant 30 mg capsule, delayed release 01-21 00:00: 00 No 1mg Dose Unknown 11-05 00:00: 00 Yes Edwin Sherman diclofenac 1 % topical gel 318 00:00: 00 No 1% Dose Unknown 318 00:00: 00 No Dose Unknown 2-03 00:00: 00 Yes 40mg Edwin Sherman Zyrtec 10 mg tablet 09-23 00:00: 00 No 1mg Zyrtec 10 mg tablet 09-23 00:00: 00 No 1mg loratadine 10 mg tablet 2018-08 00:00: 00 Yes 1mg Edwin Sherman Dose Unknown 2018-08 00:00: 00 Yes 40gram Edwin Sherman loratadine 10 mg tablet 2018-08 00:00: 00 No 1mg Miralax 17 gram oral powder packet 2018-08 00:00: 00 No 1gram loratadine 10 mg tablet 2018-08 00:00: 00 No 1mg Miralax 17 gram oral powder packet 2018-08 00:00: 00 No 1gram pravastatin 40 mg tablet 2018-08 00:00: 00 Yes 1mg Edwin Sherman metformin 500 mg tablet 2018-08 00:00: 00 Yes 1mg Edwin Sherman Dexilant 30 mg capsule, delayed release 2018-08 00:00: 00 Yes 1mg Edwin Sherman fluoxetine 40 mg capsule 2018-08 00:00: 00 Yes 1mg Edwin Sherman pravastatin 40 mg tablet 2018-08 00:00: 00 No 1mg metformin 500 mg tablet 2018-08 00:00: 00 No 1mg Dexilant 30 mg capsule, delayed release 2018-08 00:00: 00 No 1mg fluoxetine 40 mg capsule 2018-08 00:00: 00 No 1mg pravastatin 40 mg tablet 2018-08 00:00: 00 No 1mg metformin 500 mg tablet 2018-08 00:00: 00 No 1mg Dexilant 30 mg capsule, delayed release 2018-08 00:00: 00 No 1mg fluoxetine 40 mg capsule 2018-08 00:00: 00 No 1mg pravastatin 40 mg tablet 04-24 00:00: 00 Yes 1mg Edwin Sherman metformin 500 mg tablet 04-24 00:00: 00 Yes 1mg Edwin Sherman fluoxetine 40 mg capsule 04-24 00:00: 00 Yes 1mg Edwin Sherman pravastatin 40 mg tablet 04-24 00:00: 00 No 1mg metformin 500 mg tablet 04-24 00:00: 00 No 1mg fluoxetine 40 mg capsule 04-24 00:00: 00 No 1mg pravastatin 40 mg tablet 04-24 00:00: 00 No 1mg metformin 500 mg tablet 04-24 00:00: 00 No 1mg fluoxetine 40 mg capsule 04-24 00:00: 00 No 1mg pravastatin 40 mg tablet 04-16 00:00: 00 Yes 1mg Edwin Sherman metformin 500 mg tablet 04-16 00:00: 00 Yes 1mg Edwin Sherman fluoxetine 40 mg capsule 04-16 00:00: 00 Yes 1mg Edwin Sherman pravastatin 40 mg tablet 04-16 00:00: 00 No 1mg metformin 500 mg tablet 04-16 00:00: 00 No 1mg fluoxetine 40 mg capsule 04-16 00:00: 00 No 1mg pravastatin 40 mg tablet 04-16 00:00: 00 No 1mg metformin 500 mg tablet 04-16 00:00: 00 No 1mg fluoxetine 40 mg capsule 04-16 00:00: 00 No 1mg pravastatin 40 mg tablet 01-02 00:00: 00 Yes 1mg Edwin Sherman metformin 500 mg tablet 01-02 00:00: 00 Yes 1mg Edwin Sherman fluticasone propionate 50 mcg/actuati on nasal spray,suspe nsion 01-02 00:00: 00 Yes 2mcg/ac tuation Edwin Sherman fluoxetine 40 mg capsule 01-02 00:00: 00 Yes 1mg Edwin Sherman pravastatin 40 mg tablet 01-02 00:00: 00 No 1mg metformin 500 mg tablet 01-02 00:00: 00 No 1mg fluticasone propionate 50 mcg/actuati on nasal spray,suspe nsion 01-02 00:00: 00 No 2mcg/ac tuation fluoxetine 40 mg capsule 01-02 00:00: 00 No 1mg pravastatin 40 mg tablet 01-02 00:00: 00 No 1mg metformin 500 mg tablet 01-02 00:00: 00 No 1mg fluticasone propionate 50 mcg/actuati on nasal spray,suspe nsion 01-02 00:00: 00 No 2mcg/ac tuation fluoxetine 40 mg capsule 01-02 00:00: 00 No 1mg pravastatin 40 mg tablet 10-03 00:00: 00 Yes 1mg Edwin Sherman metformin 500 mg tablet 10-03 00:00: 00 Yes 2mg Edwin Sherman ranitidine 150 mg tablet 10-03 00:00: 00 Yes 1mg Edwin Sherman fluoxetine 20 mg capsule 10-03 00:00: 00 Yes 1mg Edwin Sherman gabapentin 300 mg capsule 10-03 00:00: 00 Yes 1mg Edwin Sherman pravastatin 40 mg tablet 10-03 00:00: 00 No 1mg metformin 500 mg tablet 10-03 00:00: 00 No 2mg ranitidine 150 mg tablet 10-03 00:00: 00 No 1mg metformin 500 mg tablet 10-03 00:00: 00 No 1mg fluoxetine 20 mg capsule 10-03 00:00: 00 No 1mg gabapentin 300 mg capsule 10-03 00:00: 00 No 1mg pravastatin 40 mg tablet 10-03 00:00: 00 No 1mg metformin 500 mg tablet 10-03 00:00: 00 No 2mg ranitidine 150 mg tablet 10-03 00:00: 00 No 1mg metformin 500 mg tablet 10-03 00:00: 00 No 1mg fluoxetine 20 mg capsule 10-03 00:00: 00 No 1mg gabapentin 300 mg capsule 10-03 00:00: 00 No 1mg Immunizations Ordered Immunization Name Filled Immunization Name Date Status Comments Source influenza, seasonal vaccine, quadrivalent, adjuvanted, .5mL dose, preservative-free influenza, seasonal vaccine, quadrivalent, adjuvanted, .5mL dose, preservative-free 2024-05-21 00:00:00 Completed Edwin Sherman Prevnar 20 Prevnar 20 2022-11-16 00:00:00 Romeo Sherman influenza, seasonal vaccine, quadrivalent, adjuvanted, .5mL dose, preservative-free influenza, seasonal vaccine, quadrivalent, adjuvanted, .5mL dose, preservative-free 2022-05-18 00:00:00 Romeo Sherman influenza, seasonal vaccine, quadrivalent, adjuvanted, .5mL dose, preservative-free 2022-05-18 00:00:00 Completed Moderna COVID-19 Vaccine Moderna COVID-19 Vaccine 2021-08-09 00:00:00 Romeo Sherman Moderna COVID-19 Vaccine 2021-08-09 00:00:00 Completed Moderna COVID-19 Vaccine 2021-08-09 00:00:00 Completed Moderna COVID-19 Vaccine Moderna COVID-19 Vaccine 2020-12-02 00:00:00 Romeo Sherman Moderna COVID-19 Vaccine 2020-12-02 00:00:00 Completed Moderna COVID-19 Vaccine 2020-12-02 00:00:00 Completed Moderna COVID-19 Vaccine Moderna COVID-19 Vaccine 2020-10-23 00:00:00 Completed Edwinjamir Sherman Moderna COVID-19 Vaccine 2020-10-23 00:00:00 Completed Moderna COVID-19 Vaccine 2020-10-23 00:00:00 Completed Influenza, seasonal, inj Influenza, seasonal, inj 2019-07-10 00:00:00 Completed Edwin Carla Sherman Pneumococcal conjugate P Pneumococcal conjugate P 2019-07-10 00:00:[address] Influenza, seasonal, inj 2019-07-10 00:00:00 Completed Pneumococcal conjugate P 2019-07-10 00:00:00 Completed Influenza, seasonal, inj 2019-07-10 00:00:00 Completed Pneumococcal conjugate P 2019-07-10 00:00:00 Completed Vital Signs Vital Name Observation Time Observation Value Comments S ource Height Measured 2024-05-21 10:50:[address] Body Temperature 2024-05-21 10:50:[address] Heart Rate 2024-05-21 10:50:00 89.00 /min Bonny [address] Respiratory Rate 2024-05-21 10:50:00 18.00 /min [facility] F [address] BP Systolic 2024-05-21 10:50:00 130 mm[Hg] Step hen [address] BP Diastolic 2024-05-21 10:50:00 79 mm[Hg] Juan Manuel phen [address] Weight Measured 2024-05-21 10:50:[address] BP Systolic 2022-11-22 08:44:00 117 mm[Hg] Step hen [address] BP Diastolic 2022-11-22 08:44:00 71 mm[Hg] Juan Manuel phen [address] Weight Measured 2022-11-22 08:44:[address] Height Measured 2022-11-22 08:44:[address] Body Temperature 2022-11-22 08:44:[address] Heart Rate 2022-11-22 08:44:00 95.00 /min [facility] Respiratory Rate 2022-11-22 08:44:00 19.00 /min [facility] F [address] BP Systolic 2022-11-14 09:28:00 110 mm[Hg] Step hen [address] BP Diastolic 2022-11-14 09:28:00 78 mm[Hg] Juan Manuel phen [address] Weight Measured 2022-11-14 09:28:[address] Height Measured 2022-11-14 09:28:[address] Body Temperature 2022-11-14 09:28:[address] Heart Rate 2022-11-14 09:28:00 69.00 /min [facility] Respiratory Rate 2022-11-14 09:28:00 18.00 /min [facility] F [address] BP Systolic 2022-05-24 09:20:00 144 mm[Hg] Step hen [address] BP Diastolic 2022-05-24 09:20:00 87 mm[Hg] Juan Manuel phen [address] Weight Measured 2022-05-24 09:20:[address] Height Measured 2022-05-24 09:20:[address] Body Temperature 2022-05-24 09:20:[address] Heart Rate 2022-05-24 09:20:00 80.00 /min [address] Respiratory Rate 2022-05-24 09:20:00 18.00 /min [facility] F [address] BP Systolic 2022-05-18 08:30:00 117 mm[Hg] Step hen [address] BP Diastolic 2022-05-18 08:30:00 72 mm[Hg] Juan Manuel phen [address] Weight Measured 2022-05-18 08:30:[address] Height Measured 2022-05-18 08:30:[address] Body Temperature 2022-05-18 08:30:[address] Heart Rate 2022-05-18 08:30:[address] Respiratory Rate 2022-05-18 08:30:[address] BP Systolic 2022-04-06 09:25:00 129 mm[Hg] Step hen [address] BP Diastolic 2022-04-06 09:25:00 74 mm[Hg] Juan Manuel phen [address] Weight Measured 2022-04-06 09:25:[address] Height Measured 2022-04-06 09:25:[address] Body Temperature 2022-04-06 09:25:[address] Heart Rate 2022-04-06 09:25:00 69.00 /min [address] Respiratory Rate 2022-04-06 09:25:00 18.00 /min [facility] F [address] BP Systolic 2021-12-23 15:39:[address] BP Diastolic 2021-12-23 15:39:[address] Weight Measured 2021-12-23 15:39:[address] Height Measured 2021-12-23 15:39:[address] Body Temperature 2021-12-23 15:39:[address] Heart Rate 2021-12-23 15:39:[address] Respiratory Rate 2021-12-23 15:39:[address] BP Systolic 2021-11-17 09:30:00 113 mm[Hg] Step hen [address] BP Diastolic 2021-11-17 09:30:00 76 mm[Hg] Juan Manuel phen [address] Weight Measured 2021-11-17 09:30:[address] Height Measured 2021-11-17 09:30:[address] Body Temperature 2021-11-17 09:30:[address] Heart Rate 2021-11-17 09:30:00 77.00 /min [address] Respiratory Rate 2021-11-17 09:30:00 16.00 /min [facility] [address] BP Systolic 2021-11-09 09:00:00 115 mm[Hg] Step hen [address] BP Diastolic 2021-11-09 09:00:00 68 mm[Hg] Juan Manuel phen [address] Weight Measured 2021-11-09 09:00:[address] Height Measured 2021-11-09 09:00:[address] Body Temperature 2021-11-09 09:00:00 98.20 degrees Edwin Carla Sherman Heart Rate 2021-11-09 09:00:00 84.00 /min [address] Respiratory Rate 2021-11-09 09:00:00 16.00 /min Edwinjamir Sherman BP Systolic 2021-11-02 09:10:00 109 mm[Hg] Step hen Carla Sherman BP Diastolic 2021-11-02 09:10:00 72 mm[Hg] Juan Manuel Sherman Weight Measured 2021-11-02 09:10:00 175.80 pounds Edwin Sherman Height Measured 2021-11-02 09:10:00 60.43 inches Edwin Sherman Body Temperature 2021-11-02 09:10:00 98.20 degrees Edwin Sherman Heart Rate 2021-11-02 09:10:00 86.00 /min Bonny en Carla Sherman Respiratory Rate 2021-11-02 09:10:00 17.00 /min Edwin Sherman BP Systolic 2021-09-30 13:55:00 106 mm[Hg] BP [...] /min Respiratory Rate 2020-10-12 10:07:00 16.00 /min Plan of Care Planned Activity Planned Date Details Comments Source Goal Plan of Care Note [code = 43750-6] Goal Plan of Care Note [code = 17987-9] Goal Plan of Care Note [code = 50729-0] Goal Plan of Care Note [code = 64893-9] Goal Plan of Care Note [code = 14980-0] Goal Plan of Care Note [code = 79149-4] Goal Plan of Care Note [code = 88425-9] Goal Plan of Care Note [code = 65402-9] Goal Plan of Care Note [code = 55955-8] Goal Plan of Care Note [code = 01147-0] Goal Plan of Care Note [code = 40246-1] Goal Plan of Care Note [code = 13417-8] Goal Plan of Care Note [code = 68205-4] Goal Plan of Care Note [code = 39945-4] Goal Plan of Care Note [code = 77551-9] Goal Plan of Care Note [code = 13661-3] Goal Plan of Care Note [code = 81932-7] Goal Plan of Care Note [code = 24906-8] Goal Plan of Care Note [code = 59057-4] Goal Plan of Care Note [code = 06835-8] Goal Plan of Care Note [code = 77559-5] Goal Plan of Care Note [code = 63984-1] Goal Plan of Care Note [code = 57409-4] Goal Plan of Care Note [code = 81211-0] Goal Plan of Care Note [code = 39826-7] Goal Plan of Care Note [code = 07963-6] Goal Plan of Care Note [code = 74912-8] Goal Plan of Care Note [code = 10702-4] Goal Plan of Care Note [code = 53577-8] Goal Plan of Care Note [code = 19730-1] Goal Plan of Care Note [code = 27234-6] Goal Plan of Care Note [code = 95305-8] Goal Plan of Care Note [code = 09436-9] Goal Plan of Care Note [code = 74695-2] Goal Plan of Care Note [code = 02786-6] Goal Plan of Care Note [code = 67952-6] Goal Plan of Care Note [code = 22437-1] Goal Plan of Care Note [code = 22819-9] Goal Plan of Care Note [code = 49979-6] Goal Plan of Care Note [code = 05223-2] Goal Plan of Care Note [code = 32026-3] Goal Plan of Care Note [code = 82492-4] Goal Plan of Care Note [code = 26760-7] Goal Plan of Care Note [code = 38395-4] Goal Plan of Care Note [code = 90407-9] Goal Plan of Care Note [code = 32602-5] Goal Plan of Care Note [code = 43826-4] Goal Plan of Care Note [code = 45620-4] Goal Plan of Care Note [code = 97381-1] Goal Plan of Care Note [code = 95709-4] Goal Plan of Care Note [code = 33914-5] Goal Plan of Care Note [code = 71962-5] Goal Plan of Care Note [code = 53053-5] Goal Plan of Care Note [code = 16690-6] Goal Plan of Care Note [code = 89716-3] Goal Plan of Care Note [code = 57788-8] Goal Plan of Care Note [code = 25185-4] Goal Plan of Care Note [code = 90821-0] Goal Plan of Care Note [code = 77815-9] Goal Plan of Care Note [code = 24776-2] Goal Plan of Care Note [code = 72618-2] Encounters Start Date/Time End Date/Time Encounter Type Admission Type Attending Clinicians Care Facility Care Department Encounter ID Source 2024-05-29 12:55:59 2024-05-29 12:55:59 Outpatient 0 [facility] [id number] [facility] 2024-05-29 11:00:00 2024-05-29 11:00:00 Outpatient 0 [facility] [id number] [facility] 2024-05-28 10:45:00 2024-05-28 10:45:00 Outpatient Ying Schafer [facility] [id number] [facility] 2024-05-27 13:52:39 2024-05-27 13:52:39 Outpatient 0 [facility] [id number] [facility] 2024-05-23 10:35:02 2024-05-23 10:35:02 Outpatient 0 [facility] [id number] [facility] 2024-05-21 10:37:39 2024-05-21 10:37:39 Outpatient [facility] [id number] [facility] 2024-05-21 00:00:00 2024-05-21 00:00:00 Outpatient Visit [facility] [id number] [facility] 2024-05-20 11:43:15 2024-05-20 11:43:15 Outpatient 0 [facility] [id number] [facility] 2024-05-20 11:00:00 2024-05-20 11:00:00 Outpatient 0 [facility] [id number] [facility] 2024-05-15 11:11:57 2024-05-15 11:11:57 Outpatient 0 [facility] [id number] [facility] 2024-05-15 10:30:00 2024-05-15 10:30:00 Outpatient 0 [facility] [id number] [facility] 2024-05-14 11:45:00 2024-05-14 11:45:00 Outpatient Ying Schafer [facility] [id number] [facility] 2024-05-14 08:31:52 2024-05-14 08:31:52 Outpatient 0 [facility] [id number] [facility] 2024-05-13 10:47:27 2024-05-13 10:47:27 Outpatient 0 [facility] [id number] [facility] 2022-11-22 08:39:07 2022-11-22 08:39:07 Outpatient S[facility] [id number] [facility] 2022-11-14 09:24:21 2022-11-14 09:24:21 Outpatient SFA [facility] [id number] Edwin [facility] 2022-05-24 08:51:31 2022-05-24 08:51:31 Outpatient SFA [facility] [id number] Edwin [facility] 2022-05-18 00:00:00 2022-05-18 00:00:00 Outpatient Visit [id number] 2022-04-06 00:00:00 2022-04-06 00:00:00 Outpatient Visit [id number] Results Test Description Test Time Test Comments Results Result Co mments Source COMPREHENSIVE METABOLIC [id number] 05:03:49* Test Item Value Reference Range Interpretation Comme nts GLUCOSE (test code = 2217) 120 MG/DL 70-99 H BUN (test code = 2208) 28 MG/DL 8-23 H CREATININE (test code = 2214) 0.82 MG/DL 0.60-1.30 eGFR (2020 CKD-EPI) (test co de = 75408) 74 ML/MIN/1.73 >60 CALC BUN/CREAT (test code = 2234) 34 RATIO 6-28 H SODIUM (test code = 2230) 143 MEQ/L 133-146 POTASSIUM (test code = 2227) 4.2 MEQ/L 3.5-5.4 CHLORIDE (test code = 2214) 106 MEQ/L 95-107 CARBON DIOXIDE (test code = 2205) 24 MEQ/L 19-31 CALCIUM (test code = 2208) 10.1 MG/DL 8.5-10.5 PROTEIN, TOTAL (test code = 2228) 6.7 G/DL 6.1-8.3 ALBUMIN (test code = 2200) 4.6 G/DL 3.5-5.2 CALC GLOBULIN (test code = 2239) 2.1 G/DL 1.9-3.7 CALC A/G RATIO (test code = 2233) 2.2 RATIO 1.0-2.6 BILIRUBIN, TOTAL (test code = 2206) 0.3 MG/DL <=1.2 ALKALINE PHOSPHATASE (test code = 2203) 90 U/L 40-142 AST (test code = 2217) 17 U/L 9-40 ALT (test code = 9) 17 U/L 5-40 HEMOGLOBIN [id number] 04:39:57* Test Item Value Reference Range Interpretation Comme nts HEMOGLOBIN A1c (test code = 55191) 6.3 % 4.2-5.6 H [employer] GUIDELINES FOR HGB A1C: PREDIABETES/INCREASED RISK . . . . . . . 5.7-6.4% DIAGNOSIS OF DIABETES . . . . . . . . . >=6.5% WITH CONFIRMATION OR APPROPRIATE SYMPTOMS NOTE: ASSAY MAY BE AFFECTED BY HEMOGLOBINOPATHIES (SICKLE CELL ANEMIA, S-C DISEASE, OTHERS) OR ARTIFICIALLY LOWERED BY DECREASED RED CELL SURVIVAL (HEMOLYTIC ANEMIAS, BLOOD LOSS, ETC.). CONSIDER ALTERNATE TESTING OR LABORATORY CONSULTATION. ALBUMIN/CREATININE RATIO, URINE, [id number] 04:33:14* Test Item Value Reference Range Interpretation Comme nts CREATININE, URINE, CONC. (test code = 2071) 269.0 MG/DL NOT ESTAB ALBUMIN, URINE, RANDOM (test code = 29339) 0.9 MG/DL NOT ESTAB CALC ALBUMIN/CREAT, RND (test code = 20396) 3 MG/G <30 Note: Albumin/Cr eatinine ratio reference interval reflects ADA and NKF guidelines. UNLESS OTHERWISE INDICATED, ALL TESTING PERFORMED AT [facility] [address] [place] [address] CORONER/MEDICAL EXAMINER: SAPNA LEYVA M.D. [facility] NUMBER [id number] [facility] [place]. [id number] COMPREHENSIVE METABOLIC [id number] 06:04:13* Test Item Value Reference Range Interpretation Comme nts GLUCOSE (test code = 2216) 137 MG/DL 70-99 H BUN (test code = 2207) 27 MG/DL 8-23 H CREATININE (test code = 2214) 0.92 MG/DL 0.60-1.30 eGFR (2020 CKD-EPI) (test code = 29926) 65 ML/MIN/1.73 >60 CALC BUN/CREAT (test code = 2235) 29 RATIO 6-28 H SODIUM (test code = 223) 140 MEQ/L 133-146 POTASSIUM (test code = 2228) 4.4 MEQ/L 3.5-5.4 CHLORIDE (test code = 2215) 102 MEQ/L 95-107 CARBON DIOXIDE (test code = 2206) 25 MEQ/L 19-31 CALCIUM (test code = 2209) 10.2 MG/DL 8.5-10.5 PROTEIN, TOTAL (test code = 222) 7.0 G/DL 6.1-8.3 ALBUMIN (test code = 2200) 4.8 G/DL 3.5-5.2 CALC GLOBULIN (test code = 2240) 2.2 G/DL 1.9-3.7 CALC A/G RATIO (test code = 2234) 2.2 RATIO 1.0-2.6 BILIRUBIN, TOTAL (test code = 2206) 0.3 MG/DL See_Comment [Automated me ssage] The system which generated this result transmitted reference range: <=1.2. The reference range was not used to interpret this result as normal/abnormal. ALKALINE PHOSPHATASE (test code = 4) 91 U/L 40-142 AST (test code = 2218) 14 U/L 9-40 ALT (test code = 2219) 12 U/L 5-40 TSH, THIRD [id number] 05:39:45* Test Item Value Reference Range Interpretation Comme nts TSH, THIRD GENERATION (test code = 2821) 2.510 UIU/ML 0.400-4.100 [facility] has impo rtant pathology staff changes effective 10/19/2022. New pathology staff will provide uninterrupted, excellent patient care and clinical consultation. See URL: [email or web address]. UNLESS OTHERWISE INDICATED, ALL TESTING PERFORMED AT [facility] [address] [place] [address] CORONER/MEDICAL EXAMINER: SAPNA LEYVA M.D. [place] NUMBER [id number] [facility] [place]. [id number] CBC W/AUTO DIFF WITH [id number] 02:39:45* Test Item Value Reference Range Interpretation Comme nts WBC (test code = 1001) 5.9 K/UL 3.5-11.0 RBC (test code = 1002) 4.08 M/UL 3.80-5.40 HEMOGLOBIN (test code = 1003) 12.0 G/DL 11.5-15.5 HEMATOCRIT (test code = 1004) 35.9 % 34.0-45.0 MCV (test code = 1005) 88.0 fL 80.0-99.0 MCH (test code = 1006) 29.4 PG 25.0-33.0 MCHC (test code = 1007) 33.4 G/DL 31.0-36.0 RDW (test code = 1038) 13.7 % 11.5-15.0 NEUTROPHILS (test code = 1008) 73.3 % LYMPHOCYTES (test code = 1010) 18.9 % MONOCYTES (test code = 1011) 5.6 % EOSINOPHILS (test code = 1012) 1.7 % BASOPHILS (test code = 1013) 0.3 % IMMATURE GRANULOCYTES (test code = 1036) 0.2 % NUCLEATED RBCS (test code = 1065) 0.0 /100 WBC'S See_Comment [Automated Profinda ge] The system which generated this result transmitted reference range: 0.0. The reference range was not used to interpret this result as normal/abnormal. PLATELET COUNT (test code = 1015) 237 K/UL 130-400 ABSOLUTE NEUTROPHILS (test code = 1066) 4.29 K/UL 1.50-7.50 ABSOLUTE LYMPHOCYTES (test code = 1067) 1.11 K/UL 1.00-4.00 ABSOLUTE MONOCYTES (test code = 1068) 0.33 K/UL 0.20-1.00 ABSOLUTE EOSINOPHILS (test code = 1040) 0.10 K/UL 0.00-0.50 ABSOLUTE BASOPHILS (test code = 1069) 0.02 K/UL 0.00-0.20 ABS IMMATURE GRANULOCYTES (test code = 1020) 0.01 K/UL 0.00-0.10 ABS NUCLEATED RBCS (test code = 81483) 0.00 K/UL 0.00-0.11 TSH, THIRD [id number] 00:00:00* Test Item Value Reference Range Interpretation Comme nts TSH, THIRD GENERATION (test code = 2821) 2.510 UIU/ML Edwin Aguirre LaneCBC W/AUTO [id number] 00:00:00* Test Item Value Reference Range Interpretation Comme nts WBC (test code = 1001) 5.9 K/UL RBC (test code = 1002) 4.08 M/UL HEMOGLOBIN (test code = 1003) 12.0 G/DL HEMATOCRIT (test code = 1004) 35.9 % MCV (test code = 1005) 88.0 fL MCH (test code = 1006) 29.4 PG MCHC (test code = 1007) 33.4 G/DL RDW (test code = 1038) 13.7 % NEUTROPHILS (test code = 1008) 73.3 % LYMPHOCYTES (test code = 1010) 18.9 % MONOCYTES (test code = 1011) 5.6 % EOSINOPHILS (test code = 1012) 1.7 % BASOPHILS (test code = 1013) 0.3 % IMMATURE GRANULOCYTES (test code = 1036) 0.2 % NUCLEATED RBCS (test code = 1065) 0.0 /100WBC'S PLATELET COUNT (test code = 1015) 237 K/UL ABSOLUTE NEUTROPHILS (test c ode = 1066) 4.29 K/UL ABSOLUTE LYMPHOCYTES (test c ode = 1067) 1.11 K/UL ABSOLUTE MONOCYTES (test cod e = 1068) 0.33 K/UL ABSOLUTE EOSINOPHILS (test c ode = 1040) 0.10 K/UL ABSOLUTE BASOPHILS (test cod e = 1069) 0.02 K/UL ABS IMMATURE GRANULOCYTES (t est code = 1020) 0.01 K/UL ABS NUCLEATED RBCS (test cod e = 22741) 0.00 K/UL Edwin ShermanCOMPREHENSIVE METABOLIC [id number] 00:00:00* Test Item Value Reference Range Interpretation Comme nts GLUCOSE (test code = 2217) 137 MG/DL BUN (test code = 2208) 27 MG/DL CREATININE (test code = 2214) 0.92 MG/DL eGFR (2020 CKD-EPI) (test co de = 67752) 65 ML/MIN/1.73 CALC BUN/CREAT (test code = 2235) 29 RATIO SODIUM (test code = 2231) 140 MEQ/L POTASSIUM (test code = 2228) 4.4 MEQ/L CHLORIDE (test code = 2215) 102 MEQ/L CARBON DIOXIDE (test code = 2206) 25 MEQ/L CALCIUM (test code = 2209) 10.2 MG/DL PROTEIN, TOTAL (test code = 2229) 7.0 G/DL ALBUMIN (test code = 2201) 4.8 G/DL CALC GLOBULIN (test code = 2240) 2.2 G/DL CALC A/G RATIO (test code = 2234) 2.2 RATIO BILIRUBIN, TOTAL (test code = 2207) 0.3 MG/DL ALKALINE PHOSPHATASE (test code = 2204) 91 U/L AST (test code = 2218) 14 U/L ALT (test code = 2219) 12 U/L Edwin ShermanHEMOGLOBIN [id number] 04:07:16* Test Item Value Reference Range Interpretation Comme nts HEMOGLOBIN A1c (test code = 47933) 6.2 % 4.2-5.6 H [employer]IATION GUIDELINES FOR HGB A1C: PREDIABETES/INCREASED RISK . . . . . . . 5.7-6.4% DIAGNOSIS OF DIABETES . . . . . . . . . >=6.5% WITH CONFIRMATION OR APPROPRIATE SYMPTOMS NOTE: ASSAY MAY BE AFFECTED BY HEMOGLOBINOPATHIES (SICKLE CELL ANEMIA, S-C DISEASE, OTHERS) OR ARTIFICIALLY LOWERED BY DECREASED RED CELL SURVIVAL (HEMOLYTIC ANEMIAS, BLOOD LOSS, ETC.). CONSIDER ALTERNATE TESTING OR LABORATORY CONSULTATION. LIPID [id number] 02:39:07* Test Item Value Reference Range Interpretation Comme nts CHOLESTEROL (test code = 2210) 199 MG/DL <200 TRIGLYCERIDES (test code = 2232) 120 MG/DL <150 HDL CHOLESTEROL (test code = 2220) 72 MG/DL >39 CALC LDL CHOL (test code = 2237) 105 MG/DL <100 H NOTE: CALCULATED LDL IS BASED ON TASHA-BALLESTEROS METHOD WHICHINCLUDES ADJUSTABLE TRIGLYCERIDE:VLDL CHOLESTEROL RATIO.THIS FACTOR VARIES BY MEASURED TRIGLYCERIDE AND NON-HDLCHOLESTEROL CONCENTRATIONS WITH INCREASED CALCULATED LDL SEENIN HIGHER TRIGLYCERIDE OR LOWER NON-HDL SPECIMENS. FOR MOREINFORMATION, SEE CLIENT ANNOUNCEMENT AT [email or web address] RISK RATIO LDL/HDL (test code = 2238) 1.46 RATIO <3.22 [facility] has i mportant pathology staff changes effective 10/19/2022. New pathology staff will provide uninterrupted, excellent patient care and clinical consultation. See URL: [email or web address]. UNLESS OTHERWISE INDICATED, ALL TESTING PERFORMED AT [facility] [address] [place] [address] CORONER/MEDICAL EXAMINER: SAPNA LEYVA M.D. CLIA NUMBER [id number] [facility] [place]. [id number] HEMOGLOBIN [id number] 00:00:00* Test Item Value Reference Range Interpretation Comme nts HEMOGLOBIN A1c (test code = 15405) 6.2 % Edwin ShermanLIPID [id number] 00:00:00* Test Item Value Reference Range Interpretation Comme nts CHOLESTEROL (test code = 2210) 199 MG/DL TRIGLYCERIDES (test code = 2232) 120 MG/DL HDL CHOLESTEROL (test code = 2220) 72 MG/DL CALC LDL CHOL (test code = 2237) 105 MG/DL RISK RATIO LDL/HDL (test cod e = 2238) 1.46 RATIO Edwin ShermanHEMOGLOBIN [id number] 19:53:47* Test Item Value Reference Range Interpretation Comme nts HEMOGLOBIN A1c (test code = 32562) 6.0 % 4.2-5.6 H UNLESS OTHERWISE INDICATED, [facility] [address] [place] [address] CORONER/MEDICAL EXAMINER: YING CHAVEZ M.D. CLIA NUMBER [id number] [place]. [id number] HEMOGLOBIN [id number] 00:00:00* Test Item Value Reference Range Interpretation Comme nts HEMOGLOBIN A1c (test code = 37956) 6.0 % HEMOGLOBIN [id number] 00:00:00* Test Item Value Reference Range Interpretation Comme nts HEMOGLOBIN A1c (test code = 61554) 6.0 % HEMOGLOBIN [id number] 00:00:00* Test Item Value Reference Range Interpretation Comme nts HEMOGLOBIN A1c (test code = 17488) 6.0 % Edwin ShermanVITAMIN [id number] 05:55:49* Test Item Value Reference Range Interpretation Comme nts VITAMIN B-12 (test code = 2840) 420 PG/ML 200-950 UNLESS OTHERWISE INDICATED, [facility] [address] [place] [address] CORONER/MEDICAL EXAMINER: YING CHAVEZ M.D. CLIA NUMBER [id number] [place]. [id number] 04:55:41* Test Item Value Reference Range Interpretation Comme nts RPR RESULT (test code = 3501) NON-REACTIVE NON-REACTIVE RPR TITER (test code = 3500) NOT INDIC. TITER NOT INDIC. [id number] 00:00:00* Test Item Value Reference Range Interpretation Comme nts RPR RESULT (test code = 3501) NON-REACTIVE RPR TITER (test code = 3500) NOT INDIC. TITER VITAMIN [id number] 00:00:00* Test Item Value Reference Range Interpretation Comme nts VITAMIN B-12 (test code = 2840) 420 PG/ML [id number] 00:00:00* Test Item Value Reference Range Interpretation Comme nts RPR RESULT (test code = 3501) NON-REACTIVE RPR TITER (test code = 3500) NOT INDIC. TITER VITAMIN [id number] 00:00:00* Test Item Value Reference Range Interpretation Comme nts VITAMIN B-12 (test code = 2840) 420 PG/ML [id number] 00:00:00* Test Item Value Reference Range Interpretation Comme nts RPR RESULT (test code = 3501) NON-REACTIVE RPR TITER (test code = 3500) NOT INDIC. TITER Edwin ShermanVITAMIN [id number] 00:00:00* Test Item Value Reference Range Interpretation Comme cornelius VITAMIN B-12 (test code = 2840) 420 PG/ML Edwin ShermanHEMOGLOBIN [id number] 05:01:16* Test Item Value Reference Range Interpretation Comme cornelius HEMOGLOBIN A1c (test code = 45118) 6.2 % 4.2-5.6 H LIPID [id number] 04:11:53* Test Item Value Reference Range Interpretation Comme nts CHOLESTEROL (test code = 2210) 183 MG/DL <200 TRIGLYCERIDES (test code = 2232) 97 MG/DL <150 HDL CHOLESTEROL (test code = 222) 67 MG/DL >39 CALC LDL CHOL (test code = 2237) 97 MG/DL <100 NOTE: CALCULATED LDL IS BASED ON TASHA-BALLESTEROS METHOD WHICHINCLUDES ADJUSTABLE TRIGLYCERIDE:VLDL CHOLESTEROL RATIO.THIS FACTOR VARIES BY MEASURED TRIGLYCERIDE AND NON-HDLCHOLESTEROL CONCENTRATIONS WITH INCREASED CALCULATED LDL SEENIN HIGHER TRIGLYCERIDE OR LOWER NON-HDL SPECIMENS. FOR MOREINFORMATION, SEE CLIENT ANNOUNCEMENT AT [email or web address] RISK RATIO LDL/HDL (test code = 2238) 1.45 RATIO <3.22 COMPREHENSIVE METABOLIC [id number] 04:11:53* Test Item Value Reference Range Interpretation Comme nts GLUCOSE (test code = 2216) 98 MG/DL 70-99 BUN (test code = 2207) 27 MG/DL 8-23 H CREATININE (test code = 2213) 0.78 MG/DL 0.60-1.30 eGFR (2020 CKD-EPI) (test code = 02436) 80 ML/MIN/1.73 >60 CALC BUN/CREAT (test code = 2235) 35 RATIO 6-28 H SODIUM (test code = 2230) 141 MEQ/L 133-146 POTASSIUM (test code = 2227) 4.3 MEQ/L 3.5-5.4 CHLORIDE (test code = 2214) 101 MEQ/L 95-107 CARBON DIOXIDE (test code = 2205) 24 MEQ/L 19-31 CALCIUM (test code = 2208) 10.0 MG/DL 8.5-10.5 PROTEIN, TOTAL (test code = 2229) 7.1 G/DL 6.1-8.3 ALBUMIN (test code = 2201) 4.7 G/DL 3.5-5.2 CALC GLOBULIN (test code = 2240) 2.4 G/DL 1.9-3.7 CALC A/G RATIO (test code = 2234) 2.0 RATIO 1.0-2.6 BILIRUBIN, TOTAL (test code = 2207) 0.4 MG/DL See_Comment [Automated me ssage] The system which generated this result transmitted reference range: <=1.2. The reference range was not used to interpret this result as normal/abnormal. ALKALINE PHOSPHATASE (test code = 2204) 81 U/L 40-142 AST (test code = 2218) 14 U/L 9-40 ALT (test code = 2219) 11 U/L 5-40 HEPATITIS PANEL, [id number] 04:00:14* Test Item Value Reference Range Interpretation Comme nts HEPATITIS A IgM (test code = 63414) NON-REACTIVE NON-REACTIVE HEPATITIS B CORE IgM (test code = 4644) NON-REACTIVE NON-REACTIVE HEPATITIS B SURF AG (test code = 2739) NON-REACTIVE NON-REACTIVE HEPATITIS C ANTIBODY (test code = 4675) NON-REACTIVE NON-REACTIVE INTERPRETATION HEPATITIS A: (test code = 2552) (NOTE) Hepatitis A sero logy shows no evidence of acute hepatitis A. INTERPRETATION HEPATITIS B: (test code = 03962) (NOTE) Hepatitis B sero logy shows no evidence of acute hepatitis B andno indication of exposure to hepatitis B virus in the previous alfredito eight months. INTERPRETATION HEPATITIS C: (test code = 62206) (NOTE) Hepatitis C sero logy shows no evidence of exposure to hepatitisC virus at this time. It can take up to 12 months after exposure tothe hepatitis C virus for antibodies to become detectable in the blood in certain patients. UNLESS OTHERWISE INDICATED, ALL TESTING PERFORMED AT[facility] [address] [place] [address] CORONER/MEDICAL EXAMINER: YING CHAVEZ M.D. CLIA NUMBER [id number] [place]. [id number] CBC W/AUTO DIFF WITH [id number] 03:20:55* Test Item Value Reference Range Interpretation Comme nts WBC (test code = 1001) 4.4 K/UL 3.5-11.0 RBC (test code = 1002) 3.87 M/UL 3.80-5.40 HEMOGLOBIN (test code = 1003) 11.5 G/DL 11.5-15.5 HEMATOCRIT (test code = 1004) 34.1 % 34.0-45.0 MCV (test code = 1005) 88.1 fL 80.0-99.0 MCH (test code = 1006) 29.7 PG 25.0-33.0 MCHC (test code = 1007) 33.7 G/DL 31.0-36.0 RDW (test code = 1038) 13.5 % 11.5-15.0 NEUTROPHILS (test code = 1008) 60.0 % LYMPHOCYTES (test code = 1010) 28.0 % MONOCYTES (test code = 1011) 8.3 % EOSINOPHILS (test code = 1012) 3.0 % BASOPHILS (test code = 1013) 0.5 % IMMATURE GRANYLOCYTES (test code = 1036) 0.2 % NUCLEATED RBCS (test code = 1065) 0.0 /100 WBC'S See_Comment [Automated messa ge] The system which generated this result transmitted reference range: 0.0. The reference range was not used to interpret this result as normal/abnormal. PLATELET COUNT (test code = 1015) 225 K/UL 130-400 ABSOLUTE NEUTROPHILS (test code = 1066) 2.62 K/UL 1.50-7.50 ABSOLUTE LYMPHOCYTES (test code = 1067) 1.22 K/UL 1.00-4.00 ABSOLUTE MONOCYTES (test code = 1068) 0.36 K/UL 0.20-1.00 ABSOLUTE EOSINOPHILS (test code = 1040) 0.13 K/UL 0.00-0.50 ABSOLUTE BASOPHILS (test code = 1069) 0.02 K/UL 0.00-0.20 ABS IMMATURE GRANULOCYTES (test code = 1020) 0.01 K/UL 0.00-0.10 ABS NUCLEATED RBCS (test code = 26801) 0.00 K/UL 0.00-0.11 CBC W/AUTO [id number] 00:00:00* Test Item Value Reference Range Interpretation Comme nts WBC (test code = 1001) 4.4 K/UL [...] = 1013) 0.5 % IMMATURE GRANYLOCYTES (test code = 1036) 0.2 % NUCLEATED RBCS (test code = 1065) 0.0 /100WBC'S PLATELET COUNT (test code = 1015) 225 K/UL ABSOLUTE NEUTROPHILS (test c ode = 1066) 2.62 K/UL ABSOLUTE LYMPHOCYTES (test c ode = 1067) 1.22 K/UL ABSOLUTE MONOCYTES (test cod e = 1068) 0.36 K/UL ABSOLUTE EOSINOPHILS (test c ode = 1040) 0.13 K/UL ABSOLUTE BASOPHILS (test cod e = 1069) 0.02 K/UL ABS IMMATURE GRANULOCYTES (t est code = 1020) 0.01 K/UL ABS NUCLEATED RBCS (test cod e = 69474) 0.00 K/UL HEMOGLOBIN [id number] 00:00:00* Test Item Value Reference Range Interpretation Comme nts HEMOGLOBIN A1c (test code = 50493) 6.2 % LIPID [id number] 00:00:00* Test Item Value Reference Range Interpretation Comme nts CHOLESTEROL (test code = 2210) 183 MG/DL TRIGLYCERIDES (test code = 2232) 97 MG/DL HDL CHOLESTEROL (test code = 2220) 67 MG/DL CALC LDL CHOL (test code = 2237) 97 MG/DL RISK RATIO LDL/HDL (test cod e = 2238) 1.45 RATIO COMPREHENSIVE METABOLIC [id number] 00:00:00* Test Item Value Reference Range Interpretation Comme nts GLUCOSE (test code = 2217) 98 MG/DL BUN (test code = 2208) 27 MG/DL CREATININE (test code = 2214) 0.78 MG/DL eGFR (2020 CKD-EPI) (test co de = 95360) 80 ML/MIN/1.73 CALC BUN/CREAT (test code = 2235) 35 RATIO SODIUM (test code = 2231) 141 MEQ/L POTASSIUM (test code = 2228) 4.3 MEQ/L CHLORIDE (test code = 2215) 101 MEQ/L CARBON DIOXIDE (test code = 2206) 24 MEQ/L CALCIUM (test code = 2209) 10.0 MG/DL PROTEIN, TOTAL (test code = 2229) 7.1 G/DL ALBUMIN (test code = 2201) 4.7 G/DL CALC GLOBULIN (test code = 2240) 2.4 G/DL CALC A/G RATIO (test code = 2234) 2.0 RATIO BILIRUBIN, TOTAL (test code = 2207) 0.4 MG/DL ALKALINE PHOSPHATASE (test code = 2204) 81 U/L AST (test code = 2218) 14 U/L ALT (test code = 2219) 11 U/L ACUTE HEPATITIS [id number] 00:00:00* Test Item Value Reference Range Interpretation Comme nts HEPATITIS A IgM (test code = 26174) NON-REACTIVE HEPATITIS B CORE IgM (test c ode = 4644) NON-REACTIVE HEPATITIS B SURF AG (test co de = 2739) NON-REACTIVE HEPATITIS C ANTIBODY (test c ode = 4675) NON-REACTIVE INTERPRETATION HEPATITIS A: (test code = 2552) (NOTE) INTERPRETATION HEPATITIS B: (test code = 49067) (NOTE) INTERPRETATION HEPATITIS C: (test code = 00426) (NOTE) CBC W/AUTO [id number] 00:00:00* Test Item Value Reference Range Interpretation Comme nts WBC (test code = 1001) 4.4 K/UL [...] = 1013) 0.5 % IMMATURE GRANYLOCYTES (test code = 1036) 0.2 % NUCLEATED RBCS (test code = 1065) 0.0 /100WBC'S PLATELET COUNT (test code = 1015) 225 K/UL ABSOLUTE NEUTROPHILS (test c ode = 1066) 2.62 K/UL ABSOLUTE LYMPHOCYTES (test c ode = 1067) 1.22 K/UL ABSOLUTE MONOCYTES (test cod e = 1068) 0.36 K/UL ABSOLUTE EOSINOPHILS (test c ode = 1040) 0.13 K/UL ABSOLUTE BASOPHILS (test cod e = 1069) 0.02 K/UL ABS IMMATURE GRANULOCYTES (t est code = 1020) 0.01 K/UL ABS NUCLEATED RBCS (test cod e = 26347) 0.00 K/UL LIPID [id number] 00:00:00* Test Item Value Reference Range Interpretation Comme nts CHOLESTEROL (test code = 2210) 183 MG/DL TRIGLYCERIDES (test code = 2232) 97 MG/DL HDL CHOLESTEROL (test code = 2220) 67 MG/DL CALC LDL CHOL (test code = 2237) 97 MG/DL RISK RATIO LDL/HDL (test cod e = 2238) 1.45 RATIO Edwin Carla AustinHEMOGLOBIN [id number] 00:00:00* Test Item Value Reference Range Interpretation Comme nts HEMOGLOBIN A1c (test code = 73361) 6.2 % LIPID [id number] 00:00:00* Test Item Value Reference Range Interpretation Comme nts CHOLESTEROL (test code = 2210) 183 MG/DL TRIGLYCERIDES (test code = 2232) 97 MG/DL HDL CHOLESTEROL (test code = 2220) 67 MG/DL CALC LDL CHOL (test code = 2237) 97 MG/DL RISK RATIO LDL/HDL (test cod e = 2238) 1.45 RATIO COMPREHENSIVE METABOLIC [id number] 00:00:00* Test Item Value Reference Range Interpretation Comme nts GLUCOSE (test code = 2217) 98 MG/DL BUN (test code = 2208) 27 MG/DL CREATININE (test code = 2214) 0.78 MG/DL eGFR (2020 CKD-EPI) (test co de = 95459) 80 ML/MIN/1.73 CALC BUN/CREAT (test code = 2235) 35 RATIO SODIUM (test code = 2231) 141 MEQ/L POTASSIUM (test code = 2228) 4.3 MEQ/L CHLORIDE (test code = 2215) 101 MEQ/L CARBON DIOXIDE (test code = 2206) 24 MEQ/L CALCIUM (test code = 2209) 10.0 MG/DL PROTEIN, TOTAL (test code = 2229) 7.1 G/DL ALBUMIN (test code = 2201) 4.7 G/DL CALC GLOBULIN (test code = 2240) 2.4 G/DL CALC A/G RATIO (test code = 2234) 2.0 RATIO BILIRUBIN, TOTAL (test code = 2207) 0.4 MG/DL ALKALINE PHOSPHATASE (test code = 2204) 81 U/L AST (test code = 2218) 14 U/L ALT (test code = 2219) 11 U/L ACUTE HEPATITIS [id number] 00:00:00* Test Item Value Reference Range Interpretation Comme nts HEPATITIS A IgM (test code = 28280) NON-REACTIVE HEPATITIS B CORE IgM (test c ode = 4644) NON-REACTIVE HEPATITIS B SURF AG (test co de = 2737) NON-REACTIVE HEPATITIS C ANTIBODY (test c ode = 4674) NON-REACTIVE INTERPRETATION HEPATITIS A: (test code = 2552) (NOTE) INTERPRETATION HEPATITIS B: (test code = 78372) (NOTE) INTERPRETATION HEPATITIS C: (test code = 63048) (NOTE) COMPREHENSIVE METABOLIC [id number] 00:00:00* Test Item Value Reference Range Interpretation Comme nts GLUCOSE (test code = 2217) 98 MG/DL BUN (test code = 2208) 27 MG/DL CREATININE (test code = 2214) 0.78 MG/DL eGFR (2020 CKD-EPI) (test co de = 46722) 80 ML/MIN/1.73 CALC BUN/CREAT (test code = 2235) 35 RATIO SODIUM (test code = 2231) 141 MEQ/L POTASSIUM (test code = 2228) 4.3 MEQ/L CHLORIDE (test code = 2215) 101 MEQ/L CARBON DIOXIDE (test code = 2206) 24 MEQ/L CALCIUM (test code = 2209) 10.0 MG/DL PROTEIN, TOTAL (test code = 2229) 7.1 G/DL ALBUMIN (test code = 2201) 4.7 G/DL CALC GLOBULIN (test code = 2240) 2.4 G/DL CALC A/G RATIO (test code = 2234) 2.0 RATIO BILIRUBIN, TOTAL (test code = 2207) 0.4 MG/DL ALKALINE PHOSPHATASE (test code = 2204) 81 U/L AST (test code = 2218) 14 U/L ALT (test code = 2219) 11 U/L Edwin Chavira HEPATITIS [id number] 00:00:00* Test Item Value Reference Range Interpretation Comme nts HEPATITIS A IgM (test code = 36458) NON-REACTIVE HEPATITIS B CORE IgM (test c ode = 4644) NON-REACTIVE HEPATITIS B SURF AG (test co de = 2739) NON-REACTIVE HEPATITIS C ANTIBODY (test c ode = 4675) NON-REACTIVE INTERPRETATION HEPATITIS A: (test code = 2552) (NOTE) INTERPRETATION HEPATITIS B: (test code = 23017) (NOTE) INTERPRETATION HEPATITIS C: (test code = 74657) (NOTE) Edwin ShermanCBC W/AUTO [id number] 00:00:00* Test Item Value Reference Range Interpretation Comme nts WBC (test code = 1001) 4.4 K/UL [...] = 1013) 0.5 % IMMATURE GRANYLOCYTES (test code = 1036) 0.2 % NUCLEATED RBCS (test code = 1065) 0.0 /100WBC'S PLATELET COUNT (test code = 1015) 225 K/UL ABSOLUTE NEUTROPHILS (test c ode = 1066) 2.62 K/UL ABSOLUTE LYMPHOCYTES (test c ode = 1067) 1.22 K/UL ABSOLUTE MONOCYTES (test cod e = 1068) 0.36 K/UL ABSOLUTE EOSINOPHILS (test c ode = 1040) 0.13 K/UL ABSOLUTE BASOPHILS (test cod e = 1069) 0.02 K/UL ABS IMMATURE GRANULOCYTES (t est code = 1020) 0.01 K/UL ABS NUCLEATED RBCS (test cod e = 60565) 0.00 K/UL Edwin ShermanHEMOGLOBIN [id number] 00:00:00* Test Item Value Reference Range Interpretation Comme nts HEMOGLOBIN A1c (test code = 57902) 6.2 % Edwin ShermanCBC W/AUTO [id number] 00:00:00* Test Item Value Reference Range Interpretation Comme nts WBC (test code = 1001) 4.4 K/UL [...] = 1013) 0.2 % IMMATURE GRANULOCYTES (test code = 1036) 0.0 % NUCLEATED RBCS (test code = 1065) 0.0 /100WBC'S PLATELET COUNT (test code = 1015) 225 K/UL ABSOLUTE NEUTROPHILS (test c ode = 1066) 3.05 K/UL ABSOLUTE LYMPHOCYTES (test c ode = 1067) 0.90 K/UL ABSOLUTE MONOCYTES (test cod e = 1068) 0.30 K/UL ABSOLUTE EOSINOPHILS (test c ode = 1040) 0.14 K/UL ABSOLUTE BASOPHILS (test cod e = 1069) 0.01 K/UL ABS IMMATURE GRANULOCYTES (t est code = 1020) 0.00 K/UL ABS NUCLEATED RBCS (test cod e = 12522) 0.00 K/UL LIPID [id number] 00:00:00* Test Item Value Reference Range Interpretation Comme nts CHOLESTEROL (test code = 2210) 159 MG/DL TRIGLYCERIDES (test code = 2232) 112 MG/DL HDL CHOLESTEROL (test code = 2220) 59 MG/DL CALC LDL CHOL (test code = 2237) 79 MG/DL RISK RATIO LDL/HDL (test cod e = 2238) 1.34 RATIO Edwin Aguirre [place]MOGLOBIN [id number] 00:00:00* Test Item Value Reference Range Interpretation Comme nts HEMOGLOBIN A1c (test code = 88958) 6.0 % LIPID [id number] 00:00:00* Test Item Value Reference Range Interpretation Comme nts CHOLESTEROL (test code = 2210) 159 MG/DL TRIGLYCERIDES (test code = 2232) 112 MG/DL HDL CHOLESTEROL (test code = 2220) 59 MG/DL CALC LDL CHOL (test code = 2237) 79 MG/DL RISK RATIO LDL/HDL (test cod e = 2238) 1.34 RATIO COMPREHENSIVE METABOLIC [id number] 00:00:00* Test Item Value Reference Range Interpretation Comme nts GLUCOSE (test code = 2217) 117 MG/DL BUN (test code = 2208) 19 MG/DL CREATININE (test code = 2214) 0.63 MG/DL eGFR AMER. (test cod e = 83156) 102 ML/MIN/1.73 eGFR NON- AMER. (test code = 26927) 88 ML/MIN/1.73 CALC BUN/CREAT (test code = 2235) 30 RATIO SODIUM (test code = 2231) 144 MEQ/L POTASSIUM (test code = 2228) 4.4 MEQ/L CHLORIDE (test code = 2215) 108 MEQ/L CARBON DIOXIDE (test code = 2206) 24 MEQ/L CALCIUM (test code = 2209) 9.2 MG/DL PROTEIN, TOTAL (test code = 2229) 6.4 G/DL ALBUMIN (test code = 2201) 4.2 G/DL CALC GLOBULIN (test code = 2240) 2.2 G/DL CALC A/G RATIO (test code = 2234) 1.9 RATIO BILIRUBIN, TOTAL (test code = 2207) 0.3 MG/DL ALKALINE PHOSPHATASE (test code = 2204) 72 U/L AST (test code = 2218) 13 U/L ALT (test code = 2219) 11 U/L MICROALBUMIN/CREATININE, RANDOM AND [id number] 00:00:00* Test Item Value Reference Range Interpretation Comme nts CREATININE, URINE, CONC. (te st code = 2072) 158.6 MG/DL ALBUMIN, URINE, RANDOM (test code = 36433) 0.8 MG/DL CALC ALBUMIN/CREAT, RND (mercy t code = 20902) 5 MG/G CBC W/AUTO [id number] 00:00:00* Test Item Value Reference Range Interpretation Comme nts WBC (test code = 1001) 4.4 K/UL [...] = 1013) 0.2 % IMMATURE GRANULOCYTES (test code = 1036) 0.0 % NUCLEATED RBCS (test code = 1065) 0.0 /100WBC'S PLATELET COUNT (test code = 1015) 225 K/UL ABSOLUTE NEUTROPHILS (test c ode = 1066) 3.05 K/UL ABSOLUTE LYMPHOCYTES (test c ode = 1067) 0.90 K/UL ABSOLUTE MONOCYTES (test cod e = 1068) 0.30 K/UL ABSOLUTE EOSINOPHILS (test c ode = 1040) 0.14 K/UL ABSOLUTE BASOPHILS (test cod e = 1069) 0.01 K/UL ABS IMMATURE GRANULOCYTES (t est code = 1020) 0.00 K/UL ABS NUCLEATED RBCS (test cod e = 58031) 0.00 K/UL HEMOGLOBIN [id number] 00:00:00* Test Item Value Reference Range Interpretation Comme nts HEMOGLOBIN A1c (test code = 12500) 6.0 % LIPID [id number] 00:00:00* Test Item Value Reference Range Interpretation Comme nts CHOLESTEROL (test code = 2210) 159 MG/DL TRIGLYCERIDES (test code = 2232) 112 MG/DL HDL CHOLESTEROL (test code = 2220) 59 MG/DL CALC LDL CHOL (test code = 2237) 79 MG/DL RISK RATIO LDL/HDL (test cod e = 2238) 1.34 RATIO COMPREHENSIVE METABOLIC [id number] 00:00:00* Test Item Value Reference Range Interpretation Comme nts GLUCOSE (test code = 2217) 117 MG/DL BUN (test code = 2208) 19 MG/DL CREATININE (test code = 2214) 0.63 MG/DL eGFR AMER. (test cod e = 70378) 102 ML/MIN/1.73 eGFR NON- AMER. (test code = 42651) 88 ML/MIN/1.73 CALC BUN/CREAT (test code = 2235) 30 RATIO SODIUM (test code = 2231) 144 MEQ/L POTASSIUM (test code = 2228) 4.4 MEQ/L CHLORIDE (test code = 2215) 108 MEQ/L CARBON DIOXIDE (test code = 2206) 24 MEQ/L CALCIUM (test code = 2209) 9.2 MG/DL PROTEIN, TOTAL (test code = 2229) 6.4 G/DL ALBUMIN (test code = 2201) 4.2 G/DL CALC GLOBULIN (test code = 2240) 2.2 G/DL CALC A/G RATIO (test code = 2234) 1.9 RATIO BILIRUBIN, TOTAL (test code = 2207) 0.3 MG/DL ALKALINE PHOSPHATASE (test code = 2204) 72 U/L AST (test code = 2218) 13 U/L ALT (test code = 2219) 11 U/L COMPREHENSIVE METABOLIC [id number] 00:00:00* Test Item Value Reference Range Interpretation Comme nts GLUCOSE (test code = 2217) 117 MG/DL BUN (test code = 2208) 19 MG/DL CREATININE (test code = 2214) 0.63 MG/DL eGFR AMER. (test cod e = 59475) 102 ML/MIN/1.73 eGFR NON- AMER. (test code = 55300) 88 ML/MIN/1.73 CALC BUN/CREAT (test code = 2235) 30 RATIO SODIUM (test code = 2231) 144 MEQ/L POTASSIUM (test code = 2228) 4.4 MEQ/L CHLORIDE (test code = 2215) 108 MEQ/L CARBON DIOXIDE (test code = 2206) 24 MEQ/L CALCIUM (test code = 2209) 9.2 MG/DL PROTEIN, TOTAL (test code = 2229) 6.4 G/DL ALBUMIN (test code = 2201) 4.2 G/DL CALC GLOBULIN (test code = 2240) 2.2 G/DL CALC A/G RATIO (test code = 2234) 1.9 RATIO BILIRUBIN, TOTAL (test code = 2207) 0.3 MG/DL ALKALINE PHOSPHATASE (test code = 2203) 72 U/L AST (test code = 2218) 13 U/L ALT (test code = 221) 11 U/L Edwin ShermanMICROALBUMIN/CREATININE, RANDOM AND [id number] 00:00:00* Test Item Value Reference Range Interpretation Comme nts CREATININE, URINE, CONC. (te st code = 207) 158.6 MG/DL ALBUMIN, URINE, RANDOM (test code = 03892) 0.8 MG/DL CALC ALBUMIN/CREAT, RND (mercy t code = 38714) 5 MG/G MICROALBUMIN/CREATININE, RANDOM AND [id number] 00:00:00* Test Item Value Reference Range Interpretation Comme nts CREATININE, URINE, CONC. (te st code = 2071) 158.6 MG/DL ALBUMIN, URINE, RANDOM (test code = 82087) 0.8 MG/DL CALC ALBUMIN/CREAT, RND (mercy t code = 43490) 5 MG/G Edwin ShermanCBC W/AUTO [id number] 00:00:00* Test Item Value Reference Range Interpretation Comme nts WBC (test code = 1001) 4.4 K/UL [...] = 1013) 0.2 % IMMATURE GRANULOCYTES (test code = 1036) 0.0 % NUCLEATED RBCS (test code = 1065) 0.0 /100WBC'S PLATELET COUNT (test code = 1015) 225 K/UL ABSOLUTE NEUTROPHILS (test c ode = 1066) 3.05 K/UL ABSOLUTE LYMPHOCYTES (test c ode = 1067) 0.90 K/UL ABSOLUTE MONOCYTES (test cod e = 1068) 0.30 K/UL ABSOLUTE EOSINOPHILS (test c ode = 1040) 0.14 K/UL ABSOLUTE BASOPHILS (test cod e = 1069) 0.01 K/UL ABS IMMATURE GRANULOCYTES (t est code = 1020) 0.00 K/UL ABS NUCLEATED RBCS (test cod e = 87179) 0.00 K/UL Edwin ShermanHEMOGLOBIN [id number] 00:00:00* Test Item Value Reference Range Interpretation Comme nts HEMOGLOBIN A1c (test code = 19129) 6.0 % Edwin ShermanCBC W/AUTO [id number] 00:00:00* Test Item Value Reference Range Interpretation Comme nts WBC (test code = 1001) 4.3 K/UL [...] (test code = 1015) 223 K/UL HEMOGLOBIN [id number] 00:00:00* Test Item Value Reference Range Interpretation Comme nts HEMOGLOBIN A1c (test code = 60962) 5.9 % LIPID [id number] 00:00:00* Test Item Value Reference Range Interpretation Comme nts CHOLESTEROL (test code = 2210) 181 MG/DL TRIGLYCERIDES (test code = 2232) 62 MG/DL HDL CHOLESTEROL (test code = 2220) 82 MG/DL CALC LDL CHOL (test code = 2237) 85 MG/DL RISK RATIO LDL/HDL (test cod e = 2238) 1.04 RATIO COMPREHENSIVE METABOLIC [id number] 00:00:00* Test Item Value Reference Range Interpretation Comme nts GLUCOSE (test code = 2217) 115 MG/DL BUN (test code = 2208) 23 MG/DL CREATININE (test code = 2214) 0.67 MG/DL eGFR AMER. (test cod e = 89071) 101 ML/MIN/1.73 eGFR NON- AMER. (test code = 36363) 87 ML/MIN/1.73 CALC BUN/CREAT (test code = 2235) 34 RATIO SODIUM (test code = 2231) 141 MEQ/L POTASSIUM (test code = 2228) 4.3 MEQ/L CHLORIDE (test code = 2215) 103 MEQ/L CARBON DIOXIDE (test code = 2206) 26 MEQ/L CALCIUM (test code = 2209) 9.4 MG/DL PROTEIN, TOTAL (test code = 2229) 7.0 G/DL ALBUMIN (test code = 2201) 4.7 G/DL CALC GLOBULIN (test code = 2240) 2.3 G/DL CALC A/G RATIO (test code = 2234) 2.0 RATIO BILIRUBIN, TOTAL (test code = 2207) 0.3 MG/DL ALKALINE PHOSPHATASE (test code = 2204) 69 U/L AST (test code = 2218) 19 U/L ALT (test code = 2219) 14 U/L MICROALBUMIN/CREATININE, RANDOM AND [id number] 00:00:00* Test Item Value Reference Range Interpretation Comme nts CREATININE, URINE, CONC. (te st code = 2072) 140.1 MG/DL ALBUMIN, URINE, RANDOM (test code = 12089) 1.2 MG/DL CALC ALBUMIN/CREAT, RND (mercy t code = 75705) 9 MG/G LIPID [id number] 00:00:00* Test Item Value Reference Range Interpretation Comme nts CHOLESTEROL (test code = 2210) 181 MG/DL TRIGLYCERIDES (test code = 2232) 62 MG/DL HDL CHOLESTEROL (test code = 2220) 82 MG/DL CALC LDL CHOL (test code = 2237) 85 MG/DL RISK RATIO LDL/HDL (test cod e = 2238) 1.04 RATIO Edwin Aguirre [facility] W/AUTO [id number] 00:00:00* Test Item Value Reference Range Interpretation Comme nts WBC (test code = 1001) 4.3 K/UL [...] (test code = 1015) 223 K/UL HEMOGLOBIN [id number] 00:00:00* Test Item Value Reference Range Interpretation Comme nts HEMOGLOBIN A1c (test code = 05323) 5.9 % LIPID [id number] 00:00:00* Test Item Value Reference Range Interpretation Comme nts CHOLESTEROL (test code = 2210) 181 MG/DL TRIGLYCERIDES (test code = 2232) 62 MG/DL HDL CHOLESTEROL (test code = 2220) 82 MG/DL CALC LDL CHOL (test code = 2237) 85 MG/DL RISK RATIO LDL/HDL (test cod e = 2238) 1.04 RATIO COMPREHENSIVE METABOLIC [id number] 00:00:00* Test Item Value Reference Range Interpretation Comme nts GLUCOSE (test code = 2217) 115 MG/DL BUN (test code = 2208) 23 MG/DL CREATININE (test code = 2214) 0.67 MG/DL eGFR AMER. (test cod e = 09146) 101 ML/MIN/1.73 eGFR NON- AMER. (test code = 10564) 87 ML/MIN/1.73 CALC BUN/CREAT (test code = 2235) 34 RATIO SODIUM (test code = 2231) 141 MEQ/L POTASSIUM (test code = 2228) 4.3 MEQ/L CHLORIDE (test code = 2215) 103 MEQ/L CARBON DIOXIDE (test code = 2206) 26 MEQ/L CALCIUM (test code = 2209) 9.4 MG/DL PROTEIN, TOTAL (test code = 2229) 7.0 G/DL ALBUMIN (test code = 2201) 4.7 G/DL CALC GLOBULIN (test code = 2240) 2.3 G/DL CALC A/G RATIO (test code = 2234) 2.0 RATIO BILIRUBIN, TOTAL (test code = 2207) 0.3 MG/DL ALKALINE PHOSPHATASE (test code = 2204) 69 U/L AST (test code = 2218) 19 U/L ALT (test code = 2219) 14 U/L MICROALBUMIN/CREATININE, RANDOM AND [id number] 00:00:00* Test Item Value Reference Range Interpretation Comme nts CREATININE, URINE, CONC. (te st code = 2072) 140.1 MG/DL ALBUMIN, URINE, RANDOM (test code = 78714) 1.2 MG/DL CALC ALBUMIN/CREAT, RND (mercy t code = 45687) 9 MG/G COMPREHENSIVE METABOLIC [id number] 00:00:00* Test Item Value Reference Range Interpretation Comme nts GLUCOSE (test code = 2217) 115 MG/DL BUN (test code = 2208) 23 MG/DL CREATININE (test code = 2214) 0.67 MG/DL eGFR AMER. (test cod e = 54248) 101 ML/MIN/1.73 eGFR NON- AMER. (test code = 68144) 87 ML/MIN/1.73 CALC BUN/CREAT (test code = 2235) 34 RATIO SODIUM (test code = 2231) 141 MEQ/L POTASSIUM (test code = 2228) 4.3 MEQ/L CHLORIDE (test code = 2215) 103 MEQ/L CARBON DIOXIDE (test code = 2206) 26 MEQ/L CALCIUM (test code = 2209) 9.4 MG/DL PROTEIN, TOTAL (test code = 2229) 7.0 G/DL ALBUMIN (test code = 2201) 4.7 G/DL CALC GLOBULIN (test code = 2240) 2.3 G/DL CALC A/G RATIO (test code = 2234) 2.0 RATIO BILIRUBIN, TOTAL (test code = 2207) 0.3 MG/DL ALKALINE PHOSPHATASE (test code = 2204) 69 U/L AST (test code = 2218) 19 U/L ALT (test code = 2219) 14 U/L Edwin ShermanMICROALBUMIN/CREATININE, RANDOM AND [id number] 00:00:00* Test Item Value Reference Range Interpretation Comme nts CREATININE, URINE, CONC. (te st code = 2072) 140.1 MG/DL ALBUMIN, URINE, RANDOM (test code = 90171) 1.2 MG/DL CALC ALBUMIN/CREAT, RND (mercy t code = 22160) 9 MG/G Edwin ShermanCBC W/AUTO [id number] 00:00:00* Test Item Value Reference Range Interpretation Comme nts WBC (test code = 1001) 4.3 K/UL [...] COUNT (test code = 1015) 223 K/UL Edwin ShermanHEMOGLOBIN [id number] 00:00:00* Test Item Value Reference Range Interpretation Comme nts HEMOGLOBIN A1c (test code = 03883) 5.9 % Edwin ShermanSARS-CoV-2 (COVID-19) by RT-PCR (HIGH RISK)2020-08-18 00:00:00* Test Item Value Reference Range Interpretation Comme nts SARS-CoV-2 INTERPRETATION (t est code = 56718) NEGATIVE SOURCE (test code = 04895) NOT SPECIFIED SARS-CoV-2 (COVID-19) by RT-PCR (HIGH RISK)2020-08-18 00:00:00* Test Item Value Reference Range Interpretation Comme nts SARS-CoV-2 INTERPRETATION (t est code = 30472) NEGATIVE SOURCE (test code = 40940) NOT SPECIFIED SARS-CoV-2 (COVID-19) by RT-PCR (HIGH RISK)2020-08-18 00:00:00* Test Item Value Reference Range Interpretation Comme nts SARS-CoV-2 INTERPRETATION (t est code = 05985) NEGATIVE SOURCE (test code = 75816) NOT SPECIFIED Edwin ShermanHEMOGLOBIN [id number] 00:00:00* Test Item Value Reference Range Interpretation Comme nts HEMOGLOBIN A1c (test code = 89323) 5.7 % Edwin ShermanLIPID [id number] 00:00:00* Test Item Value Reference Range Interpretation Comme nts CHOLESTEROL (test code = 2210) 169 MG/DL TRIGLYCERIDES (test code = 2232) 92 MG/DL HDL CHOLESTEROL (test code = 2220) 74 MG/DL CALC LDL CHOL (test code = 2237) 77 MG/DL RISK RATIO LDL/HDL (test cod e = 2238) 1.04 RATIO Edwin ShermanCBC W/AUTO [id number] 00:00:00* Test Item Value Reference Range Interpretation Comme nts WBC (test code = 1001) 4.8 K/UL [...] (test code = 1015) 220 K/UL HEMOGLOBIN [id number] 00:00:00* Test Item Value Reference Range Interpretation Comme nts HEMOGLOBIN A1c (test code = 54549) 5.7 % LIPID [id number] 00:00:00* Test Item Value Reference Range Interpretation Comme nts CHOLESTEROL (test code = 2210) 169 MG/DL TRIGLYCERIDES (test code = 2232) 92 MG/DL HDL CHOLESTEROL (test code = 2220) 74 MG/DL CALC LDL CHOL (test code = 2237) 77 MG/DL RISK RATIO LDL/HDL (test cod e = 2238) 1.04 RATIO COMPREHENSIVE METABOLIC [id number] 00:00:00* Test Item Value Reference Range Interpretation Comme nts GLUCOSE (test code = 2217) 116 MG/DL BUN (test code = 2208) 26 MG/DL CREATININE (test code = 2214) 0.72 MG/DL eGFR AMER. (test cod e = 17867) 97 ML/MIN/1.73 eGFR NON- AMER. (test code = 43019) 84 ML/MIN/1.73 CALC BUN/CREAT (test code = 2235) 36 RATIO SODIUM (test code = 2231) 144 MEQ/L POTASSIUM (test code = 2228) 4.6 MEQ/L CHLORIDE (test code = 2215) 105 MEQ/L CARBON DIOXIDE (test code = 2206) 24 MEQ/L CALCIUM (test code = 2209) 9.7 MG/DL PROTEIN, TOTAL (test code = 2229) 6.9 G/DL ALBUMIN (test code = 2201) 4.6 G/DL CALC GLOBULIN (test code = 2240) 2.3 G/DL CALC A/G RATIO (test code = 2234) 2.0 RATIO BILIRUBIN, TOTAL (test code = 2207) <0.2 MG/DL ALKALINE PHOSPHATASE (test code = 2204) 68 U/L AST (test code = 2218) 14 U/L ALT (test code = 2219) 12 U/L MICROALBUMIN/CREATININE, RANDOM AND [id number] 00:00:00* Test Item Value Reference Range Interpretation Comme nts CREATININE, URINE, CONC. (te st code = 2072) 208.5 MG/DL ALBUMIN, URINE, RANDOM (test code = 33255) 1.3 MG/DL CALC ALBUMIN/CREAT, RND (mercy t code = 56054) 6 MG/G CBC W/AUTO [id number] 00:00:00* Test Item Value Reference Range Interpretation Comme nts WBC (test code = 1001) 4.8 K/UL [...] (test code = 1015) 220 K/UL HEMOGLOBIN [id number] 00:00:00* Test Item Value Reference Range Interpretation Comme nts HEMOGLOBIN A1c (test code = 06596) 5.7 % LIPID [id number] 00:00:00* Test Item Value Reference Range Interpretation Comme nts CHOLESTEROL (test code = 2210) 169 MG/DL TRIGLYCERIDES (test code = 2232) 92 MG/DL HDL CHOLESTEROL (test code = 2220) 74 MG/DL CALC LDL CHOL (test code = 2237) 77 MG/DL RISK RATIO LDL/HDL (test cod e = 2238) 1.04 RATIO COMPREHENSIVE METABOLIC [id number] 00:00:00* Test Item Value Reference Range Interpretation Comme nts GLUCOSE (test code = 2217) 116 MG/DL BUN (test code = 2208) 26 MG/DL CREATININE (test code = 2214) 0.72 MG/DL eGFR AMER. (test cod e = 43899) 97 ML/MIN/1.73 eGFR NON- AMER. (test code = 45267) 84 ML/MIN/1.73 CALC BUN/CREAT (test code = 2235) 36 RATIO SODIUM (test code = 2231) 144 MEQ/L POTASSIUM (test code = 2228) 4.6 MEQ/L CHLORIDE (test code = 2215) 105 MEQ/L CARBON DIOXIDE (test code = 2206) 24 MEQ/L CALCIUM (test code = 2209) 9.7 MG/DL PROTEIN, TOTAL (test code = 2229) 6.9 G/DL ALBUMIN (test code = 2201) 4.6 G/DL CALC GLOBULIN (test code = 2240) 2.3 G/DL CALC A/G RATIO (test code = 2234) 2.0 RATIO BILIRUBIN, TOTAL (test code = 2207) <0.2 MG/DL ALKALINE PHOSPHATASE (test code = 2204) 68 U/L AST (test code = 2218) 14 U/L ALT (test code = 2219) 12 U/L MICROALBUMIN/CREATININE, RANDOM AND [id number] 00:00:00* Test Item Value Reference Range Interpretation Comme nts CREATININE, URINE, CONC. (te st code = 2072) 208.5 MG/DL ALBUMIN, URINE, RANDOM (test code = 93692) 1.3 MG/DL CALC ALBUMIN/CREAT, RND (mercy t code = 43842) 6 MG/G COMPREHENSIVE METABOLIC [id number] 00:00:00* Test Item Value Reference Range Interpretation Comme nts GLUCOSE (test code = 2216) 116 MG/DL BUN (test code = 8) 26 MG/DL CREATININE (test code = 2214) 0.72 MG/DL eGFR AMER. (test cod e = 02022) 97 ML/MIN/1.73 eGFR NON- AMER. (test code = 84278) 84 ML/MIN/1.73 CALC BUN/CREAT (test code = 2235) 36 RATIO SODIUM (test code = 2231) 144 MEQ/L POTASSIUM (test code = 2228) 4.6 MEQ/L CHLORIDE (test code = 2215) 105 MEQ/L CARBON DIOXIDE (test code = 2206) 24 MEQ/L CALCIUM (test code = 2209) 9.7 MG/DL PROTEIN, TOTAL (test code = 2229) 6.9 G/DL ALBUMIN (test code = 2201) 4.6 G/DL CALC GLOBULIN (test code = 2240) 2.3 G/DL CALC A/G RATIO (test code = 2234) 2.0 RATIO BILIRUBIN, TOTAL (test code = 2207) <0.2 MG/DL ALKALINE PHOSPHATASE (test code = 2204) 68 U/L AST (test code = 2218) 14 U/L ALT (test code = 2219) 12 U/L Edwin Aguirre AustinMICROALBUMIN/CREATININE, RANDOM AND [id number] 00:00:00* Test Item Value Reference Range Interpretation Comme nts CREATININE, URINE, CONC. (te st code = 2072) 208.5 MG/DL ALBUMIN, URINE, RANDOM (test code = 80081) 1.3 MG/DL CALC ALBUMIN/CREAT, RND (mercy t code = 67498) 6 MG/G Edwin Aguirre LaneCBC W/AUTO [id number] 00:00:00* Test Item Value Reference Range Interpretation Comme nts WBC (test code = 1001) 4.8 K/UL [...] COUNT (test code = 1015) 220 K/UL Edwin Aguirre LanePATHOLOGIST SMEAR [id number] 00:00:00* Test Item Value Reference Range Interpretation Comme nts DIAGNOSIS: (test code = 8200) (NOTE) COMMENTS: (test code = 8205) (NOTE) MICROSCOPIC DESCRIPTION: (te st code = 8210) (NOTE) PATHOLOGIST: (test code = 8250) CPT: (test code = 8400) 38999 WBC (test code = 1001) 3.7 K/UL [...] (test code = 1016) (NOTE) PATHOLOGIST SMEAR [id number] 00:00:00* Test Item Value Reference Range Interpretation Comme nts DIAGNOSIS: (test code = 8200) (NOTE) COMMENTS: (test code = 8205) (NOTE) MICROSCOPIC DESCRIPTION: (te st code = 8210) (NOTE) PATHOLOGIST: (test code = 8250) CPT: (test code = 8400) 89168 WBC (test code = 1001) 3.7 K/UL [...] (test code = 1016) (NOTE) PATHOLOGIST SMEAR [id number] 00:00:00* Test Item Value Reference Range Interpretation Comme nts DIAGNOSIS: (test code = 8200) (NOTE) COMMENTS: (test code = 8205) (NOTE) MICROSCOPIC DESCRIPTION: (te st code = 8210) (NOTE) PATHOLOGIST: (test code = 8250) CPT: (test code = 8400) 05589 WBC (test code = 1001) 3.7 K/UL [...] K/UL COMMENTS (test code = 1016) (NOTE) Edwin Aguirre LaneCBC W/AUTO [id number] 00:00:00* Test Item Value Reference Range Interpretation Comme nts WBC (test code = 1001) 4.7 K/UL [...] code = 1015) 237 K/UL CBC W/AUTO [id number] 00:00:00* Test Item Value Reference Range Interpretation Comme nts WBC (test code = 1001) 4.7 K/UL [...] code = 1015) 237 K/UL CBC W/AUTO [id number] 00:00:00* Test Item Value Reference Range Interpretation Comme nts WBC (test code = 1001) 4.7 K/UL [...] COUNT (test code = 1015) 237 K/UL Edwin F AustinIRON BINDING CAPACITY AND IRON AND % [id number] 00:00:00* Test Item Value Reference Range Interpretation Comme nts IRON, SERUM (test code = 2) 96 UG/DL UNSATURATED IBC (test code = 58637) 282 UG/DL CALC TOTAL IBC (test code = 7) 378 UG/DL CALC % IRON SAT (test code = 9) 25 % Edwin F [id number] 00:00:00* Test Item Value Reference Range Interpretation Comme nts FERRITIN (test code = 5) 81 NG/ML Edwin F AustinIRON BINDING CAPACITY AND IRON AND % [id number] 00:00:00* Test Item Value Reference Range Interpretation Comme nts IRON, SERUM (test code = 2) 96 UG/DL UNSATURATED IBC (test code = 90758) 282 UG/DL CALC TOTAL IBC (test code = 7) 378 UG/DL CALC % IRON SAT (test code = 9) 25 % [id number] 00:00:00* Test Item Value Reference Range Interpretation Comme nts FERRITIN (test code = 5) 81 NG/ML [id number] 00:00:00* Test Item Value Reference Range Interpretation Comme nts TRANSFERRIN (test code = 4936) 333 MG/DL CBC W/AUTO [id number] 00:00:00* Test Item Value Reference Range Interpretation Comme nts WBC (test code = 1001) 3.7 K/UL [...] IRON BINDING CAPACITY AND IRON AND % [id number] 00:00:00* Test Item Value Reference Range Interpretation Comme nts IRON, SERUM (test code = 2222) 96 UG/DL UNSATURATED IBC (test code = 24217) 282 UG/DL CALC TOTAL IBC (test code = 2077) 378 UG/DL CALC % IRON SAT (test code = 2079) 25 % [id number] 00:00:00* Test Item Value Reference Range Interpretation Comme nts FERRITIN (test code = 2075) 81 NG/ML [id number] 00:00:00* Test Item Value Reference Range Interpretation Comme nts TRANSFERRIN (test code = 4936) 333 MG/DL CBC W/AUTO [id number] 00:00:00* Test Item Value Reference Range Interpretation Comme nts WBC (test code = 1001) 3.7 K/UL [...] COUNT (test code = 1015) 251 K/UL [id number] 00:00:00* Test Item Value Reference Range Interpretation Comme nts TRANSFERRIN (test code = 4936) 333 MG/DL Edwin ShermanCBC W/AUTO [id number] 00:00:00* Test Item Value Reference Range Interpretation Comme nts WBC (test code = 1001) 3.7 K/UL [...] COUNT (test code = 1015) 251 K/UL Edwin AbdiC W/AUTO [id number] 00:00:00* Test Item Value Reference Range Interpretation Comme nts WBC (test code = 1001) 3.8 K/UL [...] (test code = 1015) 241 K/UL HEMOGLOBIN [id number] 00:00:00* Test Item Value Reference Range Interpretation Comme nts HEMOGLOBIN A1c (test code = 38807) 5.9 % CBC W/AUTO [id number] 00:00:00* Test Item Value Reference Range Interpretation Comme nts WBC (test code = 1001) 3.8 K/UL [...] (test code = 1015) 241 K/UL HEMOGLOBIN [id number] 00:00:00* Test Item Value Reference Range Interpretation Comme nts HEMOGLOBIN A1c (test code = 71254) 5.9 % CBC W/AUTO [id number] 00:00:00* Test Item Value Reference Range Interpretation Comme nts WBC (test code = 1001) 3.8 K/UL [...] COUNT (test code = 1015) 241 K/UL Edwin Aguirre AustinHEMOGLOBIN [id number] 00:00:00* Test Item Value Reference Range Interpretation Comme nts HEMOGLOBIN A1c (test code = 68402) 5.9 % Edwin ShermanHEMOGLOBIN [id number] 00:00:00* Test Item Value Reference Range Interpretation Comme nts HEMOGLOBIN A1c (test code = 47935) 5.8 % HEMOGLOBIN [id number] 00:00:00* Test Item Value Reference Range Interpretation Comme nts HEMOGLOBIN A1c (test code = 11239) 5.8 % HEMOGLOBIN [id number] 00:00:00* Test Item Value Reference Range Interpretation Comme nts HEMOGLOBIN A1c (test code = 26483) 5.8 % Edwin Aguirre AustinVITAMIN B 12 AND FOLIC [id number] 00:00:00* Test Item Value Reference Range Interpretation Comme nts VITAMIN B-12 (test code = 2840) 512 PG/ML FOLIC ACID (test code = 2695) >20.0 UG/L VITAMIN B 12 AND FOLIC [id number] 00:00:00* Test Item Value Reference Range Interpretation Comme nts VITAMIN B-12 (test code = 2840) 512 PG/ML FOLIC ACID (test code = 2695) >20.0 UG/L VITAMIN B 12 AND FOLIC [id number] 00:00:00* Test Item Value Reference Range Interpretation Comme nts VITAMIN B-12 (test code = 2840) 512 PG/ML FOLIC ACID (test code = 2695) >20.0 UG/L Edwin Aguirer LaneCBC W/AUTO [id number] 00:00:00* Test Item Value Reference Range Interpretation Comme nts WBC (test code = 1001) 5.0 K/UL [...] (test code = 1015) 201 K/UL HEMOGLOBIN [id number] 00:00:00* Test Item Value Reference Range Interpretation Comme nts HEMOGLOBIN A1c (test code = 22901) 5.7 % LIPID [id number] 00:00:00* Test Item Value Reference Range Interpretation Comme nts CHOLESTEROL (test code = 2210) 177 MG/DL TRIGLYCERIDES (test code = 2232) 95 MG/DL HDL CHOLESTEROL (test code = 2220) 71 MG/DL CALC LDL CHOL (test code = 2237) 87 MG/DL RISK RATIO LDL/HDL (test cod e = 2238) 1.23 RATIO Edwin F AustinLIPID [id number] 00:00:00* Test Item Value Reference Range Interpretation Comme nts CHOLESTEROL (test code = 2210) 177 MG/DL TRIGLYCERIDES (test code = 2232) 95 MG/DL HDL CHOLESTEROL (test code = 2220) 71 MG/DL CALC LDL CHOL (test code = 2237) 87 MG/DL RISK RATIO LDL/HDL (test cod e = 2238) 1.23 RATIO COMPREHENSIVE METABOLIC [id number] 00:00:00* Test Item Value Reference Range Interpretation Comme nts GLUCOSE (test code = 2217) 114 MG/DL BUN (test code = 2208) 22 MG/DL CREATININE (test code = 2214) 0.66 MG/DL eGFR AMER. (test cod e = 19880) 103 ML/MIN/1.73 eGFR NON- AMER. (test code = 03712) 89 ML/MIN/1.73 CALC BUN/CREAT (test code = 2235) 33 RATIO SODIUM (test code = 2231) 142 MEQ/L POTASSIUM (test code = 2228) 4.4 MEQ/L CHLORIDE (test code = 2215) 102 MEQ/L CARBON DIOXIDE (test code = 2206) 28 MEQ/L CALCIUM (test code = 2209) 9.4 MG/DL PROTEIN, TOTAL (test code = 2229) 6.8 G/DL ALBUMIN (test code = 2201) 4.6 G/DL CALC GLOBULIN (test code = 2240) 2.2 G/DL CALC A/G RATIO (test code = 2234) 2.1 RATIO BILIRUBIN, TOTAL (test code = 2207) 0.3 MG/DL ALKALINE PHOSPHATASE (test code = 2204) 80 U/L AST (test code = 2218) 19 U/L ALT (test code = 2219) 14 U/L MICROALBUMIN/CREATININE, RANDOM AND [id number] 00:00:00* Test Item Value Reference Range Interpretation Comme nts CREATININE, URINE, CONC. (te st code = 2072) 147.7 MG/DL ALBUMIN, URINE, RANDOM (test code = 84778) 0.8 MG/DL CALC ALBUMIN/CREAT, RND (mercy t code = 61485) 5 MG/G CBC W/AUTO [id number] 00:00:00* Test Item Value Reference Range Interpretation Comme nts WBC (test code = 1001) 5.0 K/UL [...] (test code = 1015) 201 K/UL HEMOGLOBIN [id number] 00:00:00* Test Item Value Reference Range Interpretation Comme nts HEMOGLOBIN A1c (test code = 34312) 5.7 % COMPREHENSIVE METABOLIC [id number] 00:00:00* Test Item Value Reference Range Interpretation Comme nts GLUCOSE (test code = 2217) 114 MG/DL BUN (test code = 2208) 22 MG/DL CREATININE (test code = 2214) 0.66 MG/DL eGFR AMER. (test cod e = 29990) 103 ML/MIN/1.73 eGFR NON- AMER. (test code = 33804) 89 ML/MIN/1.73 CALC BUN/CREAT (test code = 2235) 33 RATIO SODIUM (test code = 2231) 142 MEQ/L POTASSIUM (test code = 2228) 4.4 MEQ/L CHLORIDE (test code = 2215) 102 MEQ/L CARBON DIOXIDE (test code = 2206) 28 MEQ/L CALCIUM (test code = 2209) 9.4 MG/DL PROTEIN, TOTAL (test code = 2229) 6.8 G/DL ALBUMIN (test code = 2201) 4.6 G/DL CALC GLOBULIN (test code = 2240) 2.2 G/DL CALC A/G RATIO (test code = 2234) 2.1 RATIO BILIRUBIN, TOTAL (test code = 2207) 0.3 MG/DL ALKALINE PHOSPHATASE (test code = 2204) 80 U/L AST (test code = 2218) 19 U/L ALT (test code = 2219) 14 U/L Edwin Aguirre AustinLIPID [id number] 00:00:00* Test Item Value Reference Range Interpretation Comme nts CHOLESTEROL (test code = 2210) 177 MG/DL TRIGLYCERIDES (test code = 2232) 95 MG/DL HDL CHOLESTEROL (test code = 2220) 71 MG/DL CALC LDL CHOL (test code = 2237) 87 MG/DL RISK RATIO LDL/HDL (test cod e = 2238) 1.23 RATIO COMPREHENSIVE METABOLIC [id number] 00:00:00* Test Item Value Reference Range Interpretation Comme nts GLUCOSE (test code = 2217) 114 MG/DL BUN (test code = 2208) 22 MG/DL CREATININE (test code = 2214) 0.66 MG/DL eGFR AMER. (test cod e = 20875) 103 ML/MIN/1.73 eGFR NON- AMER. (test code = 79146) 89 ML/MIN/1.73 CALC BUN/CREAT (test code = 2235) 33 RATIO SODIUM (test code = 2231) 142 MEQ/L POTASSIUM (test code = 2228) 4.4 MEQ/L CHLORIDE (test code = 2215) 102 MEQ/L CARBON DIOXIDE (test code = 2206) 28 MEQ/L CALCIUM (test code = 2209) 9.4 MG/DL PROTEIN, TOTAL (test code = 2229) 6.8 G/DL ALBUMIN (test code = 2201) 4.6 G/DL CALC GLOBULIN (test code = 2240) 2.2 G/DL CALC A/G RATIO (test code = 2234) 2.1 RATIO BILIRUBIN, TOTAL (test code = 2207) 0.3 MG/DL ALKALINE PHOSPHATASE (test code = 2204) 80 U/L AST (test code = 2218) 19 U/L ALT (test code = 2219) 14 U/L MICROALBUMIN/CREATININE, RANDOM AND [id number] 00:00:00* Test Item Value Reference Range Interpretation Comme nts CREATININE, URINE, CONC. (te st code = 2071) 147.7 MG/DL ALBUMIN, URINE, RANDOM (test code = 37041) 0.8 MG/DL CALC ALBUMIN/CREAT, RND (mercy t code = 13821) 5 MG/G MICROALBUMIN/CREATININE, RANDOM AND [id number] 00:00:00* Test Item Value Reference Range Interpretation Comme nts CREATININE, URINE, CONC. (te st code = 207) 147.7 MG/DL ALBUMIN, URINE, RANDOM (test code = 04587) 0.8 MG/DL CALC ALBUMIN/CREAT, RND (mercy t code = 59908) 5 MG/G Edwin ShermanCBC W/AUTO [id number] 00:00:00* Test Item Value Reference Range Interpretation Comme nts WBC (test code = 1001) 5.0 K/UL [...] COUNT (test code = 1015) 201 K/UL Edwin ShermanHEMOGLOBIN [id number] 00:00:00* Test Item Value Reference Range Interpretation Comme nts HEMOGLOBIN A1c (test code = 92798) 5.7 % Ediwn Sherman Notes Date/Time Note Provider Source Edwin Sherman [facility]
[2024-06-01] MEDS ORDERED: ACETAMINOPHEN 500 MG TAB ONE (09:26)
[2024-06-01] MEDS ORDERED: LIDOCAINE 4% PATCH ONE (09:26)
[2024-06-01] MEDS ORDERED: methocarbamoL 500 MG TAB ONE (09:26)
[2024-06-01] MEDS ORDERED: KETOROLAC 30 MG/ML INJ ONE (09:26)
--- NOTE | 2024-06-01 10:31 | RAD REPORT ---
EXAMINATION: XR LEFT WRIST CLINICAL INDICATION: FOOSH injury TECHNIQUE: Multiple projections of the left wrist were obtained. COMPARISON: No prior exam. FINDINGS: No acute fracture or dislocation is seen. Prominent degenerative changes seen first carpal metacarpal articulation.
--- NOTE | 2024-06-01 10:35 | EDPHYS ---
Physician Documentation [facility] Name: Adriana De La Paz Age: 78 yrs Sex: Female : 1945 Arrival Date: 06/01/2024 Time: 08:59 Bed 5 Private MD: ED Physician Yuniel Olivares HPI: 06/01 09:21 This 78 yrs old Female presents to ER via Unassigned with complaints of Fall ec2 Injury. 09:21 Patient arrives today for evaluation after falling yesterday. States that she fell on ec2 uneven concrete surface. Reports that she injured her left wrist and complains of right lateral neck pain. No LOC, no blood thinners. Patient reports she has not taken medications for her pain.. Historical: - Allergies: 09:09 tramadol; ll1 - PMHx: 09:09 Diabetes - NIDDM; Hyperlipidemia; ll1 - PSHx: 09:09 Cholecystectomy; hernia; hiatal hernia; hysterectomy; pinched nerve; throat; tubal; ll1 - Immunization history:: Adult Immunizations up to date. - Social history:: Smoking status: Patient reports the use of cigarette tobacco products, smokes .1 packs per day. ROS: 09:21 Constitutional: as per hpi ec2 Exam: 09:21 Constitutional: GEN: NAD Head: atraumatic Eyes: EOMI Ears: External ears are ec2 normal. CV: regular rate LUNGS: no respiratory distress ABD: non-distended SKIN: no evidence of rashes MSK: Left wrist with TTP to the wrist Vital Signs: 09:22 BP 131 / 97; Pulse 74; Resp 17; Temp 97.9; Pulse Ox 100% ; Weight 84.37 kg; Height 5 ll1 ft. 0 in. ; Pain 8/10; 10:50 BP 132 / 95; Pulse 72; Resp 16 S; Pulse Ox 99% on R/A; aa5 09:22 Body Mass Index 36.33 (84.37 kg, 152.4 cm) ll1 09:22 Pain Scale: Adult ll1 MDM: 09:21 Data reviewed: vital signs. ED course: Patient arrives today for evaluation of left ec2 wrist pain. Examination remarkable for wrist findings as above. Will obtain radiograph of the wrist. Differential includes contusion, fracture, dislocation.. 10:34 ED course: Wrist x-ray independently reviewed and interpreted by me, shows no bony ec2 fracture. Will discharge home. Return precautions given.. 10:35 Patient medically screened. ec2 06/01 09:21 Order name: Wrist Left (3 View) XRAY; Complete Time: 10:34 ec2 06/01 10:35 Order name: Ambrose Wrap; Complete Time: 10:42 ec2 Administered Medications: 09:38 Drug: Ketorolac IM 15 mg IM once Route: IM; Site: right gluteus; aa5 10:50 Follow up: Response: No adverse reaction aa5 09:38 Drug: Lidoderm Topical Patch 5 % (700 mg/patch) 1 patches Topical once; leave on for 12 aa5 hours; cover most painful area; may cut into smaller pieces {Note: right trapezius .} Route: Topical; Site: affected area; 09:38 Drug: Acetaminophen PO 1000 mg PO once Route: PO; aa5 10:50 Follow up: Response: No adverse reaction aa5 09:38 Drug: Methocarbamol PO 500 mg PO once Route: PO; aa5 10:50 Follow up: Response: No adverse reaction aa5 Disposition Summary: 06/01/24 10:35 Discharge Ordered Notes: Location: Home ec2 Condition: Stable ec2 Diagnosis - Sprain of carpal joint of left wrist ec2 Followup: ec2 - With: Private Physician - When: - Reason: Re-evaluation by your physician Discharge Instructions: - Discharge Summary Sheet ec2 - Wrist Sprain, Adult ec2 Forms: - Medication Reconciliation Form ec2 - Antibiotic Education ec2 - Prescription Opioid Use ec2 - Patient Portal Instructions ec2 - Leadership Thank You Letter ec2 Prescriptions: - methocarbamol 500 mg Oral tablet - take 1 tablet ORAL route 4 times per day; 10 tablet; Refills: 0, Product ec2 Selection Permitted Signatures: Dispatcher [employer] Yolanda Merino RN RN aa5 Humberto Mortensen RN RN ll1 Yuniel Olivares MD MD ec2
--- NOTE | 2024-06-01 10:35 | ER ---
Nurse's Notes [facility] Name: Adriana De La Paz Age: 78 yrs Sex: Female : 1945 Arrival Date: 06/01/2024 Time: 08:59 Bed 5 Private MD: Diagnosis: Sprain of carpal joint of left wrist Presentation: 06/01 09:09 Ebola Screen: Patient negative for fever greater than or equal to 101.5 degrees ll1 Fahrenheit, and additional compatible Ebola Virus Disease symptoms. Initial Sepsis Screen: Does the patient meet any 2 criteria? No. Patient's initial sepsis screen is negative. Does the patient have a suspected source of infection? No. Patient's initial sepsis screen is negative. Risk Assessment: Do you want to hurt yourself or someone else? Patient reports no desire to harm self or others. 09:22 Chief complaint: Patient states: Fell on uneven concrete yesterday. L wrist and neck ll1 pain since. Denies LOC. Coronavirus screen: Client denies travel out of the [place] in the last 14 days. At this time, the client does not indicate any symptoms associated with coronavirus-19. Onset of symptoms was May 31, 2024. 09:22 Method Of Arrival: Ambulatory ll1 09:22 Acuity: DEISY 4 ll1 Triage Assessment: 09:23 General: Appears uncomfortable, Behavior is calm, cooperative, appropriate for age. ll1 Pain: Complains of pain in L wrist Pain currently is 8 out of 10 on a pain scale. Quality of pain is described as aching. Musculoskeletal: Circulation, motion, and sensation intact. Capillary refill < 3 seconds, in left fingers. Reports pain in L wrist. Injury Description: Bruise. Historical: - Allergies: 09:09 tramadol; ll1 - PMHx: 09:09 Diabetes - NIDDM; Hyperlipidemia; ll1 - PSHx: 09:09 Cholecystectomy; hernia; hiatal hernia; hysterectomy; pinched nerve; throat; tubal; ll1 - Immunization history:: Adult Immunizations up to date. - Social history:: Smoking status: Patient reports the use of cigarette tobacco products, smokes .1 packs per day. Screenin:40 [facility] ED Fall Risk Assessment (Adult) History of falling in the last 3 months, aa5 including since admission Yes- single mechanical fall (1 pt) Confusion or Disorientation No (0 pts) Intoxicated or Sedated No (0 pts) Impaired Gait No (0 pts) Mobility Assist Device Used No (0 pt) Altered Elimination No (0 pt) Score/Fall Risk Level 0 - 2 = Low Risk Oriented to surroundings, Maintained a safe environment, Educated pt \T\ family on fall prevention, incl call for assistance when getting out of bed. Abuse screen: Denies threats or abuse. Nutritional screening: No deficits noted. Tuberculosis screening: No symptoms or risk factors identified. Assessment: 09:30 General: Appears uncomfortable, Behavior is calm, cooperative. Pain: Complains of pain aa5 in right trapezius and left wrist Pain currently is 8 out of 10 on a pain scale. Quality of pain is described as aching, Pain began 1 day ago. Is continuous. Neuro: Level of Consciousness is awake, alert, obeys commands, Oriented to person, place, time, situation. Cardiovascular: Patient's skin is warm and dry. Respiratory: Airway is patent Respiratory effort is even, unlabored, Respiratory pattern is regular, symmetrical. GI: No signs and/or symptoms were reported involving the gastrointestinal system. : No signs and/or symptoms were reported regarding the genitourinary system. EENT: No signs and/or symptoms were reported regarding the EENT system. Derm: Skin is pink, warm \T\ dry. Musculoskeletal: Reports pain in left wrist. 10:50 Reassessment: Patient is alert, oriented x 3, equal unlabored respirations, skin aa5 warm/dry/pink. Vital Signs: 09:22 BP 131 / 97; Pulse 74; Resp 17; Temp 97.9; Pulse Ox 100% ; Weight 84.37 kg; Height 5 ll1 ft. 0 in. ; Pain 8/10; 10:50 BP 132 / 95; Pulse 72; Resp 16 S; Pulse Ox 99% on R/A; aa5 09:22 Body Mass Index 36.33 (84.37 kg, 152.4 cm) ll1 09:22 Pain Scale: Adult ll1 ED Course: 09:04 Patient arrived in ED. mg5 09:05 Yuniel Olivares MD is Attending Physician. ec2 09:09 Arm band placed on Patient placed in an exam room, on a stretcher. ll1 09:10 Yolanda Covarrubias RN is Primary Nurse. aa5 09:10 Primary Nurse role handed off by Yolanda Covarrubias RN mb9 09:10 Beatriz Osborne, RN is Primary Nurse. mb9 09:23 Triage completed. ll1 09:30 Patient has correct armband on for positive identification. Bed in low position. Call aa5 light in reach. Side rails up X 1. Pulse ox on. NIBP on. 09:37 Yolanda Covarrubias, PETER is Primary Nurse. aa5 10:15 Wrist Left (3 View) XRAY In Process Unspecified. EDMS 10:42 Ambrose wrap to left wrist. am7 10:50 No provider procedures requiring assistance completed. Patient did not have IV access aa5 during this emergency room visit. Administered Medications: 09:38 Drug: Ketorolac IM 15 mg IM once Route: IM; Site: right gluteus; aa5 10:50 Follow up: Response: No adverse reaction aa5 09:38 Drug: Lidoderm Topical Patch 5 % (700 mg/patch) 1 patches Topical once; leave on for 12 aa5 hours; cover most painful area; may cut into smaller pieces {Note: right trapezius .} Route: Topical; Site: affected area; 09:38 Drug: Acetaminophen PO 1000 mg PO once Route: PO; aa5 10:50 Follow up: Response: No adverse reaction aa5 09:38 Drug: Methocarbamol PO 500 mg PO once Route: PO; aa5 10:50 Follow up: Response: No adverse reaction aa5 Medication: 09:41 VIS not applicable for this client. aa5 Outcome: 10:35 Discharge ordered by . ec2 10:50 Discharged to home ambulatory, with family, aa5 10:50 Condition: stable 10:50 Discharge instructions given to patient, Instructed on discharge instructions, follow up and referral plans. medication usage, Demonstrated understanding of instructions, follow-up care, medications, Prescriptions given X 1, 10:52 Patient left the ED. aa5 Signatures: Dispatcher [employer] EDMT Yolanda Covarrubias, PETER GREEN aa5 Humberto Mortensen RN RN ll1 Beatriz Osborne, RN RN mb9 Kristen Rodriguez mg5 Yuniel Olivares MD MD 2 Shani Reyes am7
== END 2024-06-01 10:52 | disposition home or self-care (01) ==
LOC: ER 08:59
DX: S63.512A Sprain of carpal joint of left wrist, initial encounter (principal)
CPT/HCPCS: 73110; J2001